=== PATIENT | female | born 1940 | race Caucasian/White ===

== ENCOUNTER 2016-12-12 06:44 | Day surgery (SDC) | payer OTHER ==
[2016-12-12] MEDS ORDERED: TRASTUZUMAB IVPB ONE (08:00)
[2016-12-12] MEDS ORDERED: SODIUM CHLORIDE IVPB ONE (08:00)
[2016-12-12 08:25] LABS: BASOPHIL 1.5 % (0-2.0); EOSINOPHIL 2.1 % (0-4.5); MCHC 33.6 g/dl (32.0-36.0); MEAN CELL VOLUME 89.2 fl (80-96); MEAN PLT VOLUME 9.8 fl (7.5-11.1); NEUTROPHILS 64.3 % (42.8-82.8); PLATELET COUNT 127 K/MM3 (134-434); RDW 14.1 % (11.6-15.6); WHITE BLOOD COUNT 10.9 K/mm3 (4.0-10.0)
[2016-12-12 13:17] VITALS: BMI 24.7
[2016-12-12 13:38] VITALS: BP 122/72; PULSE 72; TEMP 98
== END 2016-12-12 10:15 | disposition home or self-care (01) ==
LOC: JONCCHEMO 06:44 → J7W 09:02 → JONCCHEMO 10:15
PROVIDERS: ATTEND Internal Medicine Hematology & Oncology
PROC: 3E04305 Introduction of Other Antineoplastic into Central Vein, Percutaneous Approach (ICD-10-PCS; principal; 2016-12-12)
PROC: 3E0437Z Introduction of Electrolytic and Water Balance Substance into Central Vein, Percutaneous Approach (ICD-10-PCS; 2016-12-12)
DX: Z51.11 Encounter for antineoplastic chemotherapy (principal); C50.212 Malignant neoplasm of upper-inner quadrant of left female breast
CPT/HCPCS: 36415; 85025; 96413; J9355

== ENCOUNTER 2017-01-02 07:07 | Day surgery (SDC) | payer OTHER ==
[2017-01-02] MEDS ORDERED: SODIUM CHLORIDE IVPB ONE (08:00)
[2017-01-02] MEDS ORDERED: TRASTUZUMAB IVPB ONE (08:00)
[2017-01-02 08:26] LABS: BASOPHIL 1.2 % (0-2.0); EOSINOPHIL 2.6 % (0-4.5); MCH 30.1 pg (25.7-33.7); MCHC 33.1 g/dl (32.0-36.0); MEAN CELL VOLUME 90.8 fl (80-96); MEAN PLT VOLUME 9.9 fl (7.5-11.1); NEUTROPHILS 66.1 % (42.8-82.8); PLATELET COUNT 120 K/MM3 (134-434); RDW 14.4 % (11.6-15.6); WHITE BLOOD COUNT 8.6 K/mm3 (4.0-10.0)
[2017-01-02 09:29] VITALS: PULSE 66
[2017-01-02 10:37] VITALS: BP 130/74; TEMP 98.3
== END 2017-01-02 10:38 | disposition home or self-care (01) ==
LOC: JONCCHEMO 07:07 → J7W 09:08 → JONCCHEMO 10:38
PROVIDERS: ATTEND Internal Medicine Hematology & Oncology
DX: Z51.11 Encounter for antineoplastic chemotherapy (principal); C50.919 Malignant neoplasm of unspecified site of unspecified female breast
CPT/HCPCS: 36415; 85025; 96413; J9355

== ENCOUNTER 2020-10-29 10:16 | Emergency (ER) | payer OTHER ==
[2020-10-29 10:25] VITALS: BMI 25.0
[2020-10-29 15:22] VITALS: BP 122/76; PULSE 103; TEMP 97.9
== END 2020-10-29 17:48 | disposition home or self-care (01) ==
LOC: JER 10:16
DX: M51.24 Other intervertebral disc displacement, thoracic region (principal); M54.6 Pain in thoracic spine
CPT/HCPCS: 72128-TC; 99284-25

== ENCOUNTER 2020-11-10 04:10 | Inpatient (IN) | payer OTHER ==
[2020-11-09 10:40] VITALS: BMI 24.2
[2020-11-10] MEDS ORDERED: VANCOMYCIN 1,000 MG VIAL (RESTRICTED TO ID ONLY) ONE (07:15)
[2020-11-10] MEDS ORDERED: GENTAMICIN SO4 80 MG/2 ML VIAL ONE (07:15)
[2020-11-10] MEDS ORDERED: fentaNYL CITRATE 250 MCG/5 ML VIAL ONE (07:40)
[2020-11-10] MEDS ORDERED: PROPOFOL 20 ML ONE (07:41)
[2020-11-10] MEDS ORDERED: SUCCINYLCHOLINE CHLORIDE 200 MG/10 ML SYRINGE ONE (07:41)
[2020-11-10] MEDS ORDERED: MIDAZOLAM HCL 2 MG/2 ML SINGLE DOSE VIAL ONE (07:41)
[2020-11-10] MEDS ORDERED: ROCURONIUM BROMIDE 50 MG/5 ML SYRINGE ONE ×2 (07:41→08:46)
[2020-11-10] MEDS ORDERED: EPHEDRINE SULFATE/0.9% NACL/PF 50 MG/10 ML SYRINGE NR ONE (07:51)
[2020-11-10] MEDS ORDERED: LIDOCAINE 1%/EPI 1:100000 (50 ML MULTI DOSE VIAL) INF ONE (08:38)
[2020-11-10] MEDS ORDERED: ceFAZolin SODIUM 1 GM VIAL IVPB ONE (08:38)
[2020-11-10] MEDS ORDERED: VANCOMYCIN 1,000 MG VIAL (RESTRICTED TO ID ONLY) IVPB ONE (08:38)
[2020-11-10] MEDS ORDERED: KETAMINE HCL 200 MG/20 ML VIAL ONE (09:03)
[2020-11-10] MEDS ORDERED: BUPIVACAINE LIPOSOME/PF (EXPAREL) 266 MG/20 ML VIAL ONE (09:28)
[2020-11-10] MEDS ORDERED: HYDROmorphone HCl 2 MG/ML VIAL ONE ×2 (09:51→12:37)
[2020-11-10] MEDS ORDERED: DEXAMETHASONE SOD PHOSPHATE 4 MG/1 ML VIAL ONE ×2 (10:15→10:16)
[2020-11-10] MEDS ORDERED: ONDANSETRON 4 MG/2 ML VIAL ONE (10:16)
[2020-11-10] MEDS ORDERED: PHENYLEPHRINE HCL 10 MG/1 ML SINGLE DOSE VIAL ONE (10:16)
[2020-11-10] MEDS ORDERED: TRANEXAMIC ACID 1000 MG/10 ML VIAL ONE ×2 (10:16→11:29)
[2020-11-10] MEDS ORDERED: ceFAZolin SODIUM 1 GM VIAL ONE (10:16)
[2020-11-10] MEDS ORDERED: ACETAMINOPHEN INJECTION 100 ML IVPB ONE (10:32)
[2020-11-10] MEDS ORDERED: GLYCOPYRROLATE 0.2 MG/1 ML VIAL ONE (11:17)
[2020-11-10] MEDS ORDERED: NEOSTIGMINE METHYLSULFATE 0.5 MG/1 ML - 10 ML MDV ONE (11:17)
[2020-11-10] MEDS ORDERED: ACETAMINOPHEN 1000 MG/100 ML VIAL (NON FORMULARY) IVPB ONE (11:30)
[2020-11-10] MEDS ORDERED: BUPIVACAINE LIPOSOME/PF (EXPAREL) 266 MG/20 ML VIAL NR ONE (11:34)
[2020-11-10] MEDS ORDERED: BUPIVACAINE HCL/PF 0.5% (5MG/ML) 10 ML VIAL IJ ONE (11:34)
[2020-11-10] MEDS ORDERED: oxyCODONE HCL 5 MG TABLET PO PRN ×2 (11:36)
[2020-11-10] MEDS ORDERED: ONDANSETRON 4 MG/2 ML VIAL IVPUSH PRN ×3 (11:36→12:56)
[2020-11-10] MEDS ORDERED: diphenhydrAMINE HCL 25 MG CAPSULE (FP) PO PRN ×2 (11:36→12:56)
[2020-11-10] MEDS ORDERED: morphine SULFATE 4 MG/ML VIAL IVPUSH PRN (11:36)
[2020-11-10] MEDS ORDERED: LACTATED RINGERS SOLUTION 1,000 ML/1,000 ML INFUS.BAG IV SCH ×2 (11:45→12:56)
[2020-11-10] MEDS ORDERED: PROMETHAZINE HCL 25 MG/1 ML VIAL IVPB PRN (12:35)
[2020-11-10] MEDS ORDERED: HYDROmorphone HCL CARPU-JECT 2 MG/1 ML DISP.SYRIN IVPUSH ONE (12:35)
[2020-11-10] MEDS ORDERED: HYDROmorphone HCl 2 MG/ML VIAL IVPUSH PRN (12:36)
[2020-11-10] MEDS ORDERED: LACTATED RINGERS SOLUTION 1,000 ML IV SCH (12:45)
[2020-11-10] MEDS ORDERED: HYDROmorphone *PCA* 10MG/50ML DISP.SYRIN PCA ONE (12:50)
[2020-11-10] MEDS: HYDROmorphone *PCA* 10MG/50ML DISP.SYRIN PCA SCH (12:50)
[2020-11-10] MEDS ORDERED: HEPARIN NA (PORCINE) 5,000 UNITS/ML 1ML VIAL SQ SCH (14:00)
[2020-11-10] MEDS ORDERED: DOCUSATE SODIUM 100 MG CAPSULE (FP) PO SCH (14:00)
[2020-11-10] MEDS: CEFAZOLIN 1 GM/D5W 1 GM/50 ML BAG IVPB SCH (17:51)
[2020-11-10] MEDS: DOCUSATE SODIUM 100 MG CAPSULE (FP) PO SCH ×2 (17:52→21:17)
[2020-11-10] MEDS ORDERED: CEFAZOLIN 1 GM in DEXTROSE 5%-WATER - 1 GM/50 ML IVPB IVPB SCH (18:00)
[2020-11-10] MEDS: HEPARIN NA (PORCINE) 5,000 UNITS/ML 1ML VIAL SQ SCH (21:17)
[2020-11-11] MEDS: CEFAZOLIN 1 GM/D5W 1 GM/50 ML BAG IVPB SCH ×3 (01:08→18:02)
[2020-11-11] MEDS: DOCUSATE SODIUM 100 MG CAPSULE (FP) PO SCH ×3 (05:50→22:50)
[2020-11-11] MEDS: HEPARIN NA (PORCINE) 5,000 UNITS/ML 1ML VIAL SQ SCH ×3 (05:50→22:50)
[2020-11-11 09:28] LABS: HEMATOCRIT 24.7 % (32.4-45.2); MCH 29.4 pg (25.7-33.7); MCHC 32.4 g/dl (32.0-36.0); MEAN CELL VOLUME 90.7 fl (80-96); MEAN PLT VOLUME 10.2 fl (7.5-11.1); PLATELET COUNT 120 K/MM3 (134-434); RBC 2.73 M/mm3 (3.60-5.2); RDW 14.3 % (11.6-15.6)
[2020-11-11] MEDS: PANTOPRAZOLE 20 MG TABLET PO SCH (09:38)
[2020-11-11] MEDS: FOLIC ACID 1 MG TABLET (FP) PO SCH (09:39)
[2020-11-11] MEDS: ESCITALOPRAM OXALATE 10 MG TABLET PO SCH (09:39)
[2020-11-11] MEDS: FERROUS SO4 325 MG TABLET (FP) PO SCH (09:39)
[2020-11-11 09:47] LABS: BLOOD UREA NITROGEN 21.9 mg/dL (7-18)
[2020-11-11 09:51] LABS: CREATININE 0.3 mg/dL (0.55-1.3)
[2020-11-11] MEDS: RAMIPRIL 2.5 MG CAPSULE PO SCH (09:53)
[2020-11-11] MEDS: SOTALOL HCL 80 MG TABLET (FP) PO SCH (09:54)
[2020-11-11] MEDS ORDERED: FERROUS SO4 325 MG TABLET (FP) PO SCH (10:00)
[2020-11-11] MEDS ORDERED: RAMIPRIL 2.5 MG CAPSULE PO SCH (10:00)
[2020-11-11] MEDS ORDERED: SOTALOL HCL 80 MG TABLET (FP) PO SCH (10:00)
[2020-11-11] MEDS ORDERED: FOLIC ACID 1 MG TABLET (FP) PO SCH (10:00)
[2020-11-11] MEDS ORDERED: LACTATED RINGERS SOLUTION 1,000 ML/1,000 ML INFUS.BAG IV SCH (10:11)
[2020-11-11] MEDS: ACETAMINOPHEN 500 MG TABLET (FP) PO SCH ×3 (12:35→22:50)
[2020-11-11 15:32] LABS: EPI CELLS 13 /uL (0-25.1); HYALINE CASTS 3 /uL (0-3.1); PH,URINE 5.5 (5.0-8.0); URINE APPEARANCE CLOUDY; URINE BACTERIA 43 /uL (0-1359); URINE BILIRUBIN NEGATIVE (NEGATIVE); URINE COLOR YELLOW; URINE GLUCOSE (UA) NEGATIVE (NEGATIVE); URINE KETONE NEGATIVE (NEGATIVE); URINE LEUK ESTERASE NEGATIVE (NEGATIVE); URINE NITRITE NEGATIVE (NEGATIVE); URINE PROTEIN 1+ (NEGATIVE); URINE UROBILINOGEN 0.2 mg/dL (0.2-1.0); URINE WBC 36 /uL (0-25.8)
[2020-11-12] MEDS: CEFAZOLIN 1 GM/D5W 1 GM/50 ML BAG IVPB SCH ×3 (01:18→17:48)
[2020-11-12] MEDS: HYDROmorphone *PCA* 10MG/50ML DISP.SYRIN PCA SCH (03:31)
[2020-11-12] MEDS: ACETAMINOPHEN 500 MG TABLET (FP) PO SCH ×5 (06:58→22:31)
[2020-11-12] MEDS: DOCUSATE SODIUM 100 MG CAPSULE (FP) PO SCH ×3 (06:59→22:02)
[2020-11-12] MEDS: HEPARIN NA (PORCINE) 5,000 UNITS/ML 1ML VIAL SQ SCH ×3 (06:59→22:02)
[2020-11-12 09:00] LABS: BASO % 0.2 % (0-2.0); EOS % 0.5 % (0-4.5); HEMATOCRIT 25.7 % (32.4-45.2); HEMOGLOBIN 8.6 GM/dL (10.7-15.3); LYMPH % 9.5 % (8-40); MCH 30.3 pg (25.7-33.7); MCHC 33.6 g/dl (32.0-36.0); MEAN CELL VOLUME 89.9 fl (80-96); MEAN PLT VOLUME 10.7 fl (7.5-11.1); MONO % 5.2 % (3.8-10.2); NEUT % 84.6 % (42.8-82.8); PLATELET COUNT 119 K/MM3 (134-434); RBC 2.86 M/mm3 (3.60-5.2); RDW 14.2 % (11.6-15.6); WHITE BLOOD COUNT 9.4 K/mm3 (4.0-10.0)
[2020-11-12] MEDS: ESCITALOPRAM OXALATE 10 MG TABLET PO SCH (09:10)
[2020-11-12] MEDS: FERROUS SO4 325 MG TABLET (FP) PO SCH (09:10)
[2020-11-12] MEDS: PANTOPRAZOLE 20 MG TABLET PO SCH (09:10)
[2020-11-12] MEDS: FOLIC ACID 1 MG TABLET (FP) PO SCH (09:10)
[2020-11-12 09:11] LABS: POTASSIUM 3.4 mmol/L (3.5-5.1)
[2020-11-12] MEDS: SOTALOL HCL 80 MG TABLET (FP) PO SCH (09:11)
[2020-11-12] MEDS: RAMIPRIL 2.5 MG CAPSULE PO SCH (09:11)
[2020-11-12 09:14] LABS: CALCIUM 8.1 mg/dL (8.5-10.1)
[2020-11-12 09:15] LABS: BLOOD UREA NITROGEN 19.1 mg/dL (7-18)
[2020-11-12 09:17] LABS: CREATININE 0.5 mg/dL (0.55-1.3)
[2020-11-12] MEDS ORDERED: POTASSIUM CHLORIDE TABS 20 MEQ TABLET.ER (FP) PO ONE (09:42)
[2020-11-12] MEDS ORDERED: PCA PUMP NR ONE (11:09)
[2020-11-12] MEDS: oxyCODONE HCL 5 MG TABLET PO PRN ×3 (11:53→22:18)
[2020-11-12] MEDS ORDERED: MORPHINE SULFATE 2 MG/ML VIAL IVPUSH PRN (13:16)
[2020-11-12] MEDS: POLYETHYLENE GLYCOL 3350 119 GM BTL PO SCH (15:17)
[2020-11-12] MEDS ORDERED: PT OWN MED DRAWER 7, Y5N ONE (18:18)
[2020-11-13] MEDS: CEFAZOLIN 1 GM/D5W 1 GM/50 ML BAG IVPB SCH ×3 (02:40→18:03)
[2020-11-13] MEDS: ACETAMINOPHEN 500 MG TABLET (FP) PO SCH ×2 (05:13→22:53)
[2020-11-13] MEDS: HEPARIN NA (PORCINE) 5,000 UNITS/ML 1ML VIAL SQ SCH ×3 (05:14→22:53)
[2020-11-13] MEDS: DOCUSATE SODIUM 100 MG CAPSULE (FP) PO SCH ×3 (05:14→22:53)
[2020-11-13] MEDS: oxyCODONE HCL 5 MG TABLET PO PRN ×3 (05:38→15:34)
[2020-11-13] MEDS: RAMIPRIL 2.5 MG CAPSULE PO SCH (09:28)
[2020-11-13] MEDS: FOLIC ACID 1 MG TABLET (FP) PO SCH (09:29)
[2020-11-13] MEDS: POLYETHYLENE GLYCOL 3350 119 GM BTL PO SCH (09:29)
[2020-11-13] MEDS: ESCITALOPRAM OXALATE 10 MG TABLET PO SCH (09:29)
[2020-11-13] MEDS: SOTALOL HCL 80 MG TABLET (FP) PO SCH (09:29)
[2020-11-13] MEDS: PANTOPRAZOLE 20 MG TABLET PO SCH (09:29)
[2020-11-13 09:37] LABS: BASO % 0.7 % (0-2.0); EOS % 1.2 % (0-4.5); HEMATOCRIT 25.8 % (32.4-45.2); HEMOGLOBIN 8.6 GM/dL (10.7-15.3); LYMPH % 15.6 % (8-40); MCHC 33.4 g/dl (32.0-36.0); MEAN CELL VOLUME 89.9 fl (80-96); MEAN PLT VOLUME 10.7 fl (7.5-11.1); NEUT % 78.5 % (42.8-82.8); PLATELET COUNT 116 K/MM3 (134-434); RBC 2.87 M/mm3 (3.60-5.2); RDW 14.3 % (11.6-15.6); WHITE BLOOD COUNT 9.9 K/mm3 (4.0-10.0)
[2020-11-13 10:03] LABS: POTASSIUM 3.4 mmol/L (3.5-5.1)
[2020-11-13 10:04] LABS: CALCIUM 7.9 mg/dL (8.5-10.1)
[2020-11-13 10:05] LABS: BLOOD UREA NITROGEN 15.1 mg/dL (7-18)
[2020-11-13 10:08] LABS: CREATININE 0.5 mg/dL (0.55-1.3)
[2020-11-13] MEDS: GABAPENTIN 100 MG CAPSULE PO SCH ×2 (13:28→22:54)
[2020-11-13] MEDS: POTASSIUM CHLORIDE TABS 20 MEQ TABLET.ER (FP) PO SCH (13:28)
[2020-11-13] MEDS: TAMSULOSIN HCL 0.4 MG CAP PO SCH (13:28)
[2020-11-13] MEDS: CYANOCOBALAMIN (VITAMIN B-12) 1000 MCG/1 ML VIAL IM SCH (16:43)
[2020-11-13] MEDS ORDERED: FERRIC CARBOXYMALTOSE 750 MG in SODIUM CHLORIDE 250 ML IVPB ONE (17:00)
[2020-11-14] MEDS ORDERED: ceFAZolin SODIUM 1 GM VIAL ONE ×3 (02:11→17:12)
[2020-11-14] MEDS ORDERED: DEXTROSE 5%-WATER - 50 ML IVPB ONE ×3 (02:11→17:12)
[2020-11-14] MEDS: CEFAZOLIN 1 GM in DEXTROSE 5%-WATER - 1 GM/50 ML IVPB IVPB SCH ×3 (02:15→17:24)
[2020-11-14] MEDS: DOCUSATE SODIUM 100 MG CAPSULE (FP) PO SCH ×3 (06:25→21:27)
[2020-11-14] MEDS: GABAPENTIN 100 MG CAPSULE PO SCH ×3 (06:25→21:27)
[2020-11-14] MEDS: ACETAMINOPHEN 500 MG TABLET (FP) PO SCH ×3 (06:25→17:24)
[2020-11-14 08:31] LABS: BASO % 0.5 % (0-2.0); EOS % 2.6 % (0-4.5); HEMATOCRIT 25.7 % (32.4-45.2); HEMOGLOBIN 8.7 GM/dL (10.7-15.3); LYMPH % 15.7 % (8-40); MCH 30.3 pg (25.7-33.7); MEAN CELL VOLUME 89.2 fl (80-96); MEAN PLT VOLUME 10.2 fl (7.5-11.1); MONO % 5.4 % (3.8-10.2); NEUT % 75.8 % (42.8-82.8); PLATELET COUNT 143 K/MM3 (134-434); RBC 2.88 M/mm3 (3.60-5.2); RDW 14.3 % (11.6-15.6)
[2020-11-14 08:38] LABS: POTASSIUM 4.2 mmol/L (3.5-5.1)
[2020-11-14 08:41] LABS: BLOOD UREA NITROGEN 13.2 mg/dL (7-18); CALCIUM 8.2 mg/dL (8.5-10.1)
[2020-11-14 08:45] LABS: CREATININE 0.4 mg/dL (0.55-1.3)
[2020-11-14] MEDS: RAMIPRIL 2.5 MG CAPSULE PO SCH (09:51)
[2020-11-14] MEDS: ESCITALOPRAM OXALATE 10 MG TABLET PO SCH (09:51)
[2020-11-14] MEDS: PANTOPRAZOLE 20 MG TABLET PO SCH (09:51)
[2020-11-14] MEDS: FOLIC ACID 1 MG TABLET (FP) PO SCH (09:51)
[2020-11-14] MEDS: POTASSIUM CHLORIDE TABS 20 MEQ TABLET.ER (FP) PO SCH (09:51)
[2020-11-14] MEDS: HEPARIN NA (PORCINE) 5,000 UNITS/ML 1ML VIAL SQ SCH ×2 (09:51→21:26)
[2020-11-14] MEDS: SOTALOL HCL 80 MG TABLET (FP) PO SCH (09:51)
[2020-11-14] MEDS: TAMSULOSIN HCL 0.4 MG CAP PO SCH (09:52)
[2020-11-14] MEDS: oxyCODONE HCL 5 MG TABLET PO PRN ×2 (09:52→21:26)
[2020-11-14] MEDS: POLYETHYLENE GLYCOL 3350 119 GM BTL PO SCH (09:58)
[2020-11-14] MEDS: IRON POLYSACCHARIDES 150 MG CAPSULE PO SCH (09:58)
[2020-11-14] MEDS: CYANOCOBALAMIN (VITAMIN B-12) 1000 MCG/1 ML VIAL IM SCH (09:59)
[2020-11-14] MEDS ORDERED: PT OWN MED DRAWER 7, Y5N ONE (10:15)
[2020-11-15] MEDS ORDERED: DEXTROSE 5%-WATER - 50 ML IVPB ONE ×4 (01:50→16:06)
[2020-11-15] MEDS ORDERED: ceFAZolin SODIUM 1 GM VIAL ONE ×4 (01:50→16:06)
[2020-11-15] MEDS: CEFAZOLIN 1 GM in DEXTROSE 5%-WATER - 1 GM/50 ML IVPB IVPB SCH ×3 (01:54→18:12)
[2020-11-15] MEDS: oxyCODONE HCL 5 MG TABLET PO PRN ×4 (03:03→21:45)
[2020-11-15] MEDS: DOCUSATE SODIUM 100 MG CAPSULE (FP) PO SCH ×3 (06:09→21:46)
[2020-11-15] MEDS: ACETAMINOPHEN 500 MG TABLET (FP) PO SCH ×4 (06:09→16:09)
[2020-11-15] MEDS: GABAPENTIN 100 MG CAPSULE PO SCH ×3 (06:09→21:47)
[2020-11-15 08:33] LABS: EOS % 3.9 % (0-4.5); HEMATOCRIT 26.2 % (32.4-45.2); HEMOGLOBIN 8.8 GM/dL (10.7-15.3); LYMPH % 19.7 % (8-40); MCHC 33.5 g/dl (32.0-36.0); MEAN CELL VOLUME 89.5 fl (80-96); MEAN PLT VOLUME 10.1 fl (7.5-11.1); MONO % 7.2 % (3.8-10.2); NEUT % 68.2 % (42.8-82.8); PLATELET COUNT 170 K/MM3 (134-434); RBC 2.92 M/mm3 (3.60-5.2); RDW 14.5 % (11.6-15.6); WHITE BLOOD COUNT 9.4 K/mm3 (4.0-10.0)
[2020-11-15 09:03] LABS: POTASSIUM 4.6 mmol/L (3.5-5.1)
[2020-11-15 09:12] LABS: BLOOD UREA NITROGEN 16.6 mg/dL (7-18); CALCIUM 8.3 mg/dL (8.5-10.1)
[2020-11-15 09:15] LABS: CREATININE 0.4 mg/dL (0.55-1.3)
[2020-11-15] MEDS ORDERED: PT OWN MED DRAWER 7, Y5N ONE ×2 (09:43→16:07)
[2020-11-15] MEDS: TAMSULOSIN HCL 0.4 MG CAP PO SCH (09:47)
[2020-11-15] MEDS: IRON POLYSACCHARIDES 150 MG CAPSULE PO SCH (09:47)
[2020-11-15] MEDS: RAMIPRIL 2.5 MG CAPSULE PO SCH (09:47)
[2020-11-15] MEDS: ESCITALOPRAM OXALATE 10 MG TABLET PO SCH (09:47)
[2020-11-15] MEDS: POTASSIUM CHLORIDE TABS 20 MEQ TABLET.ER (FP) PO SCH (09:47)
[2020-11-15] MEDS: SOTALOL HCL 80 MG TABLET (FP) PO SCH (09:47)
[2020-11-15] MEDS: FOLIC ACID 1 MG TABLET (FP) PO SCH (09:48)
[2020-11-15] MEDS: CYANOCOBALAMIN (VITAMIN B-12) 1000 MCG/1 ML VIAL IM SCH (09:48)
[2020-11-15] MEDS: POLYETHYLENE GLYCOL 3350 119 GM BTL PO SCH (09:48)
[2020-11-15] MEDS: PANTOPRAZOLE 20 MG TABLET PO SCH (09:48)
[2020-11-15] MEDS: HEPARIN NA (PORCINE) 5,000 UNITS/ML 1ML VIAL SQ SCH ×2 (09:48→21:45)
[2020-11-16] MEDS ORDERED: ceFAZolin SODIUM 1 GM VIAL ONE ×3 (01:22→15:17)
[2020-11-16] MEDS ORDERED: DEXTROSE 5%-WATER - 50 ML IVPB ONE ×3 (01:22→15:17)
[2020-11-16] MEDS: CEFAZOLIN 1 GM in DEXTROSE 5%-WATER - 1 GM/50 ML IVPB IVPB SCH ×3 (01:24→17:10)
[2020-11-16] MEDS: ACETAMINOPHEN 500 MG TABLET (FP) PO SCH ×2 (05:59)
[2020-11-16] MEDS: DOCUSATE SODIUM 100 MG CAPSULE (FP) PO SCH ×3 (06:00→22:01)
[2020-11-16] MEDS: GABAPENTIN 100 MG CAPSULE PO SCH ×3 (06:58→22:00)
[2020-11-16 08:41] LABS: BASO % 0.6 % (0-2.0); EOS % 3.9 % (0-4.5); HEMATOCRIT 27.2 % (32.4-45.2); LYMPH % 17.4 % (8-40); MCH 29.9 pg (25.7-33.7); MEAN CELL VOLUME 90.7 fl (80-96); MEAN PLT VOLUME 9.6 fl (7.5-11.1); MONO % 8.3 % (3.8-10.2); NEUT % 69.8 % (42.8-82.8); PLATELET COUNT 203 K/MM3 (134-434); RDW 14.4 % (11.6-15.6); WHITE BLOOD COUNT 9.9 K/mm3 (4.0-10.0)
[2020-11-16 08:56] LABS: POTASSIUM 4.8 mmol/L (3.5-5.1)
[2020-11-16 08:59] LABS: BLOOD UREA NITROGEN 13.9 mg/dL (7-18); CALCIUM 8.6 mg/dL (8.5-10.1)
[2020-11-16 09:02] LABS: CREATININE 0.5 mg/dL (0.55-1.3)
[2020-11-16] MEDS: HEPARIN NA (PORCINE) 5,000 UNITS/ML 1ML VIAL SQ SCH ×2 (09:22→22:00)
[2020-11-16] MEDS: PANTOPRAZOLE 20 MG TABLET PO SCH (09:22)
[2020-11-16] MEDS: ESCITALOPRAM OXALATE 10 MG TABLET PO SCH (09:22)
[2020-11-16] MEDS: TAMSULOSIN HCL 0.4 MG CAP PO SCH (09:22)
[2020-11-16] MEDS: POLYETHYLENE GLYCOL 3350 119 GM BTL PO SCH (09:22)
[2020-11-16] MEDS: IRON POLYSACCHARIDES 150 MG CAPSULE PO SCH (09:22)
[2020-11-16] MEDS: RAMIPRIL 2.5 MG CAPSULE PO SCH (09:22)
[2020-11-16] MEDS: SOTALOL HCL 80 MG TABLET (FP) PO SCH (09:22)
[2020-11-16] MEDS: POTASSIUM CHLORIDE TABS 20 MEQ TABLET.ER (FP) PO SCH (09:22)
[2020-11-16] MEDS: FOLIC ACID 1 MG TABLET (FP) PO SCH (09:22)
[2020-11-16] MEDS: oxyCODONE HCL 5 MG TABLET PO PRN ×3 (09:23→20:32)
[2020-11-16] MEDS: CYANOCOBALAMIN (VITAMIN B-12) 1000 MCG/1 ML VIAL IM SCH (09:26)
[2020-11-16 10:36] LABS: ANISOCYTOSIS 0; MACROCYTOSIS 0; PLATELET ESTIMATE NORMAL
[2020-11-17] MEDS ORDERED: ceFAZolin SODIUM 1 GM VIAL ONE ×3 (02:08→17:25)
[2020-11-17] MEDS ORDERED: DEXTROSE 5%-WATER - 50 ML IVPB ONE ×3 (02:08→17:25)
[2020-11-17] MEDS: CEFAZOLIN 1 GM in DEXTROSE 5%-WATER - 1 GM/50 ML IVPB IVPB SCH ×3 (02:25→17:35)
[2020-11-17] MEDS: DOCUSATE SODIUM 100 MG CAPSULE (FP) PO SCH ×3 (06:09→22:44)
[2020-11-17] MEDS: GABAPENTIN 100 MG CAPSULE PO SCH ×2 (06:09→15:28)
[2020-11-17] MEDS: IRON POLYSACCHARIDES 150 MG CAPSULE PO SCH (10:53)
[2020-11-17] MEDS: POTASSIUM CHLORIDE TABS 20 MEQ TABLET.ER (FP) PO SCH (10:53)
[2020-11-17] MEDS: SOTALOL HCL 80 MG TABLET (FP) PO SCH (10:53)
[2020-11-17] MEDS: HEPARIN NA (PORCINE) 5,000 UNITS/ML 1ML VIAL SQ SCH ×2 (10:53→22:44)
[2020-11-17] MEDS: FOLIC ACID 1 MG TABLET (FP) PO SCH (10:53)
[2020-11-17] MEDS: PANTOPRAZOLE 20 MG TABLET PO SCH (10:53)
[2020-11-17] MEDS: TAMSULOSIN HCL 0.4 MG CAP PO SCH (10:53)
[2020-11-17] MEDS: CYANOCOBALAMIN (VITAMIN B-12) 1000 MCG/1 ML VIAL IM SCH (10:53)
[2020-11-17] MEDS: RAMIPRIL 2.5 MG CAPSULE PO SCH (10:53)
[2020-11-17] MEDS: ESCITALOPRAM OXALATE 10 MG TABLET PO SCH (10:54)
[2020-11-17] MEDS: POLYETHYLENE GLYCOL 3350 119 GM BTL PO SCH (11:00)
[2020-11-17] MEDS ORDERED: guaiFENesin 200 MG/10 ML 10 ML UNIT-DOSE CUPS PO PRN (20:29)
[2020-11-17] MEDS: GABAPENTIN 300 MG CAPSULE PO SCH (22:44)
[2020-11-17] MEDS: oxyCODONE HCL 5 MG TABLET PO PRN (22:51)
[2020-11-18] MEDS ORDERED: ceFAZolin SODIUM 1 GM VIAL ONE ×2 (02:05→09:27)
[2020-11-18] MEDS ORDERED: DEXTROSE 5%-WATER - 50 ML IVPB ONE ×2 (02:05→09:27)
[2020-11-18] MEDS: CEFAZOLIN 1 GM in DEXTROSE 5%-WATER - 1 GM/50 ML IVPB IVPB SCH ×2 (02:29→09:28)
[2020-11-18] MEDS: DOCUSATE SODIUM 100 MG CAPSULE (FP) PO SCH ×2 (06:19→13:09)
[2020-11-18] MEDS: GABAPENTIN 300 MG CAPSULE PO SCH ×2 (06:19→13:09)
[2020-11-18] MEDS: IRON POLYSACCHARIDES 150 MG CAPSULE PO SCH (09:28)
[2020-11-18] MEDS: FOLIC ACID 1 MG TABLET (FP) PO SCH (09:28)
[2020-11-18] MEDS: HEPARIN NA (PORCINE) 5,000 UNITS/ML 1ML VIAL SQ SCH (09:28)
[2020-11-18] MEDS: POTASSIUM CHLORIDE TABS 20 MEQ TABLET.ER (FP) PO SCH (09:28)
[2020-11-18] MEDS: ESCITALOPRAM OXALATE 10 MG TABLET PO SCH (09:28)
[2020-11-18] MEDS: TAMSULOSIN HCL 0.4 MG CAP PO SCH (09:28)
[2020-11-18] MEDS: PANTOPRAZOLE 20 MG TABLET PO SCH (09:28)
[2020-11-18] MEDS: oxyCODONE HCL 5 MG TABLET PO PRN (09:28)
[2020-11-18] MEDS ORDERED: PT OWN MED DRAWER 7, Y5N ONE (09:43)
[2020-11-18] MEDS: CYANOCOBALAMIN (VITAMIN B-12) 1000 MCG/1 ML VIAL IM SCH (09:43)
[2020-11-18] MEDS: SOTALOL HCL 80 MG TABLET (FP) PO SCH (09:43)
[2020-11-18] MEDS: RAMIPRIL 2.5 MG CAPSULE PO SCH (09:43)
[2020-11-18] MEDS: POLYETHYLENE GLYCOL 3350 119 GM BTL PO SCH (09:43)
[2020-11-18 14:37] VITALS: BP 123/67; PULSE 83; TEMP 98.9
== END 2020-11-18 15:00 | DRG 460 ==
LOC: J2C 04:10 → J6S 16:34
PROVIDERS: ADMIT Neurological Surgery; ATTEND Family Medicine
PROC: 00NX0ZZ Release Thoracic Spinal Cord, Open Approach (ICD-10-PCS; 2020-11-10)
PROC: 0RT90ZZ Resection of Thoracic Vertebral Disc, Open Approach (ICD-10-PCS; 2020-11-10)
PROC: 00QT0ZZ Repair Spinal Meninges, Open Approach (ICD-10-PCS; 2020-11-10)
PROC: 0PS404Z Reposition Thoracic Vertebra with Internal Fixation Device, Open Approach (ICD-10-PCS; 2020-11-10)
PROC: 0JX70ZC Transfer Back Subcutaneous Tissue and Fascia with Skin, Subcutaneous Tissue and Fascia, Open Approach (ICD-10-PCS; 2020-11-10)
PROC: 4A1104G Monitoring of Peripheral Nervous Electrical Activity, Intraoperative, Open Approach (ICD-10-PCS; 2020-11-10)
PROC: B01BZZZ Fluoroscopy of Spinal Cord (ICD-10-PCS; 2020-11-10)
PROC: 0RG7071 Fusion of 2 to 7 Thoracic Vertebral Joints with Autologous Tissue Substitute, Posterior Approach, Posterior Column, Open Approach (ICD-10-PCS; principal; 2020-11-10 08:00)
DX: M47.14 Other spondylosis with myelopathy, thoracic region (principal); G95.20 Unspecified cord compression; G96.11 Dural tear; M54.5 Low back pain; I10 Essential (primary) hypertension; M54.6 Pain in thoracic spine; M79.604 Pain in right leg; M79.605 Pain in left leg; I25.10 Atherosclerotic heart disease of native coronary artery without angina pectoris; F32.9 Major depressive disorder, single episode, unspecified; K21.9 Gastro-esophageal reflux disease without esophagitis; E78.5 Hyperlipidemia, unspecified; Z95.5 Presence of coronary angioplasty implant and graft
CPT/HCPCS: 36415; 72128-TC; 76000-TC-FY; 80048; 81003; 82607; 82728; 82962; 83540; 83550; 85025; 85027; 86922; 88304-TC; 88311-TC; 93970-TC; 94010; 94760; 97116-GP; 97161-GP; C9803; J0131; J1439; J1644; U0003

== ENCOUNTER 2021-03-08 15:23 | Inpatient (IN) | payer OTHER ==
[2021-03-08] MEDS ORDERED: ACETAMINOPHEN 1000 MG/100 ML VIAL (NON FORMULARY) IVPB ONE (16:28)
[2021-03-08] MEDS ORDERED: ACETAMINOPHEN INJECTION 100 ML IVPB ONE (17:05)
[2021-03-08 17:11] LABS: BASO % 0.4 % (0-2.0); EOS % 0.9 % (0-4.5); HEMATOCRIT 33.6 % (32.4-45.2); HEMOGLOBIN 10.8 GM/dL (10.7-15.3); LYMPH % 15.3 % (8-40); MCH 28.2 pg (25.7-33.7); MEAN CELL VOLUME 88.2 fl (80-96); MONO % 5.8 % (3.8-10.2); NEUT % 77.6 % (42.8-82.8); PLATELET COUNT 308 K/MM3 (134-434); RBC 3.81 M/mm3 (3.60-5.2); RDW 16.2 % (11.6-15.6); WHITE BLOOD COUNT 19.7 K/mm3 (4.0-10.0)
[2021-03-08] MEDS ORDERED: SODIUM CHLORIDE 0.9% 500 ML INFUS.BAG IV ONE (17:11)
[2021-03-08 17:19] LABS: INR 1.21 (0.83-1.09); PROTHROMBIN TIME (PATIENT) 14.8 SEC (9.7-13.0)
[2021-03-08 17:21] LABS: ACTIVATED PTT 28.6 SECONDS (25.2-36.5)
[2021-03-08] MEDS ORDERED: LACTATED RINGERS SOLUTION 1000 ML INFUS.BAG IV ONE ×2 (17:24→17:46)
[2021-03-08 17:26] LABS: EPI CELLS >36 /uL (0-25.1); HYALINE CASTS 24 /uL (0-3.1); URINE APPEARANCE TURBID; URINE BACTERIA 1188 /uL (0-1359); URINE BILIRUBIN NEGATIVE (NEGATIVE); URINE COLOR DK YELLOW; URINE GLUCOSE (UA) NEGATIVE (NEGATIVE); URINE KETONE NEGATIVE (NEGATIVE); URINE LEUK ESTERASE 3+ (NEGATIVE); URINE NITRITE NEGATIVE (NEGATIVE); URINE PROTEIN 1+ (NEGATIVE); URINE WBC 23961 /uL (0-25.8)
[2021-03-08] MEDS ORDERED: CEFTRIAXONE 1,000 MG in DEXTROSE 5%-WATER - 50 ML IVPB ONE (17:27)
[2021-03-08 17:34] LABS: CHLORIDE 108 mmol/L (98-107); SODIUM 144 mmol/L (136-145)
[2021-03-08 17:35] LABS: CALCIUM 9.3 mg/dL (8.5-10.1)
[2021-03-08 17:36] LABS: ALBUMIN 3.1 g/dl (3.4-5.0); ANION GAP 5 MMOL/L (8-16); BLOOD UREA NITROGEN 49.5 mg/dL (7-18); CO2 31 mmol/L (21-32); GLUCOSE,RANDOM 116 mg/dL (74-106)
[2021-03-08 17:39] LABS: CREATININE 0.9 mg/dL (0.55-1.3); SGOT/AST 18 U/L (15-37); SGPT/ALT 12 U/L (13-61)
[2021-03-08] MEDS ORDERED: CEFTRIAXONE 1 GM/50 ML BAG ONE (17:39)
[2021-03-08 17:41] LABS: BILIRUBIN,TOTAL 0.4 mg/dL (0.2-1); TOT PROT 7.6 g/dl (6.4-8.2)
[2021-03-08 17:42] LABS: ALK PHOS 100 U/L (45-117)
[2021-03-08] MEDS ORDERED: CEFTRIAXONE 1 GM in DEXTROSE 5%-WATER - 50 ML IVPB ONE (17:45)
[2021-03-08] MEDS ORDERED: MEROPENEM 1 GM in DEXTROSE 5%-WATER 100 ML IVPB ONE (18:37)
[2021-03-08] MEDS ORDERED: MEROPENEM 1 GM VIAL (RESTRICTED TO ID) IVPB ONE (18:52)
[2021-03-08] MEDS ORDERED: NOREPINEPHRINE NS PREMIX 8,000 MCG/500 ML BAG IVPB SCH (20:00)
[2021-03-08 21:16] LABS: URINE RBC 793.9 /uL (0-23.9); YEAST MODERATE (NEGATIVE)
[2021-03-08] MEDS ORDERED: VASOPRESSIN 40 UNITS in SODIUM CHLORIDE 98 ML IVPB SCH (21:45)
[2021-03-08] MEDS ORDERED: SODIUM CHLORIDE 500 ML IV STA (21:52)
[2021-03-08] MEDS ORDERED: VANCOMYCIN/WATER BAGS 1,250 MG/250 ML BAG IVPB SCH ×2 (22:15→22:30)
[2021-03-08] MEDS ORDERED: VASOPRESSIN 20 UNITS/ML VIAL IV ONE ×2 (22:28→22:29)
[2021-03-08] MEDS: VASOPRESSIN 40 UNITS in SODIUM CHLORIDE 98 ML IVPB SCH (22:51)
[2021-03-08] MEDS: VANCOMYCIN/WATER BAGS 1,250 MG/250 ML BAG IVPB SCH (23:22)
[2021-03-09] MEDS ORDERED: PIPERACILLIN/TAZOB 3.375 GM 3.375 GM in DEXTROSE 5%-WATER - 50 ML IVPB SCH (03:00)
[2021-03-09] MEDS ORDERED: DEXTROSE 5%-WATER - 50 ML IVPB ONE ×3 (03:42→17:51)
[2021-03-09] MEDS ORDERED: PIPERACILLIN/TAZOBACTAM 3.375 GM VIAL IVPB ONE ×3 (03:42→17:50)
[2021-03-09] MEDS: PIPERACILLIN/TAZOB 3.375 GM 3.375 GM in DEXTROSE 5%-WATER - 50 ML IVPB SCH ×3 (04:30→18:40)
[2021-03-09] MEDS: NOREPINEPHRINE NS PREMIX 8,000 MCG/500 ML BAG IVPB SCH (06:31)
[2021-03-09] MEDS: HEPARIN NA (PORCINE) 5,000 UNITS/ML 1ML VIAL SQ SCH ×3 (06:47→22:30)
[2021-03-09 07:24] LABS: INR 1.18 (0.83-1.09); PROTHROMBIN TIME (PATIENT) 14.4 SEC (9.7-13.0)
[2021-03-09 07:26] LABS: ACTIVATED PTT 27.4 SECONDS (25.2-36.5)
[2021-03-09 07:27] LABS: BASO % 0.4 % (0-2.0); EOS % 2.9 % (0-4.5); HEMATOCRIT 27.5 % (32.4-45.2); HEMOGLOBIN 8.8 GM/dL (10.7-15.3); LYMPH % 12.8 % (8-40); MCH 28.5 pg (25.7-33.7); MCHC 31.9 g/dl (32.0-36.0); MEAN CELL VOLUME 89.4 fl (80-96); MEAN PLT VOLUME 10.2 fl (7.5-11.1); MONO % 4.3 % (3.8-10.2); NEUT % 79.6 % (42.8-82.8); PLATELET COUNT 217 K/MM3 (134-434); RBC 3.08 M/mm3 (3.60-5.2); RDW 16.2 % (11.6-15.6); WHITE BLOOD COUNT 13.7 K/mm3 (4.0-10.0)
[2021-03-09 07:56] LABS: ALBUMIN 2.6 g/dl (3.4-5.0); BLOOD UREA NITROGEN 43.2 mg/dL (7-18); CALCIUM 8.4 mg/dL (8.5-10.1)
[2021-03-09 07:58] LABS: CREATININE 0.8 mg/dL (0.55-1.3); PHOSPHOROUS 3.9 mg/dL (2.5-4.9)
[2021-03-09 07:59] LABS: BILIRUBIN,TOTAL 0.4 mg/dL (0.2-1); TOT PROT 6.1 g/dl (6.4-8.2)
[2021-03-09] MEDS: LACTATED RINGERS SOLUTION 1,000 ML/1,000 ML INFUS.BAG IV SCH ×2 (08:35→22:32)
[2021-03-09] MEDS: VANCOMYCIN/WATER BAGS 1,250 MG/250 ML BAG IVPB SCH (10:22)
[2021-03-09] MEDS: MUPIROCIN 2% TOPICAL OINTMENT FOR DECOLONIZATION NS SCH ×2 (10:34→22:31)
[2021-03-09] MEDS: PANTOPRAZOLE SODIUM 40 MG VIAL IVPUSH SCH (10:34)
[2021-03-09] MEDS: VANCOMYCIN 1 GRAM (PRE-DOCKED) 1,000 MG/250 ML BAG IVPB SCH (22:31)
[2021-03-09] MEDS: CHLORHEXIDINE GLUCONATE 4% CLEANSER FOR DECOLONIZATION TP SCH (22:31)
[2021-03-09] MEDS: VASOPRESSIN 40 UNITS in SODIUM CHLORIDE 98 ML IVPB SCH (22:46)
[2021-03-10] MEDS ORDERED: DEXTROSE 5%-WATER - 50 ML IVPB ONE ×3 (02:06→14:48)
[2021-03-10] MEDS ORDERED: PIPERACILLIN/TAZOBACTAM 3.375 GM VIAL IVPB ONE ×3 (02:06→14:48)
[2021-03-10] MEDS: NOREPINEPHRINE NS PREMIX 8,000 MCG/500 ML BAG IVPB SCH (02:46)
[2021-03-10] MEDS: PIPERACILLIN/TAZOB 3.375 GM 3.375 GM in DEXTROSE 5%-WATER - 50 ML IVPB SCH ×3 (02:46→18:30)
[2021-03-10] MEDS: HEPARIN NA (PORCINE) 5,000 UNITS/ML 1ML VIAL SQ SCH ×3 (06:17→22:18)
[2021-03-10] MEDS: LACTATED RINGERS SOLUTION 1,000 ML/1,000 ML INFUS.BAG IV SCH (09:24)
[2021-03-10] MEDS: PANTOPRAZOLE SODIUM 40 MG VIAL IVPUSH SCH (09:24)
[2021-03-10] MEDS: MUPIROCIN 2% TOPICAL OINTMENT FOR DECOLONIZATION NS SCH ×2 (09:24→22:18)
[2021-03-10] MEDS: VANCOMYCIN 1 GRAM (PRE-DOCKED) 1,000 MG/250 ML BAG IVPB SCH ×2 (09:24→23:04)
[2021-03-10 12:53] LABS: HEMATOCRIT 26.1 % (32.4-45.2); HEMOGLOBIN 8.2 GM/dL (10.7-15.3); MCH 28.2 pg (25.7-33.7); MCHC 31.5 g/dl (32.0-36.0); MEAN CELL VOLUME 89.3 fl (80-96); MEAN PLT VOLUME 10.3 fl (7.5-11.1); PLATELET COUNT 197 K/MM3 (134-434); RBC 2.92 M/mm3 (3.60-5.2); RDW 16.1 % (11.6-15.6); WHITE BLOOD COUNT 11.1 K/mm3 (4.0-10.0)
[2021-03-10 13:11] LABS: CHLORIDE 108 mmol/L (98-107); SODIUM 146 mmol/L (136-145)
[2021-03-10 13:15] LABS: ALBUMIN 2.5 g/dl (3.4-5.0); BLOOD UREA NITROGEN 24.8 mg/dL (7-18); CALCIUM 8.6 mg/dL (8.5-10.1); CO2 30 mmol/L (21-32); GLUCOSE,RANDOM 85 mg/dL (74-106); MAGNESIUM 1.9 mg/dL (1.8-2.4)
[2021-03-10 13:18] LABS: SGOT/AST 7 U/L (15-37); SGPT/ALT 8 U/L (13-61)
[2021-03-10 13:19] LABS: CREATININE 0.5 mg/dL (0.55-1.3); PHOSPHOROUS 1.9 mg/dL (2.5-4.9)
[2021-03-10 13:20] LABS: BILIRUBIN,TOTAL 0.4 mg/dL (0.2-1)
[2021-03-10 13:21] LABS: ALK PHOS 82 U/L (45-117)
[2021-03-10 14:06] VITALS: BMI 26.4
[2021-03-10 14:36] LABS: ANION GAP 7 MMOL/L (8-16)
[2021-03-10] MEDS ORDERED: POTASSIUM CHLORIDE ORAL LIQUID 20 MEQ/15 ML PO ONE (15:00)
[2021-03-10] MEDS: KCL 10 MEQ IVPB 10 MEQ/100 ML INFUS.BAG IVPB SCH ×3 (15:20→17:12)
[2021-03-10] MEDS: AMINO ACIDS/PROTEIN HYDROLYS 30 ML LIQUID.PKT PO SCH (19:31)
[2021-03-10] MEDS: CHLORHEXIDINE GLUCONATE 4% CLEANSER FOR DECOLONIZATION TP SCH (22:18)
[2021-03-11] MEDS ORDERED: DEXTROSE 5%-WATER - 50 ML IVPB ONE ×3 (01:00→18:19)
[2021-03-11] MEDS ORDERED: PIPERACILLIN/TAZOBACTAM 3.375 GM VIAL IVPB ONE ×3 (01:00→18:19)
[2021-03-11] MEDS: PIPERACILLIN/TAZOB 3.375 GM 3.375 GM in DEXTROSE 5%-WATER - 50 ML IVPB SCH ×4 (01:06→18:58)
[2021-03-11] MEDS: HEPARIN NA (PORCINE) 5,000 UNITS/ML 1ML VIAL SQ SCH ×3 (05:27→21:44)
[2021-03-11] MEDS: AMINO ACIDS/PROTEIN HYDROLYS 30 ML LIQUID.PKT PO SCH ×2 (08:01→17:03)
[2021-03-11] MEDS: PANTOPRAZOLE SODIUM 40 MG VIAL IVPUSH SCH (09:01)
[2021-03-11] MEDS ORDERED: MULTIVITAMINS THER W-MINERALS COMBO TABLET (FP) PO SCH (10:00)
[2021-03-11] MEDS: VANCOMYCIN 1 GRAM (PRE-DOCKED) 1,000 MG/250 ML BAG IVPB SCH (10:02)
[2021-03-11 11:27] LABS: BASO % 0.7 % (0-2.0); EOS % 1.5 % (0-4.5); LYMPH % 14.4 % (8-40); MEAN CELL VOLUME 87.3 fl (80-96); MEAN PLT VOLUME 10.2 fl (7.5-11.1); MONO % 4.1 % (3.8-10.2); NEUT % 79.3 % (42.8-82.8); PLATELET COUNT 256 K/MM3 (134-434); WHITE BLOOD COUNT 14.1 K/mm3 (4.0-10.0)
[2021-03-11 11:45] LABS: CHLORIDE 108 mmol/L (98-107); SODIUM 143 mmol/L (136-145)
[2021-03-11 11:48] LABS: ALBUMIN 2.6 g/dl (3.4-5.0); CALCIUM 8.5 mg/dL (8.5-10.1); CO2 29 mmol/L (21-32); GLUCOSE,RANDOM 109 mg/dL (74-106)
[2021-03-11 11:51] LABS: CREATININE 0.4 mg/dL (0.55-1.3); SGOT/AST 10 U/L (15-37); SGPT/ALT 11 U/L (13-61)
[2021-03-11 11:52] LABS: BILIRUBIN,TOTAL 0.4 mg/dL (0.2-1)
[2021-03-11 11:54] LABS: ALK PHOS 97 U/L (45-117)
[2021-03-11 11:58] LABS: ANION GAP 7 MMOL/L (8-16)
[2021-03-11] MEDS: LACTATED RINGERS SOLUTION 1,000 ML/1,000 ML INFUS.BAG IV SCH (12:01)
[2021-03-11] MEDS: MUPIROCIN 2% TOPICAL OINTMENT FOR DECOLONIZATION NS SCH (12:01)
[2021-03-11] MEDS: KCL 10 MEQ IVPB 10 MEQ/100 ML INFUS.BAG IVPB SCH ×3 (12:15→14:46)
[2021-03-11] MEDS: POTASSIUM CHLORIDE TABS 20 MEQ TABLET.ER (FP) PO SCH ×2 (12:15→21:45)
[2021-03-11] MEDS ORDERED: LACTATED RINGERS SOLUTION 1,000 ML/1,000 ML INFUS.BAG IV SCH (18:45)
[2021-03-11 21:06] LABS: CALCIUM 8.5 mg/dL (8.5-10.1)
[2021-03-11 21:07] LABS: ALBUMIN 2.3 g/dl (3.4-5.0)
[2021-03-11 21:10] LABS: CREATININE 0.3 mg/dL (0.55-1.3)
[2021-03-11 21:11] LABS: BILIRUBIN,TOTAL 0.4 mg/dL (0.2-1)
[2021-03-11 21:12] LABS: TOT PROT 5.6 g/dl (6.4-8.2)
[2021-03-11] MEDS ORDERED: CHLORHEXIDINE GLUCONATE 4% CLEANSER FOR DECOLONIZATION TP SCH (22:00)
[2021-03-11] MEDS ORDERED: MUPIROCIN 2% TOPICAL OINTMENT FOR DECOLONIZATION NS SCH (22:00)
[2021-03-12] MEDS ORDERED: ACETAMINOPHEN 325 MG TABLET (FP) PO PRN (00:16)
[2021-03-12] MEDS: LACTATED RINGERS SOLUTION 1,000 ML/1,000 ML INFUS.BAG IV SCH ×2 (00:30→17:53)
[2021-03-12] MEDS ORDERED: PIPERACILLIN/TAZOBACTAM 3.375 GM VIAL IVPB ONE ×2 (01:45→11:23)
[2021-03-12] MEDS ORDERED: DEXTROSE 5%-WATER - 50 ML IVPB ONE ×2 (01:45→11:23)
[2021-03-12] MEDS: PIPERACILLIN/TAZOB 3.375 GM 3.375 GM in DEXTROSE 5%-WATER - 50 ML IVPB SCH ×2 (02:40→11:27)
[2021-03-12] MEDS: HEPARIN NA (PORCINE) 5,000 UNITS/ML 1ML VIAL SQ SCH ×3 (06:26→23:09)
[2021-03-12 08:46] LABS: BASO % 0.4 % (0-2.0); EOS % 1.4 % (0-4.5); HEMATOCRIT 26.9 % (32.4-45.2); HEMOGLOBIN 8.9 GM/dL (10.7-15.3); LYMPH % 20.9 % (8-40); MCH 28.6 pg (25.7-33.7); MCHC 32.9 g/dl (32.0-36.0); NEUT % 72.3 % (42.8-82.8); PLATELET COUNT 231 K/MM3 (134-434); RDW 16.2 % (11.6-15.6); WHITE BLOOD COUNT 10.2 K/mm3 (4.0-10.0)
[2021-03-12 09:06] LABS: ALBUMIN 2.2 g/dl (3.4-5.0); CALCIUM 8.3 mg/dL (8.5-10.1)
[2021-03-12 09:07] LABS: BLOOD UREA NITROGEN 8.3 mg/dL (7-18); MAGNESIUM 1.7 mg/dL (1.8-2.4)
[2021-03-12 09:09] LABS: CREATININE 0.3 mg/dL (0.55-1.3); PHOSPHOROUS 2.7 mg/dL (2.5-4.9)
[2021-03-12 09:10] LABS: BILIRUBIN,TOTAL 0.4 mg/dL (0.2-1); TOT PROT 5.3 g/dl (6.4-8.2)
[2021-03-12] MEDS ORDERED: PT OWN MED DRAWER 7, Y5N ONE (11:22)
[2021-03-12] MEDS: AMINO ACIDS/PROTEIN HYDROLYS 30 ML LIQUID.PKT PO SCH ×2 (11:25→17:19)
[2021-03-12] MEDS: RAMIPRIL 2.5 MG CAPSULE PO SCH (11:26)
[2021-03-12] MEDS: PANTOPRAZOLE SODIUM 40 MG VIAL IVPUSH SCH (11:26)
[2021-03-12] MEDS: MULTIVITAMINS THER W-MINERALS COMBO TABLET (FP) PO SCH (11:27)
[2021-03-12] MEDS: AMOX TR/POT CLAV 500MG/125MG TABLETS (FP) PO SCH (17:18)
[2021-03-13] MEDS: HEPARIN NA (PORCINE) 5,000 UNITS/ML 1ML VIAL SQ SCH ×3 (05:32→21:36)
[2021-03-13] MEDS: AMINO ACIDS/PROTEIN HYDROLYS 30 ML LIQUID.PKT PO SCH ×2 (09:07→16:47)
[2021-03-13] MEDS: AMOX TR/POT CLAV 500MG/125MG TABLETS (FP) PO SCH ×2 (09:08→16:47)
[2021-03-13] MEDS: LACTATED RINGERS SOLUTION 1,000 ML/1,000 ML INFUS.BAG IV SCH (09:18)
[2021-03-13 09:31] LABS: BASO % 0.8 % (0-2.0); HEMATOCRIT 30.6 % (32.4-45.2); LYMPH % 21.3 % (8-40); MCH 28.7 pg (25.7-33.7); MCHC 32.8 g/dl (32.0-36.0); MEAN CELL VOLUME 87.6 fl (80-96); MEAN PLT VOLUME 10.4 fl (7.5-11.1); MONO % 4.8 % (3.8-10.2); NEUT % 71.1 % (42.8-82.8); PLATELET COUNT 253 K/MM3 (134-434); RDW 15.8 % (11.6-15.6); WHITE BLOOD COUNT 10.8 K/mm3 (4.0-10.0)
[2021-03-13] MEDS ORDERED: PT OWN MED DRAWER 7, Y5N ONE ×3 (09:36→13:45)
[2021-03-13] MEDS: RAMIPRIL 2.5 MG CAPSULE PO SCH (09:43)
[2021-03-13] MEDS: PANTOPRAZOLE SODIUM 40 MG VIAL IVPUSH SCH (09:44)
[2021-03-13] MEDS: MULTIVITAMINS THER W-MINERALS COMBO TABLET (FP) PO SCH (09:47)
[2021-03-13 09:50] LABS: ALBUMIN 2.5 g/dl (3.4-5.0); CALCIUM 8.8 mg/dL (8.5-10.1)
[2021-03-13 09:51] LABS: BLOOD UREA NITROGEN 6.8 mg/dL (7-18)
[2021-03-13 09:53] LABS: CREATININE 0.3 mg/dL (0.55-1.3)
[2021-03-13 09:55] LABS: BILIRUBIN,TOTAL 0.3 mg/dL (0.2-1); TOT PROT 6.3 g/dl (6.4-8.2)
[2021-03-14] MEDS: LACTATED RINGERS SOLUTION 1,000 ML/1,000 ML INFUS.BAG IV SCH (01:02)
[2021-03-14] MEDS: HEPARIN NA (PORCINE) 5,000 UNITS/ML 1ML VIAL SQ SCH ×3 (05:45→21:55)
[2021-03-14 09:04] LABS: BASO % 0.3 % (0-2.0); EOS % 1.9 % (0-4.5); HEMOGLOBIN 9.4 GM/dL (10.7-15.3); LYMPH % 22.4 % (8-40); MCH 29.2 pg (25.7-33.7); MCHC 33.7 g/dl (32.0-36.0); MEAN CELL VOLUME 86.5 fl (80-96); MEAN PLT VOLUME 9.4 fl (7.5-11.1); MONO % 4.5 % (3.8-10.2); NEUT % 70.9 % (42.8-82.8); PLATELET COUNT 235 K/MM3 (134-434); RBC 3.23 M/mm3 (3.60-5.2); RDW 16.1 % (11.6-15.6); WHITE BLOOD COUNT 10.1 K/mm3 (4.0-10.0)
[2021-03-14 09:27] LABS: CALCIUM 7.8 mg/dL (8.5-10.1)
[2021-03-14 09:28] LABS: ALBUMIN 2.2 g/dl (3.4-5.0); BLOOD UREA NITROGEN 8.7 mg/dL (7-18); MAGNESIUM 1.6 mg/dL (1.8-2.4)
[2021-03-14 09:31] LABS: CREATININE 0.3 mg/dL (0.55-1.3)
[2021-03-14 09:33] LABS: BILIRUBIN,TOTAL 0.4 mg/dL (0.2-1); TOT PROT 5.4 g/dl (6.4-8.2)
[2021-03-14] MEDS ORDERED: PT OWN MED DRAWER 7, Y5N ONE (09:45)
[2021-03-14] MEDS: AMOX TR/POT CLAV 500MG/125MG TABLETS (FP) PO SCH ×2 (09:52→17:35)
[2021-03-14] MEDS: MULTIVITAMINS THER W-MINERALS COMBO TABLET (FP) PO SCH (09:53)
[2021-03-14] MEDS: AMINO ACIDS/PROTEIN HYDROLYS 30 ML LIQUID.PKT PO SCH ×2 (09:54→17:35)
[2021-03-14] MEDS: RAMIPRIL 2.5 MG CAPSULE PO SCH (09:54)
[2021-03-14] MEDS: PANTOPRAZOLE SODIUM 40 MG VIAL IVPUSH SCH (09:55)
[2021-03-14] MEDS ORDERED: POTASSIUM CHLORIDE TABS 20 MEQ TABLET.ER (FP) PO ONE (12:26)
[2021-03-14] MEDS ORDERED: POTASSIUM CHLORIDE ORAL LIQUID 20 MEQ/15 ML PO ONE (21:00)
[2021-03-15] MEDS: HEPARIN NA (PORCINE) 5,000 UNITS/ML 1ML VIAL SQ SCH ×3 (05:51→21:11)
[2021-03-15 08:54] LABS: BASO % 0.7 % (0-2.0); EOS % 1.8 % (0-4.5); HEMATOCRIT 27.1 % (32.4-45.2); HEMOGLOBIN 9.1 GM/dL (10.7-15.3); LYMPH % 15.8 % (8-40); MCH 29.1 pg (25.7-33.7); MCHC 33.6 g/dl (32.0-36.0); MEAN CELL VOLUME 86.7 fl (80-96); MEAN PLT VOLUME 9.1 fl (7.5-11.1); MONO % 3.9 % (3.8-10.2); NEUT % 77.8 % (42.8-82.8); PLATELET COUNT 256 K/MM3 (134-434); RBC 3.13 M/mm3 (3.60-5.2); RDW 15.9 % (11.6-15.6); WHITE BLOOD COUNT 10.6 K/mm3 (4.0-10.0)
[2021-03-15 09:23] LABS: BLOOD UREA NITROGEN 9.5 mg/dL (7-18); CALCIUM 8.6 mg/dL (8.5-10.1)
[2021-03-15 09:24] LABS: ALBUMIN 2.3 g/dl (3.4-5.0); MAGNESIUM 1.7 mg/dL (1.8-2.4)
[2021-03-15 09:27] LABS: CREATININE 0.3 mg/dL (0.55-1.3)
[2021-03-15 09:28] LABS: BILIRUBIN,TOTAL 0.3 mg/dL (0.2-1)
[2021-03-15 09:29] LABS: TOT PROT 5.6 g/dl (6.4-8.2)
[2021-03-15] MEDS ORDERED: PT OWN MED DRAWER 7, Y5N ONE (09:47)
[2021-03-15] MEDS: AMOX TR/POT CLAV 500MG/125MG TABLETS (FP) PO SCH (09:56)
[2021-03-15] MEDS: MULTIVITAMINS THER W-MINERALS COMBO TABLET (FP) PO SCH (09:56)
[2021-03-15] MEDS: PANTOPRAZOLE SODIUM 40 MG VIAL IVPUSH SCH (09:57)
[2021-03-15] MEDS: RAMIPRIL 2.5 MG CAPSULE PO SCH (09:57)
[2021-03-15] MEDS: AMINO ACIDS/PROTEIN HYDROLYS 30 ML LIQUID.PKT PO SCH ×2 (09:57→18:39)
[2021-03-15] MEDS ORDERED: AMOX TR/POT CLAV 500MG/125MG TABLETS (FP) PO ONE (16:46)
[2021-03-15] MEDS: LACTATED RINGERS SOLUTION 1,000 ML/1,000 ML INFUS.BAG IV SCH (16:50)
[2021-03-16] MEDS: LACTATED RINGERS SOLUTION 1,000 ML/1,000 ML INFUS.BAG IV SCH ×2 (05:29→17:49)
[2021-03-16] MEDS: HEPARIN NA (PORCINE) 5,000 UNITS/ML 1ML VIAL SQ SCH ×3 (05:33→21:01)
[2021-03-16 09:26] LABS: BASO % 1.4 % (0-2.0); EOS % 2.5 % (0-4.5); HEMATOCRIT 32.6 % (32.4-45.2); HEMOGLOBIN 10.7 GM/dL (10.7-15.3); LYMPH % 29.3 % (8-40); MCHC 32.6 g/dl (32.0-36.0); MEAN CELL VOLUME 88.8 fl (80-96); MEAN PLT VOLUME 9.4 fl (7.5-11.1); MONO % 6.1 % (3.8-10.2); NEUT % 60.7 % (42.8-82.8); PLATELET COUNT 243 K/MM3 (134-434); RBC 3.68 M/mm3 (3.60-5.2); RDW 16.6 % (11.6-15.6)
[2021-03-16] MEDS ORDERED: PT OWN MED DRAWER 7, Y5N ONE (09:38)
[2021-03-16] MEDS: RAMIPRIL 2.5 MG CAPSULE PO SCH (09:49)
[2021-03-16] MEDS: AMINO ACIDS/PROTEIN HYDROLYS 30 ML LIQUID.PKT PO SCH ×2 (09:49→19:09)
[2021-03-16] MEDS: MULTIVITAMINS THER W-MINERALS COMBO TABLET (FP) PO SCH (09:49)
[2021-03-16] MEDS: PANTOPRAZOLE SODIUM 40 MG VIAL IVPUSH SCH (09:50)
[2021-03-16 09:53] LABS: ALBUMIN 2.6 g/dl (3.4-5.0); CALCIUM 8.9 mg/dL (8.5-10.1)
[2021-03-16 09:54] LABS: BLOOD UREA NITROGEN 9.5 mg/dL (7-18); MAGNESIUM 1.8 mg/dL (1.8-2.4)
[2021-03-16 09:57] LABS: CREATININE 0.2 mg/dL (0.55-1.3)
[2021-03-16 09:58] LABS: BILIRUBIN,TOTAL 0.8 mg/dL (0.2-1); TOT PROT 6.3 g/dl (6.4-8.2)
[2021-03-17] MEDS: HEPARIN NA (PORCINE) 5,000 UNITS/ML 1ML VIAL SQ SCH ×3 (05:34→21:48)
[2021-03-17] MEDS: LACTATED RINGERS SOLUTION 1,000 ML/1,000 ML INFUS.BAG IV SCH ×2 (05:34→17:35)
[2021-03-17] MEDS ORDERED: PT OWN MED DRAWER 7, Y5N ONE (09:10)
[2021-03-17 09:27] LABS: BASO % 1.1 % (0-2.0); EOS % 2.4 % (0-4.5); HEMATOCRIT 30.9 % (32.4-45.2); LYMPH % 25.2 % (8-40); MCH 28.7 pg (25.7-33.7); MCHC 32.4 g/dl (32.0-36.0); MEAN CELL VOLUME 88.7 fl (80-96); MEAN PLT VOLUME 9.1 fl (7.5-11.1); MONO % 4.7 % (3.8-10.2); NEUT % 66.6 % (42.8-82.8); PLATELET COUNT 247 K/MM3 (134-434); RBC 3.49 M/mm3 (3.60-5.2); RDW 16.5 % (11.6-15.6); WHITE BLOOD COUNT 8.6 K/mm3 (4.0-10.0)
[2021-03-17] MEDS: MULTIVITAMINS THER W-MINERALS COMBO TABLET (FP) PO SCH (09:37)
[2021-03-17] MEDS: PANTOPRAZOLE 40 MG TABLET PO SCH (09:37)
[2021-03-17] MEDS: AMINO ACIDS/PROTEIN HYDROLYS 30 ML LIQUID.PKT PO SCH ×2 (09:37→17:35)
[2021-03-17 09:55] LABS: ALBUMIN 2.5 g/dl (3.4-5.0); CALCIUM 8.8 mg/dL (8.5-10.1)
[2021-03-17 09:56] LABS: BLOOD UREA NITROGEN 11.3 mg/dL (7-18); MAGNESIUM 1.8 mg/dL (1.8-2.4)
[2021-03-17 09:59] LABS: CREATININE 0.3 mg/dL (0.55-1.3)
[2021-03-17 10:00] LABS: BILIRUBIN,TOTAL 0.5 mg/dL (0.2-1); TOT PROT 5.9 g/dl (6.4-8.2)
[2021-03-17] MEDS: RAMIPRIL 2.5 MG CAPSULE PO SCH (11:16)
[2021-03-18] MEDS: LACTATED RINGERS SOLUTION 1,000 ML/1,000 ML INFUS.BAG IV SCH (05:08)
[2021-03-18] MEDS: HEPARIN NA (PORCINE) 5,000 UNITS/ML 1ML VIAL SQ SCH ×2 (05:33→14:00)
[2021-03-18 08:57] LABS: BASO % 0.5 % (0-2.0); EOS % 2.4 % (0-4.5); HEMATOCRIT 28.5 % (32.4-45.2); HEMOGLOBIN 9.3 GM/dL (10.7-15.3); MCH 28.6 pg (25.7-33.7); MCHC 32.5 g/dl (32.0-36.0); MEAN CELL VOLUME 88.2 fl (80-96); MEAN PLT VOLUME 8.7 fl (7.5-11.1); MONO % 6.2 % (3.8-10.2); NEUT % 62.9 % (42.8-82.8); PLATELET COUNT 243 K/MM3 (134-434); RBC 3.23 M/mm3 (3.60-5.2); WHITE BLOOD COUNT 8.1 K/mm3 (4.0-10.0)
[2021-03-18 09:18] LABS: ALBUMIN 2.3 g/dl (3.4-5.0); BLOOD UREA NITROGEN 11.6 mg/dL (7-18); CALCIUM 8.6 mg/dL (8.5-10.1); MAGNESIUM 1.9 mg/dL (1.8-2.4)
[2021-03-18 09:21] LABS: CREATININE 0.3 mg/dL (0.55-1.3)
[2021-03-18 09:22] LABS: BILIRUBIN,TOTAL 0.4 mg/dL (0.2-1); TOT PROT 5.7 g/dl (6.4-8.2)
[2021-03-18] MEDS ORDERED: PT OWN MED DRAWER 7, Y5N ONE (10:43)
[2021-03-18] MEDS: RAMIPRIL 2.5 MG CAPSULE PO SCH (10:58)
[2021-03-18] MEDS: MULTIVITAMINS THER W-MINERALS COMBO TABLET (FP) PO SCH (10:58)
[2021-03-18] MEDS: AMINO ACIDS/PROTEIN HYDROLYS 30 ML LIQUID.PKT PO SCH (10:58)
[2021-03-18] MEDS: PANTOPRAZOLE 40 MG TABLET PO SCH (10:58)
[2021-03-18 15:47] VITALS: BP 107/84; PULSE 101; TEMP 99
== END 2021-03-18 15:12 | disposition home health service (06) | DRG 871 ==
LOC: JER 15:23 → JERBED 19:52 → JICU 03-09 03:00 → J5S 03-11 17:38
PROVIDERS: ADMIT Internal Medicine Pulmonary Disease; ATTEND Nurse Practitioner Acute Care
PROC: 05HN33Z Insertion of Infusion Device into Left Internal Jugular Vein, Percutaneous Approach (ICD-10-PCS; 2021-03-09)
PROC: 2W15X6Z Compression of Back using Pressure Dressing (ICD-10-PCS; principal; 2021-03-11)
DX: A41.9 Sepsis, unspecified organism (principal); R65.21 Severe sepsis with septic shock; G93.41 Metabolic encephalopathy; N39.0 Urinary tract infection, site not specified; T81.31XA Disruption of external operation (surgical) wound, not elsewhere classified, initial encounter; Y83.9 Surgical procedure, unspecified as the cause of abnormal reaction of the patient, or of later complication, without mention of misadventure at the time of the procedure; I25.10 Atherosclerotic heart disease of native coronary artery without angina pectoris; I10 Essential (primary) hypertension; E78.5 Hyperlipidemia, unspecified; D64.9 Anemia, unspecified; D72.829 Elevated white blood cell count, unspecified; E87.6 Hypokalemia
CPT/HCPCS: 36415; 70450-TC; 71045-TC-FY; 80053; 81003; 82550; 82962; 83605; 83735; 84100; 84484; 85025; 85027; 85610; 85730; 87040; 87070; 87086; 87205; 87899; 93005; 93010; 97162-GP; 99285-25; C9803; J0131; J1644; U0003; U0005

== ENCOUNTER 2022-02-10 18:04 | Inpatient (IN) | payer OTHER ==
[2022-02-10] MEDS ORDERED: ALBUTEROL SO4 2.5/IPRATROPIUM 0.5 INH SOL 3 ML VIAL.NEB. NEB ONE ×2 (19:58→21:04)
[2022-02-10] MEDS ORDERED: SODIUM CHLORIDE 0.9% 1000 ML INFUS.BAG IV ONE (20:00)
[2022-02-10 20:47] LABS: BASO % 0.5 % (0-2.0); EOS % 0.1 % (0-4.5); HEMATOCRIT 38.1 % (32.4-45.2); HEMOGLOBIN 12.8 GM/dL (10.7-15.3); LYMPH % 10.3 % (8-40); MCH 29.5 pg (25.7-33.7); MCHC 33.4 g/dl (32.0-36.0); MEAN CELL VOLUME 88.2 fl (80-96); MEAN PLT VOLUME 9.5 fl (7.5-11.1); MONO % 3.5 % (3.8-10.2); NEUT % 85.6 % (42.8-82.8); PLATELET COUNT 142 10^3/uL (134-434); RBC 4.32 M/mm3 (3.60-5.2); RDW 14.4 % (11.6-15.6); WHITE BLOOD COUNT 10.1 K/mm3 (4.0-10.0)
[2022-02-10 21:05] LABS: CALCIUM 8.9 mg/dL (8.5-10.1)
[2022-02-10 21:06] LABS: ALBUMIN 3.2 g/dl (3.4-5.0); BLOOD UREA NITROGEN 24.1 mg/dL (7-18)
[2022-02-10 21:10] LABS: CREATININE 0.5 mg/dL (0.55-1.3)
[2022-02-10 21:11] LABS: BILIRUBIN,TOTAL 0.3 mg/dL (0.2-1); TOT PROT 6.8 g/dl (6.4-8.2)
[2022-02-10] MEDS ORDERED: AZITHROMYCIN IVPB 500 MG in DEXTROSE 5%-WATER - 250 ML IVPB ONE (21:51)
[2022-02-10] MEDS ORDERED: CEFTRIAXONE 1 GM in DEXTROSE 5%-WATER - 100 ML IVPB ONE (21:52)
[2022-02-10] MEDS ORDERED: CEFTRIAXONE 1 GM/50 ML BAG ONE (23:01)
[2022-02-10] MEDS ORDERED: AZITHROMYCIN IVPB 500 MG/250 ML BAG IVPB ONE (23:01)
[2022-02-11] MEDS ORDERED: ALBUTEROL SO4 2.5/IPRATROPIUM 0.5 INH SOL 3 ML VIAL.NEB. NEB PRN (00:13)
[2022-02-11] MEDS: guaiFENesin 600 MG TABLET.ER (FP) PO SCH ×3 (09:20→21:33)
[2022-02-11] MEDS ORDERED: ACETAMINOPHEN 325 MG TABLET (FP) PO PRN (10:08)
[2022-02-11] MEDS: ENOXAPARIN NA (PORCINE) 40 MG/0.4 ML DISP.SYRIN SQ SCH (11:05)
[2022-02-11 12:52] LABS: BASO % 0.5 % (0-2.0); EOS % 0.1 % (0-4.5); HEMATOCRIT 34.1 % (32.4-45.2); HEMOGLOBIN 11.6 GM/dL (10.7-15.3); LYMPH % 17.3 % (8-40); MCH 29.6 pg (25.7-33.7); MCHC 33.9 g/dl (32.0-36.0); MEAN CELL VOLUME 87.3 fl (80-96); MEAN PLT VOLUME 9.4 fl (7.5-11.1); MONO % 4.2 % (3.8-10.2); NEUT % 77.9 % (42.8-82.8); PLATELET COUNT 136 10^3/uL (134-434); RBC 3.91 M/mm3 (3.60-5.2); RDW 14.3 % (11.6-15.6); WHITE BLOOD COUNT 8.6 K/mm3 (4.0-10.0)
[2022-02-11] MEDS: ACETAMINOPHEN 325 MG TABLET (FP) PO PRN ×2 (13:03→20:02)
[2022-02-11 13:13] LABS: CALCIUM 8.4 mg/dL (8.5-10.1)
[2022-02-11 13:14] LABS: MAGNESIUM 1.8 mg/dL (1.8-2.4)
[2022-02-11 13:16] LABS: ALBUMIN 2.8 g/dl (3.4-5.0); BLOOD UREA NITROGEN 21.5 mg/dL (7-18)
[2022-02-11 13:20] LABS: CREATININE 0.4 mg/dL (0.55-1.3); TOT PROT 6.3 g/dl (6.4-8.2)
[2022-02-11 13:24] LABS: BILIRUBIN,TOTAL 0.4 mg/dL (0.2-1)
[2022-02-11 14:09] LABS: SARS-CoV-2 NAA Not Detected (Not Detected)
[2022-02-11 14:34] LABS: EPI CELLS 11 /uL (0-25.1); HYALINE CASTS 1 /uL (0-3.1); URINE APPEARANCE CLOUDY; URINE BACTERIA 21 /uL (0-1359); URINE BILIRUBIN NEGATIVE (NEGATIVE); URINE COLOR YELLOW; URINE GLUCOSE (UA) NEGATIVE (NEGATIVE); URINE KETONE TRACE (NEGATIVE); URINE LEUK ESTERASE NEGATIVE (NEGATIVE); URINE NITRITE NEGATIVE (NEGATIVE); URINE PROTEIN 1+ (NEGATIVE); URINE RBC 58 /uL (0-23.9); URINE UROBILINOGEN 0.2 mg/dL (0.2-1.0); URINE WBC 20 /uL (0-25.8)
[2022-02-11] MEDS ORDERED: DEXTROSE 5%-WATER - 50 ML IVPB ONE (21:29)
[2022-02-11] MEDS ORDERED: cefTRIAXone SODIUM 1 GM VIAL ONE (21:29)
[2022-02-11] MEDS: AZITHROMYCIN 250 MG TABLET PO SCH (21:33)
[2022-02-11] MEDS: traZODone HCL 50 MG TABLET (FP) PO SCH (21:33)
[2022-02-11] MEDS: GABAPENTIN 300 MG CAPSULE PO SCH (21:33)
[2022-02-11] MEDS: CEFTRIAXONE 1 GM in DEXTROSE 5%-WATER - 50 ML IVPB SCH (21:34)
[2022-02-12] MEDS: GABAPENTIN 300 MG CAPSULE PO SCH ×3 (05:51→21:56)
[2022-02-12 09:21] LABS: BASO % 0.4 % (0-2.0); EOS % 1.2 % (0-4.5); HEMATOCRIT 35.8 % (32.4-45.2); LYMPH % 20.8 % (8-40); MCH 29.5 pg (25.7-33.7); MCHC 33.5 g/dl (32.0-36.0); MEAN CELL VOLUME 88.1 fl (80-96); MEAN PLT VOLUME 9.6 fl (7.5-11.1); MONO % 3.3 % (3.8-10.2); NEUT % 74.3 % (42.8-82.8); PLATELET COUNT 146 10^3/uL (134-434); RBC 4.06 M/mm3 (3.60-5.2); RDW 14.2 % (11.6-15.6); WHITE BLOOD COUNT 6.1 K/mm3 (4.0-10.0)
[2022-02-12 09:28] LABS: CHLORIDE 103 mmol/L (98-107); SODIUM 142 mmol/L (136-145)
[2022-02-12 09:29] LABS: CALCIUM 8.7 mg/dL (8.5-10.1)
[2022-02-12 09:30] LABS: CO2 33 mmol/L (21-32); GLUCOSE,RANDOM 95 mg/dL (74-106)
[2022-02-12 09:33] LABS: CREATININE 0.4 mg/dL (0.55-1.3)
[2022-02-12 09:53] LABS: ANION GAP 6 MMOL/L (8-16)
[2022-02-12] MEDS: ESCITALOPRAM OXALATE 10 MG TABLET PO SCH (10:32)
[2022-02-12] MEDS: PANTOPRAZOLE 20 MG TABLET PO SCH (10:33)
[2022-02-12] MEDS: SOTALOL HCL 80 MG TABLET (FP) PO SCH (10:33)
[2022-02-12] MEDS: guaiFENesin 600 MG TABLET.ER (FP) PO SCH ×2 (10:33→21:56)
[2022-02-12] MEDS: ENOXAPARIN NA (PORCINE) 40 MG/0.4 ML DISP.SYRIN SQ SCH (10:39)
[2022-02-12] MEDS: POTASSIUM CHLORIDE TABS 20 MEQ TABLET.ER (FP) PO SCH ×2 (11:28→21:56)
[2022-02-12] MEDS: ACETAMINOPHEN 325 MG TABLET (FP) PO PRN (15:19)
[2022-02-12] MEDS ORDERED: DEXTROSE 5%-WATER - 50 ML IVPB ONE (21:22)
[2022-02-12] MEDS ORDERED: cefTRIAXone SODIUM 1 GM VIAL ONE (21:22)
[2022-02-12] MEDS: CEFTRIAXONE 1 GM in DEXTROSE 5%-WATER - 50 ML IVPB SCH (21:56)
[2022-02-12] MEDS: AZITHROMYCIN 250 MG TABLET PO SCH (21:56)
[2022-02-12] MEDS: traZODone HCL 50 MG TABLET (FP) PO SCH (21:56)
[2022-02-13] MEDS ORDERED: MAG HYDROX/AL HYDROX/SIMETH 30 ML UNIT-DOSE CUP PO ONE (05:43)
[2022-02-13] MEDS: GABAPENTIN 300 MG CAPSULE PO SCH ×3 (06:23→21:46)
[2022-02-13] MEDS: SOTALOL HCL 80 MG TABLET (FP) PO SCH (10:02)
[2022-02-13] MEDS: ENOXAPARIN NA (PORCINE) 40 MG/0.4 ML DISP.SYRIN SQ SCH (10:03)
[2022-02-13] MEDS: ESCITALOPRAM OXALATE 10 MG TABLET PO SCH (10:03)
[2022-02-13] MEDS: guaiFENesin 600 MG TABLET.ER (FP) PO SCH ×2 (10:04→21:46)
[2022-02-13] MEDS: PANTOPRAZOLE 20 MG TABLET PO SCH (10:05)
[2022-02-13 11:23] LABS: BASO % 0.2 % (0-2.0); EOS % 0.5 % (0-4.5); HEMATOCRIT 33.6 % (32.4-45.2); HEMOGLOBIN 11.3 GM/dL (10.7-15.3); LYMPH % 14.4 % (8-40); MCH 29.3 pg (25.7-33.7); MCHC 33.6 g/dl (32.0-36.0); MEAN CELL VOLUME 87.2 fl (80-96); MEAN PLT VOLUME 9.6 fl (7.5-11.1); MONO % 6.7 % (3.8-10.2); NEUT % 78.2 % (42.8-82.8); PLATELET COUNT 130 10^3/uL (134-434); RBC 3.86 M/mm3 (3.60-5.2); RDW 14.2 % (11.6-15.6); WHITE BLOOD COUNT 5.5 K/mm3 (4.0-10.0)
[2022-02-13 11:39] LABS: CALCIUM 8.3 mg/dL (8.5-10.1)
[2022-02-13 11:40] LABS: BLOOD UREA NITROGEN 15.1 mg/dL (7-18)
[2022-02-13 11:43] LABS: CREATININE 0.3 mg/dL (0.55-1.3)
[2022-02-13] MEDS ORDERED: predniSONE 20 MG TABLET (UD) PO ONE (12:05)
[2022-02-13] MEDS ORDERED: cefTRIAXone SODIUM 1 GM VIAL ONE (21:39)
[2022-02-13] MEDS ORDERED: DEXTROSE 5%-WATER - 50 ML IVPB ONE (21:39)
[2022-02-13] MEDS: AZITHROMYCIN 250 MG TABLET PO SCH (21:46)
[2022-02-13] MEDS: CEFTRIAXONE 1 GM in DEXTROSE 5%-WATER - 50 ML IVPB SCH (21:46)
[2022-02-13] MEDS: traZODone HCL 50 MG TABLET (FP) PO SCH (21:46)
[2022-02-14] MEDS: GABAPENTIN 300 MG CAPSULE PO SCH ×3 (06:31→22:33)
[2022-02-14] MEDS ORDERED: predniSONE 20 MG TABLET (UD) PO ONE ×2 (07:49→10:00)
[2022-02-14] MEDS: guaiFENesin 600 MG TABLET.ER (FP) PO SCH ×2 (09:27→22:33)
[2022-02-14] MEDS: ESCITALOPRAM OXALATE 10 MG TABLET PO SCH (09:27)
[2022-02-14] MEDS: ENOXAPARIN NA (PORCINE) 40 MG/0.4 ML DISP.SYRIN SQ SCH (09:27)
[2022-02-14] MEDS: PANTOPRAZOLE 20 MG TABLET PO SCH (09:28)
[2022-02-14] MEDS: SOTALOL HCL 80 MG TABLET (FP) PO SCH (09:28)
[2022-02-14 09:32] LABS: BASO % 0.5 % (0-2.0); EOS % 0.1 % (0-4.5); HEMATOCRIT 34.8 % (32.4-45.2); HEMOGLOBIN 11.6 GM/dL (10.7-15.3); LYMPH % 37.2 % (8-40); MCH 29.1 pg (25.7-33.7); MCHC 33.4 g/dl (32.0-36.0); MEAN CELL VOLUME 87.1 fl (80-96); MEAN PLT VOLUME 9.2 fl (7.5-11.1); MONO % 9.2 % (3.8-10.2); PLATELET COUNT 132 10^3/uL (134-434); WHITE BLOOD COUNT 3.6 K/mm3 (4.0-10.0)
[2022-02-14] MEDS ORDERED: POLYETHYLENE GLYCOL 3350 119 GM BTL PO SCH (10:00)
[2022-02-14] MEDS: POLYETHYLENE GLYCOL (HEALTHYLAX) 3350 17 GM PACKET PO SCH ×2 (10:17→22:33)
[2022-02-14] MEDS ORDERED: ALBUTEROL SO4 0.083% IH SOL 2.5 MG/3 ML VIAL.NEB. NEB PRN (11:08)
[2022-02-14] MEDS: methylPREDNISolone NA SUCC 40 MG/1 ML VIAL IVPUSH SCH ×2 (11:13→17:22)
[2022-02-14] MEDS: ALBUTEROL SO4 2.5/IPRATROPIUM 0.5 INH SOL 3 ML VIAL.NEB. NEB SCH ×3 (11:40→20:00)
[2022-02-14] MEDS: ACETAMINOPHEN 325 MG TABLET (FP) PO PRN (12:04)
[2022-02-14 12:30] LABS: CALCIUM 8.7 mg/dL (8.5-10.1)
[2022-02-14 12:31] LABS: BLOOD UREA NITROGEN 18.2 mg/dL (7-18); MAGNESIUM 2.2 mg/dL (1.8-2.4)
[2022-02-14 12:34] LABS: CREATININE 0.4 mg/dL (0.55-1.3); PHOSPHOROUS 3.3 mg/dL (2.5-4.9)
[2022-02-14] MEDS: PORTA CATH FLUSH 10 ML IVPUSH PRN (15:02)
[2022-02-14 22:22] VITALS: BMI 18.3
[2022-02-14] MEDS ORDERED: cefTRIAXone SODIUM 1 GM VIAL ONE (22:31)
[2022-02-14] MEDS ORDERED: DEXTROSE 5%-WATER - 50 ML IVPB ONE (22:31)
[2022-02-14] MEDS: CEFTRIAXONE 1 GM in DEXTROSE 5%-WATER - 50 ML IVPB SCH (22:33)
[2022-02-14] MEDS: AZITHROMYCIN 250 MG TABLET PO SCH (22:33)
[2022-02-14] MEDS: traZODone HCL 50 MG TABLET (FP) PO SCH (22:33)
[2022-02-15] MEDS: methylPREDNISolone NA SUCC 40 MG/1 ML VIAL IVPUSH SCH ×2 (03:09→09:34)
[2022-02-15] MEDS: GABAPENTIN 300 MG CAPSULE PO SCH ×3 (06:26→21:19)
[2022-02-15] MEDS: ACETAMINOPHEN 325 MG TABLET (FP) PO PRN (07:28)
[2022-02-15] MEDS: ALBUTEROL SO4 2.5/IPRATROPIUM 0.5 INH SOL 3 ML VIAL.NEB. NEB SCH ×4 (07:40→20:07)
[2022-02-15 09:13] LABS: BASO % 0.1 % (0-2.0); HEMATOCRIT 36.9 % (32.4-45.2); HEMOGLOBIN 12.1 GM/dL (10.7-15.3); LYMPH % 21.4 % (8-40); MCH 28.9 pg (25.7-33.7); MCHC 32.9 g/dl (32.0-36.0); MEAN CELL VOLUME 87.9 fl (80-96); MEAN PLT VOLUME 9.8 fl (7.5-11.1); MONO % 4.2 % (3.8-10.2); NEUT % 74.3 % (42.8-82.8); PLATELET COUNT 184 10^3/uL (134-434); RDW 13.9 % (11.6-15.6); WHITE BLOOD COUNT 4.5 K/mm3 (4.0-10.0)
[2022-02-15] MEDS: ESCITALOPRAM OXALATE 10 MG TABLET PO SCH (09:33)
[2022-02-15] MEDS: SOTALOL HCL 80 MG TABLET (FP) PO SCH (09:33)
[2022-02-15] MEDS: POLYETHYLENE GLYCOL (HEALTHYLAX) 3350 17 GM PACKET PO SCH ×3 (09:33→21:22)
[2022-02-15] MEDS: ENOXAPARIN NA (PORCINE) 40 MG/0.4 ML DISP.SYRIN SQ SCH (09:34)
[2022-02-15] MEDS: guaiFENesin 600 MG TABLET.ER (FP) PO SCH ×2 (09:34→21:19)
[2022-02-15] MEDS: PANTOPRAZOLE 20 MG TABLET PO SCH (09:34)
[2022-02-15 09:40] LABS: BLOOD UREA NITROGEN 17.5 mg/dL (7-18); CALCIUM 8.8 mg/dL (8.5-10.1); MAGNESIUM 2.2 mg/dL (1.8-2.4)
[2022-02-15 09:41] LABS: PHOSPHOROUS 3.3 mg/dL (2.5-4.9)
[2022-02-15 09:42] LABS: CREATININE 0.5 mg/dL (0.55-1.3)
[2022-02-15 09:43] LABS: BILIRUBIN,TOTAL 0.2 mg/dL (0.2-1); TOT PROT 6.9 g/dl (6.4-8.2)
[2022-02-15] MEDS: PORTA CATH FLUSH 10 ML IVPUSH PRN (18:36)
[2022-02-15] MEDS ORDERED: DEXTROSE 5%-WATER - 50 ML IVPB ONE (21:17)
[2022-02-15] MEDS ORDERED: cefTRIAXone SODIUM 1 GM VIAL ONE (21:17)
[2022-02-15] MEDS: AZITHROMYCIN 250 MG TABLET PO SCH (21:19)
[2022-02-15] MEDS: CEFTRIAXONE 1 GM in DEXTROSE 5%-WATER - 50 ML IVPB SCH (21:19)
[2022-02-15] MEDS: traZODone HCL 50 MG TABLET (FP) PO SCH (21:19)
[2022-02-16] MEDS: ACETAMINOPHEN 325 MG TABLET (FP) PO PRN (03:16)
[2022-02-16] MEDS: GABAPENTIN 300 MG CAPSULE PO SCH ×3 (06:27→22:46)
[2022-02-16] MEDS: ALBUTEROL SO4 2.5/IPRATROPIUM 0.5 INH SOL 3 ML VIAL.NEB. NEB SCH ×4 (08:35→19:26)
[2022-02-16] MEDS: guaiFENesin 600 MG TABLET.ER (FP) PO SCH ×2 (09:09→22:46)
[2022-02-16] MEDS: POLYETHYLENE GLYCOL (HEALTHYLAX) 3350 17 GM PACKET PO SCH ×2 (09:09→22:46)
[2022-02-16] MEDS: PANTOPRAZOLE 20 MG TABLET PO SCH (09:09)
[2022-02-16] MEDS: ENOXAPARIN NA (PORCINE) 40 MG/0.4 ML DISP.SYRIN SQ SCH (09:10)
[2022-02-16] MEDS: ESCITALOPRAM OXALATE 10 MG TABLET PO SCH (09:10)
[2022-02-16] MEDS: SOTALOL HCL 80 MG TABLET (FP) PO SCH (09:11)
[2022-02-16] MEDS: methylPREDNISolone NA SUCC 40 MG/1 ML VIAL IVPUSH SCH (09:11)
[2022-02-16 09:17] LABS: ALBUMIN 2.6 g/dl (3.4-5.0); BILIRUBIN,TOTAL 0.1 mg/dL (0.2-1); BLOOD UREA NITROGEN 18.7 mg/dL (7-18); CALCIUM 8.5 mg/dL (8.5-10.1); CREATININE 0.4 mg/dL (0.55-1.3); TOT PROT 5.8 g/dl (6.4-8.2)
[2022-02-16 11:57] LABS: HEMATOCRIT 34.9 % (32.4-45.2); HEMOGLOBIN 11.4 GM/dL (10.7-15.3); MCH 28.7 pg (25.7-33.7); MCHC 32.8 g/dl (32.0-36.0); MEAN CELL VOLUME 87.4 fl (80-96); MEAN PLT VOLUME 9.7 fl (7.5-11.1); PLATELET COUNT 177 10^3/uL (134-434); RBC 3.99 M/mm3 (3.60-5.2); RDW 14.3 % (11.6-15.6); WHITE BLOOD COUNT 7.4 K/mm3 (4.0-10.0)
[2022-02-16 13:46] LABS: ANISOCYTOSIS 0; MACROCYTOSIS 0; PLATELET ESTIMATE NORMAL
[2022-02-16] MEDS: PORTA CATH FLUSH 10 ML IVPUSH PRN (17:36)
[2022-02-16] MEDS ORDERED: DEXTROSE 5%-WATER - 50 ML IVPB ONE (21:45)
[2022-02-16] MEDS ORDERED: cefTRIAXone SODIUM 1 GM VIAL ONE (21:45)
[2022-02-16] MEDS: CEFTRIAXONE 1 GM in DEXTROSE 5%-WATER - 50 ML IVPB SCH (22:46)
[2022-02-16] MEDS: AZITHROMYCIN 250 MG TABLET PO SCH (22:46)
[2022-02-16] MEDS: traZODone HCL 50 MG TABLET (FP) PO SCH (22:46)
[2022-02-17] MEDS: GABAPENTIN 300 MG CAPSULE PO SCH ×3 (05:35→21:14)
[2022-02-17] MEDS: ALBUTEROL SO4 2.5/IPRATROPIUM 0.5 INH SOL 3 ML VIAL.NEB. NEB SCH ×4 (07:40→20:20)
[2022-02-17] MEDS: PANTOPRAZOLE 20 MG TABLET PO SCH (09:07)
[2022-02-17] MEDS: SOTALOL HCL 80 MG TABLET (FP) PO SCH (09:07)
[2022-02-17] MEDS: guaiFENesin 600 MG TABLET.ER (FP) PO SCH ×2 (09:07→21:14)
[2022-02-17] MEDS: ESCITALOPRAM OXALATE 10 MG TABLET PO SCH (09:08)
[2022-02-17] MEDS: POLYETHYLENE GLYCOL (HEALTHYLAX) 3350 17 GM PACKET PO SCH ×2 (09:08→21:15)
[2022-02-17] MEDS: ENOXAPARIN NA (PORCINE) 40 MG/0.4 ML DISP.SYRIN SQ SCH (09:08)
[2022-02-17] MEDS: methylPREDNISolone NA SUCC 40 MG/1 ML VIAL IVPUSH SCH (09:41)
[2022-02-17 10:43] LABS: BASO % 0.3 % (0-2.0); EOS % 0.1 % (0-4.5); HEMATOCRIT 34.7 % (32.4-45.2); HEMOGLOBIN 11.7 GM/dL (10.7-15.3); MCH 29.4 pg (25.7-33.7); MCHC 33.7 g/dl (32.0-36.0); MEAN CELL VOLUME 87.2 fl (80-96); MEAN PLT VOLUME 8.9 fl (7.5-11.1); MONO % 6.3 % (3.8-10.2); NEUT % 61.3 % (42.8-82.8); PLATELET COUNT 192 10^3/uL (134-434); RBC 3.97 M/mm3 (3.60-5.2); RDW 14.3 % (11.6-15.6); WHITE BLOOD COUNT 6.9 K/mm3 (4.0-10.0)
[2022-02-17 11:46] LABS: CALCIUM 8.8 mg/dL (8.5-10.1)
[2022-02-17 11:47] LABS: ALBUMIN 2.8 g/dl (3.4-5.0); BLOOD UREA NITROGEN 22.3 mg/dL (7-18)
[2022-02-17 11:49] LABS: CREATININE 0.4 mg/dL (0.55-1.3)
[2022-02-17 11:51] LABS: BILIRUBIN,TOTAL 0.3 mg/dL (0.2-1); TOT PROT 6.1 g/dl (6.4-8.2)
[2022-02-17] MEDS ORDERED: DEXTROSE 5%-WATER - 50 ML IVPB ONE (21:09)
[2022-02-17] MEDS ORDERED: cefTRIAXone SODIUM 1 GM VIAL ONE (21:09)
[2022-02-17] MEDS: CEFTRIAXONE 1 GM in DEXTROSE 5%-WATER - 50 ML IVPB SCH (21:14)
[2022-02-17] MEDS: traZODone HCL 50 MG TABLET (FP) PO SCH (21:14)
[2022-02-17] MEDS: AZITHROMYCIN 250 MG TABLET PO SCH (21:14)
[2022-02-18] MEDS: GABAPENTIN 300 MG CAPSULE PO SCH ×4 (06:24→22:14)
[2022-02-18] MEDS: ALBUTEROL SO4 2.5/IPRATROPIUM 0.5 INH SOL 3 ML VIAL.NEB. NEB SCH ×4 (07:43→20:45)
[2022-02-18] MEDS: guaiFENesin 600 MG TABLET.ER (FP) PO SCH ×2 (10:29→22:14)
[2022-02-18] MEDS: POLYETHYLENE GLYCOL (HEALTHYLAX) 3350 17 GM PACKET PO SCH ×2 (10:29→22:14)
[2022-02-18] MEDS: PANTOPRAZOLE 20 MG TABLET PO SCH (10:29)
[2022-02-18] MEDS: ESCITALOPRAM OXALATE 10 MG TABLET PO SCH (10:29)
[2022-02-18] MEDS: predniSONE 20 MG TABLET (UD) PO SCH (10:29)
[2022-02-18] MEDS: ENOXAPARIN NA (PORCINE) 40 MG/0.4 ML DISP.SYRIN SQ SCH (10:30)
[2022-02-18] MEDS: SOTALOL HCL 80 MG TABLET (FP) PO SCH (10:30)
[2022-02-18 11:36] LABS: HEMATOCRIT 33.2 % (32.4-45.2); HEMOGLOBIN 11.2 GM/dL (10.7-15.3); MCH 29.2 pg (25.7-33.7); MCHC 33.7 g/dl (32.0-36.0); MEAN CELL VOLUME 86.7 fl (80-96); MEAN PLT VOLUME 8.8 fl (7.5-11.1); PLATELET COUNT 213 10^3/uL (134-434); RBC 3.83 M/mm3 (3.60-5.2); RDW 14.1 % (11.6-15.6); WHITE BLOOD COUNT 11.9 K/mm3 (4.0-10.0)
[2022-02-18 11:50] LABS: ALBUMIN 2.7 g/dl (3.4-5.0)
[2022-02-18 11:51] LABS: BLOOD UREA NITROGEN 21.3 mg/dL (7-18); CALCIUM 8.6 mg/dL (8.5-10.1)
[2022-02-18 11:53] LABS: CREATININE 0.4 mg/dL (0.55-1.3)
[2022-02-18 11:55] LABS: BILIRUBIN,TOTAL 0.2 mg/dL (0.2-1); TOT PROT 5.9 g/dl (6.4-8.2)
[2022-02-18 12:20] LABS: ANISOCYTOSIS 0; HELMET CELLS 0; HOWELL-JOLLY BODIES 0; MACROCYTOSIS 0; OVALOCYTE 0; ROULEAU 0; SICKELED CELLS 0; TARGET CELLS 0; TEAR DROP CELLS 0; TOXIC GRANULATION 0
[2022-02-18] MEDS: ACETAMINOPHEN 325 MG TABLET (FP) PO PRN (12:46)
[2022-02-18] MEDS: traZODone HCL 50 MG TABLET (FP) PO SCH (22:14)
[2022-02-19] MEDS: GABAPENTIN 300 MG CAPSULE PO SCH ×3 (06:06→21:40)
[2022-02-19] MEDS: ALBUTEROL SO4 2.5/IPRATROPIUM 0.5 INH SOL 3 ML VIAL.NEB. NEB SCH ×4 (08:08→20:15)
[2022-02-19 08:44] LABS: HEMATOCRIT 33.6 % (32.4-45.2); HEMOGLOBIN 11.3 GM/dL (10.7-15.3); MCH 29.1 pg (25.7-33.7); MCHC 33.5 g/dl (32.0-36.0); MEAN CELL VOLUME 86.8 fl (80-96); MEAN PLT VOLUME 8.5 fl (7.5-11.1); PLATELET COUNT 235 10^3/uL (134-434); RBC 3.88 M/mm3 (3.60-5.2); WHITE BLOOD COUNT 11.9 K/mm3 (4.0-10.0)
[2022-02-19] MEDS: ESCITALOPRAM OXALATE 10 MG TABLET PO SCH (09:01)
[2022-02-19] MEDS: ENOXAPARIN NA (PORCINE) 40 MG/0.4 ML DISP.SYRIN SQ SCH (09:01)
[2022-02-19] MEDS: POLYETHYLENE GLYCOL (HEALTHYLAX) 3350 17 GM PACKET PO SCH ×2 (09:02→21:40)
[2022-02-19] MEDS: ACETAMINOPHEN 325 MG TABLET (FP) PO PRN ×2 (09:02→17:10)
[2022-02-19] MEDS: guaiFENesin 600 MG TABLET.ER (FP) PO SCH ×2 (09:02→21:40)
[2022-02-19] MEDS: SOTALOL HCL 80 MG TABLET (FP) PO SCH (09:02)
[2022-02-19] MEDS: predniSONE 20 MG TABLET (UD) PO SCH (09:02)
[2022-02-19] MEDS: PANTOPRAZOLE 20 MG TABLET PO SCH (09:02)
[2022-02-19 09:21] LABS: CALCIUM 8.8 mg/dL (8.5-10.1)
[2022-02-19 09:22] LABS: ALBUMIN 2.7 g/dl (3.4-5.0); ANISOCYTOSIS 1+; BLOOD UREA NITROGEN 17.9 mg/dL (7-18)
[2022-02-19 09:26] LABS: BILIRUBIN,TOTAL 0.3 mg/dL (0.2-1)
[2022-02-19 09:28] LABS: CREATININE 0.4 mg/dL (0.55-1.3)
[2022-02-19] MEDS: traZODone HCL 50 MG TABLET (FP) PO SCH (21:40)
[2022-02-20] MEDS: GABAPENTIN 300 MG CAPSULE PO SCH ×3 (06:06→21:55)
[2022-02-20] MEDS: ALBUTEROL SO4 2.5/IPRATROPIUM 0.5 INH SOL 3 ML VIAL.NEB. NEB SCH ×3 (09:00→20:00)
[2022-02-20 09:24] LABS: BASO % 0.3 % (0-2.0); EOS % 0.8 % (0-4.5); HEMATOCRIT 33.7 % (32.4-45.2); LYMPH % 21.3 % (8-40); MCH 28.8 pg (25.7-33.7); MCHC 32.8 g/dl (32.0-36.0); MEAN CELL VOLUME 87.8 fl (80-96); MEAN PLT VOLUME 8.7 fl (7.5-11.1); MONO % 4.6 % (3.8-10.2); PLATELET COUNT 249 10^3/uL (134-434); RBC 3.84 M/mm3 (3.60-5.2); WHITE BLOOD COUNT 11.7 K/mm3 (4.0-10.0)
[2022-02-20 09:33] LABS: CALCIUM 8.4 mg/dL (8.5-10.1)
[2022-02-20 09:34] LABS: ALBUMIN 2.6 g/dl (3.4-5.0); MAGNESIUM 2.2 mg/dL (1.8-2.4)
[2022-02-20 09:37] LABS: CREATININE 0.4 mg/dL (0.55-1.3); PHOSPHOROUS 3.1 mg/dL (2.5-4.9)
[2022-02-20 09:38] LABS: BILIRUBIN,TOTAL 0.2 mg/dL (0.2-1); TOT PROT 5.6 g/dl (6.4-8.2)
[2022-02-20] MEDS: PORTA CATH FLUSH 10 ML IVPUSH PRN (10:00)
[2022-02-20] MEDS: PANTOPRAZOLE 20 MG TABLET PO SCH (10:49)
[2022-02-20] MEDS: ENOXAPARIN NA (PORCINE) 40 MG/0.4 ML DISP.SYRIN SQ SCH (10:50)
[2022-02-20] MEDS: guaiFENesin 600 MG TABLET.ER (FP) PO SCH ×2 (10:50→21:55)
[2022-02-20] MEDS: ESCITALOPRAM OXALATE 10 MG TABLET PO SCH (10:50)
[2022-02-20] MEDS: POLYETHYLENE GLYCOL (HEALTHYLAX) 3350 17 GM PACKET PO SCH ×2 (10:50→21:55)
[2022-02-20] MEDS: SOTALOL HCL 80 MG TABLET (FP) PO SCH (10:50)
[2022-02-20] MEDS: predniSONE 20 MG TABLET (UD) PO SCH (10:50)
[2022-02-20] MEDS: ACETAMINOPHEN 325 MG TABLET (FP) PO PRN (17:05)
[2022-02-20] MEDS: traZODone HCL 50 MG TABLET (FP) PO SCH (21:55)
[2022-02-21] MEDS: GABAPENTIN 300 MG CAPSULE PO SCH ×3 (06:19→21:14)
[2022-02-21] MEDS: ALBUTEROL SO4 2.5/IPRATROPIUM 0.5 INH SOL 3 ML VIAL.NEB. NEB SCH ×4 (07:51→19:19)
[2022-02-21 09:07] LABS: HEMATOCRIT 34.6 % (32.4-45.2); HEMOGLOBIN 11.5 GM/dL (10.7-15.3); MCH 29.4 pg (25.7-33.7); MCHC 33.3 g/dl (32.0-36.0); MEAN CELL VOLUME 88.3 fl (80-96); MEAN PLT VOLUME 8.7 fl (7.5-11.1); PLATELET COUNT 267 10^3/uL (134-434); RBC 3.92 M/mm3 (3.60-5.2); RDW 14.4 % (11.6-15.6)
[2022-02-21] MEDS ORDERED: BISACODYL 10 MG SUPP.RECT PR ONE (09:25)
[2022-02-21 09:48] LABS: BLOOD UREA NITROGEN 19.4 mg/dL (7-18); CALCIUM 8.6 mg/dL (8.5-10.1)
[2022-02-21 09:51] LABS: CREATININE 0.3 mg/dL (0.55-1.3)
[2022-02-21] MEDS: ACETAMINOPHEN 325 MG TABLET (FP) PO PRN (10:35)
[2022-02-21] MEDS: predniSONE 20 MG TABLET (UD) PO SCH (10:35)
[2022-02-21] MEDS: SOTALOL HCL 80 MG TABLET (FP) PO SCH (10:35)
[2022-02-21] MEDS: POLYETHYLENE GLYCOL (HEALTHYLAX) 3350 17 GM PACKET PO SCH ×2 (10:35→21:14)
[2022-02-21] MEDS: PANTOPRAZOLE 20 MG TABLET PO SCH (10:35)
[2022-02-21] MEDS: guaiFENesin 600 MG TABLET.ER (FP) PO SCH ×2 (10:35→21:14)
[2022-02-21] MEDS: ESCITALOPRAM OXALATE 10 MG TABLET PO SCH (10:35)
[2022-02-21] MEDS: ENOXAPARIN NA (PORCINE) 40 MG/0.4 ML DISP.SYRIN SQ SCH (10:37)
[2022-02-21 10:40] LABS: ANISOCYTOSIS 0; HELMET CELLS 0; HOWELL-JOLLY BODIES 0; MACROCYTOSIS 0; OVALOCYTE 0; ROULEAU 0; SICKELED CELLS 0; TARGET CELLS 0; TEAR DROP CELLS 0; TOXIC GRANULATION 0
[2022-02-21] MEDS: PORTA CATH FLUSH 10 ML IVPUSH PRN (10:43)
[2022-02-21 13:08] LABS: HEMATOCRIT 34.9 % (32.4-45.2); HEMOGLOBIN 11.5 GM/dL (10.7-15.3); MCH 28.9 pg (25.7-33.7); MCHC 32.9 g/dl (32.0-36.0); MEAN CELL VOLUME 87.8 fl (80-96); MEAN PLT VOLUME 8.9 fl (7.5-11.1); PLATELET COUNT 260 10^3/uL (134-434); RBC 3.97 M/mm3 (3.60-5.2); RDW 14.8 % (11.6-15.6); WHITE BLOOD COUNT 20.5 K/mm3 (4.0-10.0)
[2022-02-21] MEDS ORDERED: PIPERACILLIN/TAZOBACTAM 4.5 GM VIAL IVPB ONE ×2 (15:36→21:11)
[2022-02-21] MEDS ORDERED: VANCOMYCIN 1 GM/200 ML PREMIX BAG IVPB SCH (16:00)
[2022-02-21] MEDS: PIPERACILLIN/TAZOB 4.5 GM 4.5 GM in DEXTROSE 5%-WATER 100 ML IVPB SCH ×2 (16:05→21:13)
[2022-02-21] MEDS: VANCOMYCIN 1,000 MG in DEXTROSE 5%-WATER - 250 ML IVPB SCH (17:05)
[2022-02-21 17:52] LABS: EPI CELLS 25 /uL (0-25.1); HYALINE CASTS 0 /uL (0-3.1); PH,URINE 5.5 (5.0-8.0); URINE APPEARANCE TURBID; URINE BACTERIA 1588 /uL (0-1359); URINE BILIRUBIN NEGATIVE (NEGATIVE); URINE COLOR YELLOW; URINE GLUCOSE (UA) TRACE (NEGATIVE); URINE KETONE TRACE (NEGATIVE); URINE LEUK ESTERASE 3+ (NEGATIVE); URINE NITRITE NEGATIVE (NEGATIVE); URINE PROTEIN TRACE (NEGATIVE); URINE UROBILINOGEN 0.2 mg/dL (0.2-1.0); URINE WBC 899 /uL (0-25.8)
[2022-02-21] MEDS ORDERED: DEXTROSE 5%-WATER 100 ML IVPB ONE (21:11)
[2022-02-21] MEDS: traZODone HCL 50 MG TABLET (FP) PO SCH (21:14)
[2022-02-21] MEDS ORDERED: VANCOMYCIN 1 GM in D5W (PRE-DOCKED) 1,000 MG/250 ML IVPB SCH (22:00)
[2022-02-22] MEDS ORDERED: DEXTROSE 5%-WATER 100 ML IVPB ONE ×2 (02:38→08:12)
[2022-02-22] MEDS ORDERED: PIPERACILLIN/TAZOBACTAM 4.5 GM VIAL IVPB ONE ×2 (02:38→08:12)
[2022-02-22] MEDS: PIPERACILLIN/TAZOB 4.5 GM 4.5 GM in DEXTROSE 5%-WATER 100 ML IVPB SCH ×2 (02:40→08:26)
[2022-02-22] MEDS: GABAPENTIN 300 MG CAPSULE PO SCH ×3 (05:52→22:13)
[2022-02-22] MEDS: VANCOMYCIN 1,000 MG in DEXTROSE 5%-WATER - 250 ML IVPB SCH (05:53)
[2022-02-22] MEDS: ALBUTEROL SO4 2.5/IPRATROPIUM 0.5 INH SOL 3 ML VIAL.NEB. NEB SCH ×2 (08:12→12:29)
[2022-02-22 08:54] LABS: BASO % 0.5 % (0-2.0); EOS % 0.4 % (0-4.5); HEMATOCRIT 30.7 % (32.4-45.2); HEMOGLOBIN 10.1 GM/dL (10.7-15.3); LYMPH % 10.6 % (8-40); MCHC 33.1 g/dl (32.0-36.0); MEAN CELL VOLUME 87.6 fl (80-96); MEAN PLT VOLUME 8.9 fl (7.5-11.1); MONO % 4.1 % (3.8-10.2); NEUT % 84.4 % (42.8-82.8); PLATELET COUNT 256 10^3/uL (134-434); RDW 14.3 % (11.6-15.6)
[2022-02-22 09:04] LABS: CALCIUM 8.5 mg/dL (8.5-10.1)
[2022-02-22 09:05] LABS: ALBUMIN 2.5 g/dl (3.4-5.0); BLOOD UREA NITROGEN 21.4 mg/dL (7-18); MAGNESIUM 2.3 mg/dL (1.8-2.4)
[2022-02-22 09:08] LABS: CREATININE 0.5 mg/dL (0.55-1.3); PHOSPHOROUS 3.4 mg/dL (2.5-4.9)
[2022-02-22 09:09] LABS: BILIRUBIN,TOTAL 0.6 mg/dL (0.2-1)
[2022-02-22] MEDS: guaiFENesin 600 MG TABLET.ER (FP) PO SCH ×2 (10:47→22:13)
[2022-02-22] MEDS: predniSONE 20 MG TABLET (UD) PO SCH (10:47)
[2022-02-22] MEDS: ESCITALOPRAM OXALATE 10 MG TABLET PO SCH (10:47)
[2022-02-22] MEDS: PANTOPRAZOLE 20 MG TABLET PO SCH (10:48)
[2022-02-22] MEDS: LACTOBACILLUS ACIDOPHILUS 1 TABLET PO SCH (10:48)
[2022-02-22] MEDS: POLYETHYLENE GLYCOL (HEALTHYLAX) 3350 17 GM PACKET PO SCH ×2 (10:48→22:13)
[2022-02-22] MEDS: SOTALOL HCL 80 MG TABLET (FP) PO SCH (10:49)
[2022-02-22 10:50] LABS: ANISOCYTOSIS 0; MACROCYTOSIS 0
[2022-02-22] MEDS: ENOXAPARIN NA (PORCINE) 40 MG/0.4 ML DISP.SYRIN SQ SCH (10:50)
[2022-02-22] MEDS: PORTA CATH FLUSH 10 ML IVPUSH PRN (11:20)
[2022-02-22] MEDS: ACETAMINOPHEN 325 MG TABLET (FP) PO PRN (14:24)
[2022-02-22] MEDS ORDERED: PIPERACILLIN/TAZOBACTAM 3.375 GM VIAL IVPB ONE ×2 (17:36)
[2022-02-22] MEDS ORDERED: DEXTROSE 5%-WATER - 50 ML IVPB ONE ×2 (17:36→17:37)
[2022-02-22] MEDS: PIPERACILLIN/TAZOB 3.375 GM 3.375 GM in DEXTROSE 5%-WATER - 50 ML IVPB SCH (17:41)
[2022-02-22] MEDS: traZODone HCL 50 MG TABLET (FP) PO SCH (22:13)
[2022-02-23] MEDS ORDERED: PIPERACILLIN/TAZOBACTAM 3.375 GM VIAL IVPB ONE ×3 (01:46→16:57)
[2022-02-23] MEDS ORDERED: DEXTROSE 5%-WATER - 50 ML IVPB ONE ×3 (01:47→16:57)
[2022-02-23] MEDS: PIPERACILLIN/TAZOB 3.375 GM 3.375 GM in DEXTROSE 5%-WATER - 50 ML IVPB SCH ×3 (01:47→17:08)
[2022-02-23] MEDS: GABAPENTIN 300 MG CAPSULE PO SCH ×3 (06:07→21:20)
[2022-02-23] MEDS: ALBUTEROL SO4 2.5/IPRATROPIUM 0.5 INH SOL 3 ML VIAL.NEB. NEB SCH ×4 (07:30→20:39)
[2022-02-23] MEDS: LACTOBACILLUS ACIDOPHILUS 1 TABLET PO SCH (09:19)
[2022-02-23] MEDS: ENOXAPARIN NA (PORCINE) 40 MG/0.4 ML DISP.SYRIN SQ SCH (09:19)
[2022-02-23] MEDS: POLYETHYLENE GLYCOL (HEALTHYLAX) 3350 17 GM PACKET PO SCH ×2 (09:19→21:20)
[2022-02-23] MEDS: SOTALOL HCL 80 MG TABLET (FP) PO SCH (09:20)
[2022-02-23] MEDS: guaiFENesin 600 MG TABLET.ER (FP) PO SCH ×2 (09:20→21:20)
[2022-02-23] MEDS: ACETAMINOPHEN 325 MG TABLET (FP) PO PRN ×2 (09:20→21:20)
[2022-02-23] MEDS: predniSONE 20 MG TABLET (UD) PO SCH (09:20)
[2022-02-23] MEDS: PANTOPRAZOLE 20 MG TABLET PO SCH (09:20)
[2022-02-23] MEDS: ESCITALOPRAM OXALATE 10 MG TABLET PO SCH (09:22)
[2022-02-23 10:21] LABS: HEMATOCRIT 34.6 % (32.4-45.2); HEMOGLOBIN 11.2 GM/dL (10.7-15.3); MCH 28.7 pg (25.7-33.7); MCHC 32.4 g/dl (32.0-36.0); MEAN CELL VOLUME 88.5 fl (80-96); MEAN PLT VOLUME 8.9 fl (7.5-11.1); PLATELET COUNT 238 10^3/uL (134-434); RBC 3.91 M/mm3 (3.60-5.2); RDW 15.3 % (11.6-15.6); WHITE BLOOD COUNT 23.8 K/mm3 (4.0-10.0)
[2022-02-23 10:37] LABS: CALCIUM 8.9 mg/dL (8.5-10.1)
[2022-02-23 10:38] LABS: BLOOD UREA NITROGEN 20.9 mg/dL (7-18)
[2022-02-23 10:41] LABS: CREATININE 0.4 mg/dL (0.55-1.3)
[2022-02-23 11:16] LABS: ANISOCYTOSIS 0; HELMET CELLS 0; HOWELL-JOLLY BODIES 0; MACROCYTOSIS 0; OVALOCYTE 0; ROULEAU 0; SICKELED CELLS 0; TARGET CELLS 0; TEAR DROP CELLS 0; TOXIC GRANULATION 0
[2022-02-23] MEDS: PORTA CATH FLUSH 10 ML IVPUSH PRN (17:08)
[2022-02-23] MEDS: traZODone HCL 50 MG TABLET (FP) PO SCH (21:20)
[2022-02-24] MEDS ORDERED: DEXTROSE 5%-WATER - 50 ML IVPB ONE ×2 (00:33→09:23)
[2022-02-24] MEDS ORDERED: PIPERACILLIN/TAZOBACTAM 3.375 GM VIAL IVPB ONE ×3 (00:33→16:52)
[2022-02-24] MEDS: PIPERACILLIN/TAZOB 3.375 GM 3.375 GM in DEXTROSE 5%-WATER - 50 ML IVPB SCH ×3 (01:26→17:08)
[2022-02-24] MEDS: GABAPENTIN 300 MG CAPSULE PO SCH ×3 (05:21→21:03)
[2022-02-24] MEDS: PIPERACILLIN/TAZOB 4.5 GM 4.5 GM in DEXTROSE 5%-WATER 100 ML IVPB SCH (07:08)
[2022-02-24 07:52] LABS: BASO % 0.4 % (0-2.0); EOS % 0.4 % (0-4.5); HEMATOCRIT 25.3 % (32.4-45.2); HEMOGLOBIN 8.2 GM/dL (10.7-15.3); LYMPH % 10.6 % (8-40); MCH 28.8 pg (25.7-33.7); MCHC 32.5 g/dl (32.0-36.0); MEAN CELL VOLUME 88.5 fl (80-96); MEAN PLT VOLUME 8.9 fl (7.5-11.1); MONO % 3.5 % (3.8-10.2); NEUT % 85.1 % (42.8-82.8); PLATELET COUNT 202 10^3/uL (134-434); RBC 2.86 M/mm3 (3.60-5.2); RDW 14.7 % (11.6-15.6)
[2022-02-24] MEDS: ALBUTEROL SO4 2.5/IPRATROPIUM 0.5 INH SOL 3 ML VIAL.NEB. NEB SCH ×4 (08:16→20:21)
[2022-02-24 08:37] LABS: CALCIUM 8.4 mg/dL (8.5-10.1)
[2022-02-24 08:38] LABS: BLOOD UREA NITROGEN 30.7 mg/dL (7-18)
[2022-02-24 08:41] LABS: CREATININE 0.3 mg/dL (0.55-1.3)
[2022-02-24] MEDS: ESCITALOPRAM OXALATE 10 MG TABLET PO SCH (09:28)
[2022-02-24] MEDS: LACTOBACILLUS ACIDOPHILUS 1 TABLET PO SCH (09:28)
[2022-02-24] MEDS: guaiFENesin 600 MG TABLET.ER (FP) PO SCH ×2 (09:28→21:03)
[2022-02-24] MEDS: predniSONE 20 MG TABLET (UD) PO SCH (09:28)
[2022-02-24] MEDS: POLYETHYLENE GLYCOL (HEALTHYLAX) 3350 17 GM PACKET PO SCH ×2 (09:29→21:04)
[2022-02-24] MEDS: PANTOPRAZOLE 20 MG TABLET PO SCH (09:29)
[2022-02-24] MEDS: SOTALOL HCL 80 MG TABLET (FP) PO SCH (10:22)
[2022-02-24] MEDS: ENOXAPARIN NA (PORCINE) 40 MG/0.4 ML DISP.SYRIN SQ SCH (10:22)
[2022-02-24] MEDS: PORTA CATH FLUSH 10 ML IVPUSH PRN (12:05)
[2022-02-24 15:45] LABS: HEMATOCRIT 27.6 % (32.4-45.2); HEMOGLOBIN 8.8 GM/dL (10.7-15.3); MCH 28.3 pg (25.7-33.7); MEAN CELL VOLUME 88.7 fl (80-96); MEAN PLT VOLUME 8.8 fl (7.5-11.1); PLATELET COUNT 220 10^3/uL (134-434); RBC 3.12 M/mm3 (3.60-5.2); WHITE BLOOD COUNT 17.1 K/mm3 (4.0-10.0)
[2022-02-24 17:57] LABS: ANISOCYTOSIS 1+; MACROCYTOSIS 1+; OVALOCYTE 1+; PLATELET ESTIMATE NORMAL
[2022-02-24] MEDS: ACETAMINOPHEN 325 MG TABLET (FP) PO PRN (21:03)
[2022-02-24] MEDS: traZODone HCL 50 MG TABLET (FP) PO SCH (21:03)
[2022-02-25] MEDS ORDERED: PIPERACILLIN/TAZOBACTAM 3.375 GM VIAL IVPB ONE ×3 (00:35→17:09)
[2022-02-25] MEDS ORDERED: DEXTROSE 5%-WATER - 50 ML IVPB ONE ×3 (00:35→17:09)
[2022-02-25] MEDS: PIPERACILLIN/TAZOB 3.375 GM 3.375 GM in DEXTROSE 5%-WATER - 50 ML IVPB SCH ×3 (01:05→18:32)
[2022-02-25] MEDS: PORTA CATH FLUSH 10 ML IVPUSH PRN (05:59)
[2022-02-25] MEDS: GABAPENTIN 300 MG CAPSULE PO SCH ×3 (06:00→22:14)
[2022-02-25 07:40] LABS: HEMATOCRIT 26.1 % (32.4-45.2); HEMOGLOBIN 8.5 GM/dL (10.7-15.3); MCH 28.5 pg (25.7-33.7); MCHC 32.5 g/dl (32.0-36.0); MEAN CELL VOLUME 87.6 fl (80-96); MEAN PLT VOLUME 8.5 fl (7.5-11.1); PLATELET COUNT 204 10^3/uL (134-434); RBC 2.98 M/mm3 (3.60-5.2); RDW 14.5 % (11.6-15.6); WHITE BLOOD COUNT 12.1 K/mm3 (4.0-10.0)
[2022-02-25 07:55] LABS: CALCIUM 8.5 mg/dL (8.5-10.1)
[2022-02-25 07:56] LABS: BLOOD UREA NITROGEN 29.4 mg/dL (7-18)
[2022-02-25 07:59] LABS: CREATININE 0.3 mg/dL (0.55-1.3)
[2022-02-25] MEDS: ALBUTEROL SO4 2.5/IPRATROPIUM 0.5 INH SOL 3 ML VIAL.NEB. NEB SCH ×4 (08:06→20:02)
[2022-02-25] MEDS: ENOXAPARIN NA (PORCINE) 40 MG/0.4 ML DISP.SYRIN SQ SCH (10:07)
[2022-02-25] MEDS: SOTALOL HCL 80 MG TABLET (FP) PO SCH (10:07)
[2022-02-25] MEDS: LACTOBACILLUS ACIDOPHILUS 1 TABLET PO SCH (10:07)
[2022-02-25] MEDS: guaiFENesin 600 MG TABLET.ER (FP) PO SCH ×2 (10:07→22:14)
[2022-02-25] MEDS: ESCITALOPRAM OXALATE 10 MG TABLET PO SCH (10:07)
[2022-02-25] MEDS: PANTOPRAZOLE 20 MG TABLET PO SCH (10:07)
[2022-02-25] MEDS: POLYETHYLENE GLYCOL (HEALTHYLAX) 3350 17 GM PACKET PO SCH ×2 (10:07→22:14)
[2022-02-25] MEDS: ACETAMINOPHEN 325 MG TABLET (FP) PO PRN ×2 (10:08→23:55)
[2022-02-25] MEDS: traZODone HCL 50 MG TABLET (FP) PO SCH (22:13)
[2022-02-26] MEDS ORDERED: PIPERACILLIN/TAZOBACTAM 3.375 GM VIAL IVPB ONE ×3 (02:21→17:09)
[2022-02-26] MEDS ORDERED: DEXTROSE 5%-WATER - 50 ML IVPB ONE ×3 (02:21→17:09)
[2022-02-26] MEDS: PORTA CATH FLUSH 10 ML IVPUSH PRN (02:33)
[2022-02-26] MEDS: PIPERACILLIN/TAZOB 3.375 GM 3.375 GM in DEXTROSE 5%-WATER - 50 ML IVPB SCH ×3 (02:33→17:36)
[2022-02-26] MEDS: GABAPENTIN 300 MG CAPSULE PO SCH ×3 (06:47→21:00)
[2022-02-26] MEDS: ALBUTEROL SO4 2.5/IPRATROPIUM 0.5 INH SOL 3 ML VIAL.NEB. NEB SCH ×4 (07:35→20:23)
[2022-02-26] MEDS: ENOXAPARIN NA (PORCINE) 40 MG/0.4 ML DISP.SYRIN SQ SCH (10:10)
[2022-02-26] MEDS: ESCITALOPRAM OXALATE 10 MG TABLET PO SCH (10:10)
[2022-02-26] MEDS: LACTOBACILLUS ACIDOPHILUS 1 TABLET PO SCH (10:10)
[2022-02-26] MEDS: SOTALOL HCL 80 MG TABLET (FP) PO SCH (10:11)
[2022-02-26] MEDS: guaiFENesin 600 MG TABLET.ER (FP) PO SCH ×2 (10:11→21:01)
[2022-02-26] MEDS: PANTOPRAZOLE 20 MG TABLET PO SCH (10:11)
[2022-02-26] MEDS: POLYETHYLENE GLYCOL (HEALTHYLAX) 3350 17 GM PACKET PO SCH ×2 (10:12→21:01)
[2022-02-26] MEDS: ACETAMINOPHEN 325 MG TABLET (FP) PO PRN (16:27)
[2022-02-26] MEDS: traZODone HCL 50 MG TABLET (FP) PO SCH (21:01)
[2022-02-27] MEDS ORDERED: PIPERACILLIN/TAZOBACTAM 3.375 GM VIAL IVPB ONE ×3 (00:23→16:48)
[2022-02-27] MEDS ORDERED: DEXTROSE 5%-WATER - 50 ML IVPB ONE ×3 (00:23→16:49)
[2022-02-27] MEDS: PIPERACILLIN/TAZOB 3.375 GM 3.375 GM in DEXTROSE 5%-WATER - 50 ML IVPB SCH ×3 (02:56→17:11)
[2022-02-27] MEDS: GABAPENTIN 300 MG CAPSULE PO SCH ×3 (06:01→21:05)
[2022-02-27] MEDS: ALBUTEROL SO4 2.5/IPRATROPIUM 0.5 INH SOL 3 ML VIAL.NEB. NEB SCH ×4 (08:43→20:10)
[2022-02-27 09:11] LABS: BASO % 0.7 % (0-2.0); EOS % 1.5 % (0-4.5); HEMATOCRIT 30.2 % (32.4-45.2); HEMOGLOBIN 9.6 GM/dL (10.7-15.3); LYMPH % 15.9 % (8-40); MCH 28.5 pg (25.7-33.7); MCHC 31.8 g/dl (32.0-36.0); MEAN CELL VOLUME 89.6 fl (80-96); MEAN PLT VOLUME 8.6 fl (7.5-11.1); MONO % 2.3 % (3.8-10.2); NEUT % 79.6 % (42.8-82.8); PLATELET COUNT 227 10^3/uL (134-434); RBC 3.37 M/mm3 (3.60-5.2); RDW 15.3 % (11.6-15.6); WHITE BLOOD COUNT 13.9 K/mm3 (4.0-10.0)
[2022-02-27 09:19] LABS: BLOOD UREA NITROGEN 21.2 mg/dL (7-18); MAGNESIUM 2.2 mg/dL (1.8-2.4)
[2022-02-27 09:22] LABS: PHOSPHOROUS 3.7 mg/dL (2.5-4.9)
[2022-02-27 09:23] LABS: CREATININE 0.4 mg/dL (0.55-1.3)
[2022-02-27] MEDS: ESCITALOPRAM OXALATE 10 MG TABLET PO SCH (09:32)
[2022-02-27] MEDS: ENOXAPARIN NA (PORCINE) 40 MG/0.4 ML DISP.SYRIN SQ SCH (09:32)
[2022-02-27] MEDS: guaiFENesin 600 MG TABLET.ER (FP) PO SCH ×2 (09:33→21:05)
[2022-02-27] MEDS: POLYETHYLENE GLYCOL (HEALTHYLAX) 3350 17 GM PACKET PO SCH ×2 (09:33→21:06)
[2022-02-27] MEDS: LACTOBACILLUS ACIDOPHILUS 1 TABLET PO SCH (09:33)
[2022-02-27] MEDS: PANTOPRAZOLE 20 MG TABLET PO SCH (09:33)
[2022-02-27] MEDS: SOTALOL HCL 80 MG TABLET (FP) PO SCH (09:34)
[2022-02-27] MEDS: traZODone HCL 50 MG TABLET (FP) PO SCH (21:05)
[2022-02-27] MEDS: ACETAMINOPHEN 325 MG TABLET (FP) PO PRN (21:05)
[2022-02-28] MEDS ORDERED: DEXTROSE 5%-WATER - 50 ML IVPB ONE ×2 (00:37→09:20)
[2022-02-28] MEDS ORDERED: PIPERACILLIN/TAZOBACTAM 3.375 GM VIAL IVPB ONE ×2 (00:37→09:20)
[2022-02-28] MEDS: PIPERACILLIN/TAZOB 3.375 GM 3.375 GM in DEXTROSE 5%-WATER - 50 ML IVPB SCH ×2 (01:07→09:28)
[2022-02-28] MEDS: ACETAMINOPHEN 325 MG TABLET (FP) PO PRN ×2 (01:30→16:31)
[2022-02-28] MEDS: GABAPENTIN 300 MG CAPSULE PO SCH ×3 (06:00→21:31)
[2022-02-28] MEDS: ALBUTEROL SO4 2.5/IPRATROPIUM 0.5 INH SOL 3 ML VIAL.NEB. NEB SCH ×4 (08:10→19:10)
[2022-02-28] MEDS: ENOXAPARIN NA (PORCINE) 40 MG/0.4 ML DISP.SYRIN SQ SCH (09:29)
[2022-02-28] MEDS: LACTOBACILLUS ACIDOPHILUS 1 TABLET PO SCH (09:29)
[2022-02-28] MEDS: PANTOPRAZOLE 20 MG TABLET PO SCH (09:30)
[2022-02-28] MEDS: guaiFENesin 600 MG TABLET.ER (FP) PO SCH ×2 (09:30→21:31)
[2022-02-28] MEDS: ESCITALOPRAM OXALATE 10 MG TABLET PO SCH (09:30)
[2022-02-28] MEDS: POLYETHYLENE GLYCOL (HEALTHYLAX) 3350 17 GM PACKET PO SCH ×2 (09:30→21:31)
[2022-02-28] MEDS: SOTALOL HCL 80 MG TABLET (FP) PO SCH (09:30)
[2022-02-28 10:57] LABS: CALCIUM 8.1 mg/dL (8.5-10.1)
[2022-02-28 11:01] LABS: CREATININE 0.4 mg/dL (0.55-1.3)
[2022-02-28 11:34] LABS: BASO % 0.3 % (0-2.0); EOS % 1.5 % (0-4.5); HEMATOCRIT 24.1 % (32.4-45.2); LYMPH % 20.2 % (8-40); MCH 29.4 pg (25.7-33.7); MCHC 33.2 g/dl (32.0-36.0); MEAN CELL VOLUME 88.4 fl (80-96); MEAN PLT VOLUME 8.5 fl (7.5-11.1); MONO % 4.1 % (3.8-10.2); NEUT % 73.9 % (42.8-82.8); PLATELET COUNT 192 10^3/uL (134-434); RBC 2.73 M/mm3 (3.60-5.2); RDW 15.3 % (11.6-15.6); WHITE BLOOD COUNT 8.7 K/mm3 (4.0-10.0)
[2022-02-28] MEDS ORDERED: LACTATED RINGERS SOLUTION 1,000 ML/1,000 ML INFUS.BAG IV SCH (11:45)
[2022-02-28] MEDS: traZODone HCL 50 MG TABLET (FP) PO SCH (21:31)
[2022-03-01] MEDS: ACETAMINOPHEN 325 MG TABLET (FP) PO PRN
[2022-03-01] MEDS: GABAPENTIN 300 MG CAPSULE PO SCH ×2 (06:18→13:25)
[2022-03-01] MEDS: ALBUTEROL SO4 2.5/IPRATROPIUM 0.5 INH SOL 3 ML VIAL.NEB. NEB SCH ×2 (08:30→12:28)
[2022-03-01 09:11] LABS: BASO % 0.7 % (0-2.0); EOS % 2.2 % (0-4.5); HEMATOCRIT 28.6 % (32.4-45.2); HEMOGLOBIN 9.5 GM/dL (10.7-15.3); LYMPH % 22.4 % (8-40); MCHC 33.4 g/dl (32.0-36.0); MEAN CELL VOLUME 89.8 fl (80-96); MEAN PLT VOLUME 7.9 fl (7.5-11.1); MONO % 4.8 % (3.8-10.2); NEUT % 69.9 % (42.8-82.8); PLATELET COUNT 187 10^3/uL (134-434); RBC 3.19 M/mm3 (3.60-5.2); RDW 15.7 % (11.6-15.6); WHITE BLOOD COUNT 9.6 K/mm3 (4.0-10.0)
[2022-03-01] MEDS: ESCITALOPRAM OXALATE 10 MG TABLET PO SCH (10:07)
[2022-03-01] MEDS: POLYETHYLENE GLYCOL (HEALTHYLAX) 3350 17 GM PACKET PO SCH (10:07)
[2022-03-01] MEDS: LACTOBACILLUS ACIDOPHILUS 1 TABLET PO SCH (10:07)
[2022-03-01] MEDS: PANTOPRAZOLE 20 MG TABLET PO SCH (10:07)
[2022-03-01] MEDS: ENOXAPARIN NA (PORCINE) 40 MG/0.4 ML DISP.SYRIN SQ SCH (10:07)
[2022-03-01] MEDS: guaiFENesin 600 MG TABLET.ER (FP) PO SCH (10:07)
[2022-03-01] MEDS: SOTALOL HCL 80 MG TABLET (FP) PO SCH (10:07)
[2022-03-01 10:19] LABS: CALCIUM 8.4 mg/dL (8.5-10.1)
[2022-03-01 10:20] LABS: BLOOD UREA NITROGEN 21.7 mg/dL (7-18)
[2022-03-01 10:22] VITALS: TEMP 98
[2022-03-01 10:23] LABS: CREATININE 0.3 mg/dL (0.55-1.3)
[2022-03-01 14:09] VITALS: BP 91/58; PULSE 74
== END 2022-03-01 15:48 | disposition home or self-care (01) | DRG 193 ==
LOC: JER 18:04 → JERBED 22:45 → J6S 02-11 05:32
PROVIDERS: ADMIT Hospitalist; ATTEND Internal Medicine
DX: J18.9 Pneumonia, unspecified organism (principal); J96.01 Acute respiratory failure with hypoxia; G93.41 Metabolic encephalopathy; N39.0 Urinary tract infection, site not specified; J44.1 Chronic obstructive pulmonary disease with (acute) exacerbation; J98.11 Atelectasis; R00.0 Tachycardia, unspecified; I10 Essential (primary) hypertension; E78.5 Hyperlipidemia, unspecified; Z85.3 Personal history of malignant neoplasm of breast; G20 Parkinson's disease; M17.0 Bilateral primary osteoarthritis of knee; I25.10 Atherosclerotic heart disease of native coronary artery without angina pectoris; J20.9 Acute bronchitis, unspecified; D72.829 Elevated white blood cell count, unspecified; D64.9 Anemia, unspecified
CPT/HCPCS: 36415; 70450-TC; 71045-TC-FY; 71046-TC-FY; 71250-TC; 73502-TC-LT-FY; 73560-TC-LT-FY; 73560-TC-RT-FY; 80048; 80053; 81003; 82272; 82728; 83036; 83540; 83550; 83735; 84100; 84443; 84484; 85025; 85027; 87040; 87086; 87804; 87807; 93005; 93010; 94010; 94640; 94761; 99285-25; C9803-CS; U0003; U0005

== ENCOUNTER 2022-08-23 11:34 | Emergency (ER) | payer OTHER ==
[2022-08-23 12:36] VITALS: BP 119/77; PULSE 79; RESP 18; TEMP 98.8; BMI 21.7
[2022-08-23 12:37] LABS: BASO % 0.8 % (0-2.0); HEMOGLOBIN 12.5 GM/dL (10.7-15.3); LYMPH % 26.3 % (8-40); MCH 28.8 pg (25.7-33.7); MCHC 32.8 g/dl (32.0-36.0); MEAN CELL VOLUME 87.8 fl (80-96); MEAN PLT VOLUME 9.8 fl (7.5-11.1); MONO % 3.3 % (3.8-10.2); NEUT % 63.6 % (42.8-82.8); PLATELET COUNT 186 10^3/uL (134-434); RBC 4.33 M/mm3 (3.60-5.2); RDW 14.5 % (11.6-15.6); WHITE BLOOD COUNT 7.2 K/mm3 (4.0-10.0)
[2022-08-23 14:47] LABS: ACTIVATED PTT 26.2 SECONDS (25.2-36.5); INR 1.12 (0.83-1.09); PROTHROMBIN TIME (PATIENT) 12.9 SEC (9.7-13.0)
[2022-08-23 14:52] LABS: CALCIUM 8.4 mg/dL (8.5-10.1)
[2022-08-23 14:53] LABS: ALBUMIN 2.5 g/dl (3.4-5.0); BLOOD UREA NITROGEN 12.6 mg/dL (7-18); MAGNESIUM 1.9 mg/dL (1.8-2.4)
[2022-08-23 14:56] LABS: CREATININE 0.5 mg/dL (0.55-1.3)
[2022-08-23 14:58] LABS: BILIRUBIN,TOTAL 0.3 mg/dL (0.2-1)
[2022-08-23] MEDS ORDERED: POTASSIUM CHLORIDE TABS 20 MEQ TABLET.ER (FP) PO ONE (15:00)
[2022-08-23] MEDS ORDERED: SODIUM CHLORIDE 0.9% 500 ML INFUS.BAG IV ONE (15:10)
[2022-08-23] MEDS ORDERED: KCL 10 MEQ IVPB 10 MEQ/100 ML INFUS.BAG IVPB ONE (15:21)
[2022-08-23] MEDS: KCL 10 MEQ IVPB 10 MEQ/100 ML INFUS.BAG IVPB SCH ×3 (15:25→17:14)
== END 2022-08-23 20:01 | disposition home or self-care (01) ==
LOC: JER 11:34
PROC: 3E0337Z Introduction of Electrolytic and Water Balance Substance into Peripheral Vein, Percutaneous Approach (ICD-10-PCS; principal; 2022-08-23)
DX: R10.32 Left lower quadrant pain (principal); R19.7 Diarrhea, unspecified
CPT/HCPCS: 0241U-QW; 36415; 74176-TC; 80053; 82272; 83735; 84100; 85025; 85610; 85730; 86850; 86900; 86901; 93005; 93010; 99285-25

== ENCOUNTER 2022-11-29 10:26 | Inpatient (IN) | payer OTHER ==
[2022-11-29] MEDS ORDERED: PIPERACILLIN/TAZOB 3.375 GM 3.375 GM in DEXTROSE 5%-WATER - 50 ML IVPB ONE (11:46)
[2022-11-29] MEDS ORDERED: VANCOMYCIN 1 GM in D5W (PRE-DOCKED) 1,000 MG/250 ML IVPB ONE (11:46)
[2022-11-29] MEDS ORDERED: ACETAMINOPHEN 1000 MG/100 ML BAG IVPB ONE (12:19)
[2022-11-29 12:37] VITALS: BMI 22.4
[2022-11-29] MEDS ORDERED: VANCOMYCIN/WATER FOR INJ (PEG) 1,000 MG/200 ML BAG IVPB ONE (12:43)
[2022-11-29] MEDS ORDERED: PIPERACILLIN/TAZOB 3.375 GM 3.375 GM/50 ML BAG IVPB ONE (12:44)
[2022-11-29 14:14] LABS: BASO % 0.5 % (0-2.0); EOS % 1.9 % (0-4.5); HEMATOCRIT 36.7 % (32.4-45.2); HEMOGLOBIN 11.9 GM/dL (10.7-15.3); LYMPH % 22.3 % (8-40); MCH 29.3 pg (25.7-33.7); MCHC 32.5 g/dl (32.0-36.0); MEAN CELL VOLUME 90.2 fl (80-96); MEAN PLT VOLUME 9.7 fl (7.5-11.1); MONO % 3.1 % (3.8-10.2); NEUT % 72.2 % (42.8-82.8); PLATELET COUNT 174 10^3/uL (134-434); RBC 4.07 M/mm3 (3.60-5.2); WHITE BLOOD COUNT 11.1 K/mm3 (4.0-10.0)
[2022-11-29 14:20] LABS: INR 0.98 (0.83-1.09); PROTHROMBIN TIME (PATIENT) 11.4 SEC (9.7-13.0)
[2022-11-29 14:23] LABS: ACTIVATED PTT 27.3 SECONDS (25.2-36.5)
[2022-11-29 14:37] LABS: ALBUMIN 2.9 g/dl (3.4-5.0); CALCIUM 8.6 mg/dL (8.5-10.1)
[2022-11-29 14:41] LABS: CREATININE 0.5 mg/dL (0.55-1.3)
[2022-11-29 14:43] LABS: BILIRUBIN,TOTAL 0.2 mg/dL (0.2-1); TOT PROT 6.3 g/dl (6.4-8.2)
[2022-11-29 14:53] LABS: ERYTHROCYTE SEDIMENTATION RATE 29 mm/hr (0-30)
[2022-11-29 14:55] LABS: BLOOD UREA NITROGEN 13.4 mg/dL (7-18)
[2022-11-29] MEDS ORDERED: PIPERACILLIN/TAZOB 3.375 GM 3.375 GM in DEXTROSE 5%-WATER - 50 ML IVPB SCH (18:00)
[2022-11-29] MEDS: GABAPENTIN 300 MG CAPSULE PO SCH (22:17)
[2022-11-29] MEDS: ATORVASTATIN CA 20 MG TABLET (FP) PO SCH (22:17)
[2022-11-29] MEDS: traZODone HCL 50 MG TABLET (FP) PO SCH (22:17)
[2022-11-29] MEDS: PIPERACILLIN/TAZOB 3.375 GM 3.375 GM in DEXTROSE 5%-WATER - 50 ML IVPB SCH (22:18)
[2022-11-29] MEDS: SOTALOL HCL 80 MG TABLET (FP) PO SCH (22:24)
[2022-11-30] MEDS: PIPERACILLIN/TAZOB 3.375 GM 3.375 GM in DEXTROSE 5%-WATER - 50 ML IVPB SCH ×3 (04:29→18:20)
[2022-11-30] MEDS: GABAPENTIN 300 MG CAPSULE PO SCH ×3 (06:39→23:02)
[2022-11-30 09:14] LABS: HEMATOCRIT 30.8 % (32.4-45.2); HEMOGLOBIN 10.5 GM/dL (10.7-15.3); MCH 30.5 pg (25.7-33.7); MEAN CELL VOLUME 89.8 fl (80-96); MEAN PLT VOLUME 8.9 fl (7.5-11.1); PLATELET COUNT 142 10^3/uL (134-434); RBC 3.43 M/mm3 (3.60-5.2); RDW 14.9 % (11.6-15.6); WHITE BLOOD COUNT 10.8 K/mm3 (4.0-10.0)
[2022-11-30] MEDS: ENOXAPARIN NA (PORCINE) 40 MG/0.4 ML DISP.SYRIN SQ SCH (09:28)
[2022-11-30] MEDS: ASPIRIN COATED 81 MG TABLET.EC PO SCH (09:29)
[2022-11-30] MEDS: SOTALOL HCL 80 MG TABLET (FP) PO SCH (09:29)
[2022-11-30] MEDS: ESCITALOPRAM OXALATE 10 MG TABLET PO SCH (09:30)
[2022-11-30] MEDS: PANTOPRAZOLE 20 MG TABLET PO SCH (09:30)
[2022-11-30] MEDS ORDERED: [UNRECOGNIZED DRUG - MIXTURE] PO SCH (10:00)
[2022-11-30] MEDS ORDERED: ENOXAPARIN NA (PORCINE) 40 MG/0.4 ML DISP.SYRIN SQ SCH (10:00)
[2022-11-30 10:37] LABS: CREATININE 0.5 mg/dL (0.55-1.3)
[2022-11-30 11:01] LABS: CALCIUM 8.5 mg/dL (8.5-10.1)
[2022-11-30 11:03] LABS: BLOOD UREA NITROGEN 13.8 mg/dL (7-18)
[2022-11-30] MEDS: SODIUM HYPOCHLORITE 0.25%- 473 ML BULK BOTTLE TP SCH (13:00)
[2022-11-30] MEDS: COLLAGENASE CLOSTRIDIUM HIST. 30 GRAMS TUBE TP SCH (13:00)
[2022-11-30] MEDS: ATORVASTATIN CA 20 MG TABLET (FP) PO SCH (23:02)
[2022-11-30] MEDS: traZODone HCL 50 MG TABLET (FP) PO SCH (23:02)
[2022-12-01] MEDS: PIPERACILLIN/TAZOB 3.375 GM 3.375 GM in DEXTROSE 5%-WATER - 50 ML IVPB SCH ×3 (02:35→18:42)
[2022-12-01] MEDS: GABAPENTIN 300 MG CAPSULE PO SCH ×3 (06:18→22:13)
[2022-12-01] MEDS: SOTALOL HCL 80 MG TABLET (FP) PO SCH ×3 (09:39→22:13)
[2022-12-01] MEDS: PANTOPRAZOLE 20 MG TABLET PO SCH (09:39)
[2022-12-01] MEDS: ESCITALOPRAM OXALATE 10 MG TABLET PO SCH (09:39)
[2022-12-01] MEDS: ASPIRIN COATED 81 MG TABLET.EC PO SCH (09:39)
[2022-12-01] MEDS: ENOXAPARIN NA (PORCINE) 40 MG/0.4 ML DISP.SYRIN SQ SCH (09:40)
[2022-12-01] MEDS: COLLAGENASE CLOSTRIDIUM HIST. 30 GRAMS TUBE TP SCH (09:40)
[2022-12-01] MEDS: SODIUM HYPOCHLORITE 0.25%- 473 ML BULK BOTTLE TP SCH (09:41)
[2022-12-01 09:58] LABS: BASO % 0.8 % (0-2.0); EOS % 3.4 % (0-4.5); HEMATOCRIT 30.5 % (32.4-45.2); HEMOGLOBIN 10.4 GM/dL (10.7-15.3); LYMPH % 27.3 % (8-40); MCH 30.8 pg (25.7-33.7); MCHC 34.2 g/dl (32.0-36.0); MEAN CELL VOLUME 90.2 fl (80-96); MEAN PLT VOLUME 8.7 fl (7.5-11.1); MONO % 4.9 % (3.8-10.2); NEUT % 63.6 % (42.8-82.8); PLATELET COUNT 142 10^3/uL (134-434); RBC 3.38 M/mm3 (3.60-5.2); RDW 14.5 % (11.6-15.6); WHITE BLOOD COUNT 10.1 K/mm3 (4.0-10.0)
[2022-12-01 10:29] LABS: CALCIUM 8.4 mg/dL (8.5-10.1)
[2022-12-01 10:30] LABS: ALBUMIN 2.6 g/dl (3.4-5.0); BLOOD UREA NITROGEN 18.3 mg/dL (7-18); MAGNESIUM 2.1 mg/dL (1.8-2.4)
[2022-12-01 10:33] LABS: CREATININE 0.4 mg/dL (0.55-1.3); PHOSPHOROUS 4.2 mg/dL (2.5-4.9)
[2022-12-01 10:34] LABS: TOT PROT 5.6 g/dl (6.4-8.2)
[2022-12-01 10:35] LABS: BILIRUBIN,TOTAL 0.3 mg/dL (0.2-1)
[2022-12-01] MEDS: ATORVASTATIN CA 20 MG TABLET (FP) PO SCH (22:13)
[2022-12-01] MEDS: traZODone HCL 50 MG TABLET (FP) PO SCH (22:13)
[2022-12-02] MEDS: PIPERACILLIN/TAZOB 3.375 GM 3.375 GM in DEXTROSE 5%-WATER - 50 ML IVPB SCH ×3 (01:44→17:19)
[2022-12-02] MEDS: GABAPENTIN 300 MG CAPSULE PO SCH ×3 (06:28→21:32)
[2022-12-02 09:15] LABS: HEMATOCRIT 30.1 % (32.4-45.2); HEMOGLOBIN 10.2 GM/dL (10.7-15.3); MCH 30.6 pg (25.7-33.7); MCHC 33.9 g/dl (32.0-36.0); MEAN CELL VOLUME 90.2 fl (80-96); MEAN PLT VOLUME 8.7 fl (7.5-11.1); PLATELET COUNT 132 10^3/uL (134-434); RBC 3.33 M/mm3 (3.60-5.2); RDW 14.5 % (11.6-15.6); WHITE BLOOD COUNT 7.8 K/mm3 (4.0-10.0)
[2022-12-02 09:47] LABS: CALCIUM 8.1 mg/dL (8.5-10.1)
[2022-12-02 09:49] LABS: CREATININE 0.4 mg/dL (0.55-1.3); PHOSPHOROUS 3.8 mg/dL (2.5-4.9)
[2022-12-02] MEDS: ENOXAPARIN NA (PORCINE) 40 MG/0.4 ML DISP.SYRIN SQ SCH (09:56)
[2022-12-02] MEDS: MULTIVITAMINS (DAILY MVI) TABLET (FP) PO SCH (09:57)
[2022-12-02] MEDS: ASCORBIC ACID 250 MG TABLET (FP) PO SCH (09:57)
[2022-12-02] MEDS: PANTOPRAZOLE 20 MG TABLET PO SCH (09:57)
[2022-12-02] MEDS: ESCITALOPRAM OXALATE 10 MG TABLET PO SCH (09:57)
[2022-12-02] MEDS: ASPIRIN COATED 81 MG TABLET.EC PO SCH (09:57)
[2022-12-02] MEDS: COLLAGENASE CLOSTRIDIUM HIST. 30 GRAMS TUBE TP SCH (09:58)
[2022-12-02] MEDS: SODIUM HYPOCHLORITE 0.25%- 473 ML BULK BOTTLE TP SCH (09:58)
[2022-12-02] MEDS: AMINO ACIDS/PROTEIN HYDROLYS 30 ML LIQUID.PKT PO SCH (10:01)
[2022-12-02] MEDS: SOTALOL HCL 80 MG TABLET (FP) PO SCH ×2 (10:20→21:32)
[2022-12-02 16:46] VITALS: RESP 18
[2022-12-02] MEDS: traZODone HCL 50 MG TABLET (FP) PO SCH (21:32)
[2022-12-02] MEDS: ATORVASTATIN CA 20 MG TABLET (FP) PO SCH (21:32)
[2022-12-03] MEDS: PIPERACILLIN/TAZOB 3.375 GM 3.375 GM in DEXTROSE 5%-WATER - 50 ML IVPB SCH ×3 (02:42→17:02)
[2022-12-03] MEDS: GABAPENTIN 300 MG CAPSULE PO SCH ×2 (05:33→13:09)
[2022-12-03 08:40] LABS: HEMATOCRIT 31.4 % (32.4-45.2); HEMOGLOBIN 10.5 GM/dL (10.7-15.3); MCH 30.2 pg (25.7-33.7); MCHC 33.6 g/dl (32.0-36.0); MEAN CELL VOLUME 89.9 fl (80-96); MEAN PLT VOLUME 9.5 fl (7.5-11.1); PLATELET COUNT 155 10^3/uL (134-434); RDW 14.4 % (11.6-15.6); WHITE BLOOD COUNT 8.3 K/mm3 (4.0-10.0)
[2022-12-03 08:52] LABS: CALCIUM 8.2 mg/dL (8.5-10.1)
[2022-12-03 08:53] LABS: BLOOD UREA NITROGEN 27.8 mg/dL (7-18)
[2022-12-03 08:56] LABS: CREATININE 0.4 mg/dL (0.55-1.3)
[2022-12-03] MEDS: AMINO ACIDS/PROTEIN HYDROLYS 30 ML LIQUID.PKT PO SCH (09:00)
[2022-12-03] MEDS: ENOXAPARIN NA (PORCINE) 40 MG/0.4 ML DISP.SYRIN SQ SCH (10:14)
[2022-12-03] MEDS: ESCITALOPRAM OXALATE 10 MG TABLET PO SCH (10:16)
[2022-12-03] MEDS: ASPIRIN COATED 81 MG TABLET.EC PO SCH (10:16)
[2022-12-03] MEDS: MULTIVITAMINS (DAILY MVI) TABLET (FP) PO SCH (10:17)
[2022-12-03] MEDS: ASCORBIC ACID 250 MG TABLET (FP) PO SCH (10:17)
[2022-12-03] MEDS: PANTOPRAZOLE 20 MG TABLET PO SCH (10:17)
[2022-12-03] MEDS: SOTALOL HCL 80 MG TABLET (FP) PO SCH (10:29)
[2022-12-03] MEDS: COLLAGENASE CLOSTRIDIUM HIST. 30 GRAMS TUBE TP SCH (11:30)
[2022-12-03] MEDS: SODIUM HYPOCHLORITE 0.25%- 473 ML BULK BOTTLE TP SCH (11:30)
[2022-12-03 14:37] VITALS: BP 118/60; PULSE 59; TEMP 98.3
== END 2022-12-03 18:47 | disposition home health service (06) | DRG 593 ==
LOC: JER 10:26 → INTOOBSV 15:21 → JERBED 15:21 → UNDOADMOB 15:21 → J5S 15:35 → JERBED 19:02 → J5S 19:02 → OBSVTOIN 11-30 15:12
PROVIDERS: ADMIT Internal Medicine; ATTEND Internal Medicine
DX: L89.110 Pressure ulcer of right upper back, unstageable (principal); G82.20 Paraplegia, unspecified; I10 Essential (primary) hypertension; E78.5 Hyperlipidemia, unspecified; I25.2 Old myocardial infarction; I25.10 Atherosclerotic heart disease of native coronary artery without angina pectoris
CPT/HCPCS: 36415; 71045-TC-FY; 80048; 80053; 83735; 84100; 85025; 85027; 85610; 85651; 85730; 86140; 86850; 86900; 86901; 87070; 87077; 87186; 87205; 93005; 93010; 99285-25; C9803-CS; G0378; U0003; U0005

== ENCOUNTER 2024-02-07 17:58 | Inpatient (IN) | payer OTHER ==
[2024-02-07 18:34] VITALS: BMI 23.3
[2024-02-07] MEDS: LACTATED RINGERS SOLUTION 1000 ML INFUS.BAG IV ONE ×2 (18:35→19:32)
[2024-02-07 18:56] LABS: BASO % 0.7 % (0-2.0); EOS % 1.9 % (0-4.5); HEMATOCRIT 29.9 % (32.4-45.2); HEMOGLOBIN 9.5 GM/dL (10.7-15.3); LYMPH % 29.7 % (8-40); MCH 28.8 pg (25.7-33.7); MCHC 31.8 g/dl (32.0-36.0); MEAN CELL VOLUME 90.6 fl (80-96); MEAN PLT VOLUME 9.3 fl (7.5-11.1); MONO % 4.5 % (3.8-10.2); NEUT % 63.2 % (42.8-82.8); PLATELET COUNT 111 10^3/uL (134-434); RBC 3.31 M/mm3 (3.60-5.2); RDW 16.1 % (11.6-15.6); WHITE BLOOD COUNT 8.5 K/mm3 (4.0-10.0)
[2024-02-07 19:05] LABS: INR 1.03 (0.83-1.09)
[2024-02-07 19:07] LABS: ACTIVATED PTT 30.8 SECONDS (25.2-36.5)
[2024-02-07 19:13] LABS: POTASSIUM 4.4 mmol/L (3.5-5.1)
[2024-02-07 19:18] LABS: ALBUMIN 3.1 g/dl (3.4-5.0); BLOOD UREA NITROGEN 15.5 mg/dL (7-18); CALCIUM 8.4 mg/dL (8.5-10.1)
[2024-02-07 19:21] LABS: CREATININE 0.4 mg/dL (0.55-1.3)
[2024-02-07 19:22] LABS: BILIRUBIN,TOTAL 0.3 mg/dL (0.2-1)
[2024-02-07 19:23] LABS: TOT PROT 6.1 g/dl (6.4-8.2)
[2024-02-07 19:30] LABS: VENOUS BASE EXCESS 2.1 mmol/L (-2-2); VENOUS O2 SATURATION 29.7 % (70-80); VENOUS PH 7.216 (7.310-7.410)
[2024-02-07 19:31] LABS: VENOUS PCO2 79.5 mmHg (38-52)
[2024-02-07] MEDS: SODIUM CHLORIDE 1,000 ML IV STA (21:06)
[2024-02-07 21:28] LABS: VENOUS BASE EXCESS 7.2 mmol/L (-2-2); VENOUS O2 SATURATION 24.1 % (70-80); VENOUS PH 7.266 (7.310-7.410)
[2024-02-07 21:37] LABS: VENOUS PCO2 80.7 mmHg (38-52)
[2024-02-08 00:39] LABS: EPI CELLS 3 /uL (0-25.1); HYALINE CASTS 0 /uL (0-3.1); URINE APPEARANCE CLOUDY; URINE BILIRUBIN NEGATIVE (NEGATIVE); URINE COLOR YELLOW; URINE GLUCOSE (UA) NEGATIVE (NEGATIVE); URINE KETONE NEGATIVE (NEGATIVE); URINE LEUK ESTERASE 3+ (NEGATIVE); URINE NITRITE POSITIVE (NEGATIVE); URINE PROTEIN NEGATIVE (NEGATIVE); URINE RBC 28 /uL (0-23.9); URINE UROBILINOGEN 0.2 mg/dL (0.2-1.0); URINE WBC 242 /uL (0-25.8)
[2024-02-08] MEDS ORDERED: CEFTRIAXONE 1 GM/50 ML BAG ONE ×2 (01:22→13:13)
[2024-02-08] MEDS: CEFTRIAXONE 1 GM in DEXTROSE 5%-WATER - 100 ML IVPB ONE (01:25)
[2024-02-08 04:17] LABS: ARTERIAL BLD GAS O2 SATURATION 98.4 % (95-98); ARTERIAL BLOOD GAS BASE EXCESS 3.4 mmol/L (-2-2); ARTERIAL BLOOD GAS PO2 135.2 mmHg (80-100); ARTERIAL BLOOD GAS pH 7.317 (7.350-7.450)
[2024-02-08 04:19] LABS: ALLENS TEST POSITIVE
[2024-02-08 04:20] LABS: VENT RATE 20
[2024-02-08] MEDS: SODIUM CHLORIDE 1,000 ML IV SCH ×2 (04:21→16:34)
[2024-02-08 06:40] LABS: BASO % 0.6 % (0-2.0); EOS % 1.8 % (0-4.5); HEMATOCRIT 29.7 % (32.4-45.2); HEMOGLOBIN 9.4 GM/dL (10.7-15.3); LYMPH % 27.6 % (8-40); MCH 28.9 pg (25.7-33.7); MCHC 31.8 g/dl (32.0-36.0); MEAN CELL VOLUME 90.9 fl (80-96); MEAN PLT VOLUME 9.7 fl (7.5-11.1); MONO % 4.3 % (3.8-10.2); NEUT % 65.7 % (42.8-82.8); PLATELET COUNT 112 10^3/uL (134-434); RBC 3.26 M/mm3 (3.60-5.2); RDW 15.9 % (11.6-15.6); WHITE BLOOD COUNT 8.8 K/mm3 (4.0-10.0)
[2024-02-08 06:56] LABS: POTASSIUM 4.1 mmol/L (3.5-5.1)
[2024-02-08 06:58] LABS: CALCIUM 8.6 mg/dL (8.5-10.1)
[2024-02-08 06:59] LABS: ALBUMIN 3.1 g/dl (3.4-5.0); BLOOD UREA NITROGEN 12.1 mg/dL (7-18); MAGNESIUM 1.7 mg/dL (1.8-2.4)
[2024-02-08 07:02] LABS: CREATININE 0.3 mg/dL (0.55-1.3); PHOSPHOROUS 3.6 mg/dL (2.5-4.9)
[2024-02-08 07:03] LABS: BILIRUBIN,TOTAL 0.4 mg/dL (0.2-1)
[2024-02-08] MEDS ORDERED: methylPREDNISolone NA SUCC 40 MG/1 ML VIAL ONE (13:14)
[2024-02-08] MEDS: methylPREDNISolone NA SUCC 40 MG/1 ML VIAL IVPUSH SCH (13:24)
[2024-02-08] MEDS: CEFTRIAXONE 1 GM in DEXTROSE 5%-WATER - 50 ML IVPB SCH (13:24)
[2024-02-08] MEDS: ALBUTEROL SO4 2.5/IPRATROPIUM 0.5 INH SOL 3 ML VIAL.NEB. NEB SCH ×2 (14:05→20:13)
[2024-02-08] MEDS ORDERED: ALBUTEROL SO4 2.5/IPRATROPIUM 0.5 INH SOL 3 ML VIAL.NEB. NEB ONE (14:05)
[2024-02-08] MEDS: MAGNESIUM OXIDE 400 MG TABLET (FP) PO ONE (16:34)
[2024-02-08] MEDS: ATORVASTATIN CA 80 MG TABLET (FP) PO SCH (21:41)
[2024-02-08] MEDS: traZODone HCL 50 MG TABLET (FP) PO SCH (21:41)
[2024-02-08] MEDS: SOTALOL HCL 80 MG TABLET (FP) PO SCH (21:41)
[2024-02-08] MEDS ORDERED: SOTALOL HCL 80 MG TABLET (FP) PO SCH (22:00)
[2024-02-08] MEDS ORDERED: ATORVASTATIN CA 80 MG TABLET (FP) PO SCH (22:00)
[2024-02-08] MEDS ORDERED: traZODone HCL 50 MG TABLET (FP) PO SCH (22:00)
[2024-02-09 07:36] LABS: HEMATOCRIT 25.3 % (32.4-45.2); HEMOGLOBIN 8.1 GM/dL (10.7-15.3); MCH 28.9 pg (25.7-33.7); MCHC 32.1 g/dl (32.0-36.0); MEAN CELL VOLUME 89.8 fl (80-96); MEAN PLT VOLUME 9.6 fl (7.5-11.1); PLATELET COUNT 91 10^3/uL (134-434); RBC 2.81 M/mm3 (3.60-5.2); RDW 16.2 % (11.6-15.6)
[2024-02-09 07:44] LABS: POTASSIUM 3.9 mmol/L (3.5-5.1)
[2024-02-09 07:47] LABS: ALBUMIN 2.6 g/dl (3.4-5.0); BLOOD UREA NITROGEN 15.8 mg/dL (7-18); CALCIUM 8.4 mg/dL (8.5-10.1); MAGNESIUM 1.7 mg/dL (1.8-2.4)
[2024-02-09 07:50] LABS: CREATININE 0.4 mg/dL (0.55-1.3)
[2024-02-09 07:52] LABS: BILIRUBIN,TOTAL 0.5 mg/dL (0.2-1); TOT PROT 5.1 g/dl (6.4-8.2)
[2024-02-09] MEDS: ESCITALOPRAM OXALATE 20 MG TABLET PO SCH (09:26)
[2024-02-09] MEDS: ENOXAPARIN NA (PORCINE) 40 MG/0.4 ML DISP.SYRIN SQ SCH (09:27)
[2024-02-09] MEDS: ASPIRIN COATED 81 MG TABLET.EC PO SCH (09:27)
[2024-02-09] MEDS: PANTOPRAZOLE 20 MG TABLET PO SCH (09:27)
[2024-02-09] MEDS: CEFTRIAXONE 1 GM in DEXTROSE 5%-WATER - 50 ML IVPB SCH (09:28)
[2024-02-09] MEDS: methylPREDNISolone NA SUCC 40 MG/1 ML VIAL IVPUSH SCH (09:28)
[2024-02-09] MEDS ORDERED: ESCITALOPRAM OXALATE 10 MG TABLET PO SCH (10:00)
[2024-02-09] MEDS ORDERED: PANTOPRAZOLE 20 MG TABLET PO SCH (10:00)
[2024-02-09] MEDS ORDERED: ASPIRIN COATED 81 MG TABLET.EC PO SCH (10:00)
[2024-02-09] MEDS ORDERED: ENOXAPARIN NA (PORCINE) 40 MG/0.4 ML DISP.SYRIN SQ SCH (10:00)
[2024-02-10 06:41] LABS: BASO % 0.5 % (0-2.0); HEMATOCRIT 26.8 % (32.4-45.2); HEMOGLOBIN 8.7 GM/dL (10.7-15.3); LYMPH % 27.3 % (8-40); MCH 28.8 pg (25.7-33.7); MCHC 32.4 g/dl (32.0-36.0); MEAN PLT VOLUME 9.5 fl (7.5-11.1); MONO % 5.6 % (3.8-10.2); NEUT % 66.6 % (42.8-82.8); PLATELET COUNT 96 10^3/uL (134-434); RBC 3.01 M/mm3 (3.60-5.2); RDW 16.5 % (11.6-15.6); WHITE BLOOD COUNT 9.2 K/mm3 (4.0-10.0)
[2024-02-10 07:20] LABS: CALCIUM 8.3 mg/dL (8.5-10.1); POTASSIUM 3.7 mmol/L (3.5-5.1)
[2024-02-10 07:21] LABS: BLOOD UREA NITROGEN 18.3 mg/dL (7-18)
[2024-02-10 07:24] LABS: CREATININE 0.4 mg/dL (0.55-1.3)
[2024-02-10 14:08] LABS: ARTERIAL BLD GAS O2 SATURATION 97.3 % (95-98); ARTERIAL BLOOD GAS BASE EXCESS 4.7 mmol/L (-2-2); ARTERIAL BLOOD GAS PO2 90.7 mmHg (80-100); ARTERIAL BLOOD GAS pH 7.459 (7.350-7.450)
[2024-02-10 14:09] LABS: ALLENS TEST POSITIVE
[2024-02-11 06:04] LABS: HEMATOCRIT 26.7 % (32.4-45.2); HEMOGLOBIN 8.5 GM/dL (10.7-15.3); MCH 28.4 pg (25.7-33.7); MEAN PLT VOLUME 9.6 fl (7.5-11.1); PLATELET COUNT 103 10^3/uL (134-434); RDW 15.9 % (11.6-15.6); WHITE BLOOD COUNT 10.3 K/mm3 (4.0-10.0)
[2024-02-11 06:20] LABS: POTASSIUM 3.8 mmol/L (3.5-5.1)
[2024-02-11 06:21] LABS: CALCIUM 8.4 mg/dL (8.5-10.1)
[2024-02-11 06:22] LABS: BLOOD UREA NITROGEN 18.7 mg/dL (7-18)
[2024-02-11 06:25] LABS: CREATININE 0.4 mg/dL (0.55-1.3)
[2024-02-11 10:12] VITALS: BP 128/62; PULSE 75; RESP 16; TEMP 97.9
== END 2024-02-11 13:57 | disposition home or self-care (01) | DRG 189 ==
LOC: JER 17:58 → JERBED 02-08 00:38 → J4S 02-08 15:12
PROVIDERS: ADMIT Internal Medicine; ATTEND Internal Medicine
DX: J96.22 Acute and chronic respiratory failure with hypercapnia (principal); G93.41 Metabolic encephalopathy; R53.2 Functional quadriplegia; J44.1 Chronic obstructive pulmonary disease with (acute) exacerbation; N39.0 Urinary tract infection, site not specified; E87.20 Acidosis, unspecified; I10 Essential (primary) hypertension; E78.5 Hyperlipidemia, unspecified; I25.10 Atherosclerotic heart disease of native coronary artery without angina pectoris; E86.0 Dehydration; M40.209 Unspecified kyphosis, site unspecified
CPT/HCPCS: 0241U-QW; 36415; 36600; 70450-TC; 71045-TC-FY; 80048; 80053; 80307; 81003; 82803; 83605; 83735; 84100; 84484; 85025; 85027; 85610; 85730; 86850; 86900; 86901; 87040; 87086; 87186; 93005; 93010; 94640; 94660; 94761; 97116-GP; 97161-GP; 99285-25

== ENCOUNTER 2024-02-19 21:42 | Inpatient (IN) | payer OTHER ==
[2024-02-19 23:01] LABS: BASO % 0.1 % (0-2.0); EOS % 0.2 % (0-4.5); HEMATOCRIT 28.9 % (32.4-45.2); HEMOGLOBIN 9.3 GM/dL (10.7-15.3); LYMPH % 5.2 % (8-40); MCH 29.1 pg (25.7-33.7); MCHC 32.1 g/dl (32.0-36.0); MEAN CELL VOLUME 90.7 fl (80-96); MEAN PLT VOLUME 9.3 fl (7.5-11.1); MONO % 3.6 % (3.8-10.2); NEUT % 90.9 % (42.8-82.8); PLATELET COUNT 128 10^3/uL (134-434); RBC 3.19 M/mm3 (3.60-5.2); RDW 16.2 % (11.6-15.6); WHITE BLOOD COUNT 10.8 K/mm3 (4.0-10.0)
[2024-02-19 23:07] LABS: INR 1.15 (0.83-1.09); PROTHROMBIN TIME (PATIENT) 12.9 SEC (9.7-13.0)
[2024-02-19] MEDS ORDERED: PIPERACILLIN/TAZOB 4.5 GM 4.5 GM/100 ML BAG IVPB ONE (23:08)
[2024-02-19 23:10] LABS: ACTIVATED PTT 30.2 SECONDS (25.2-36.5); POTASSIUM 3.9 mmol/L (3.5-5.1)
[2024-02-19 23:13] LABS: ALBUMIN 2.6 g/dl (3.4-5.0); BLOOD UREA NITROGEN 20.5 mg/dL (7-18); CALCIUM 8.2 mg/dL (8.5-10.1); MAGNESIUM 1.8 mg/dL (1.8-2.4)
[2024-02-19] MEDS: PIPERACILLIN/TAZOB 4.5 GM 4.5 GM in DEXTROSE 5%-WATER 100 ML IVPB ONE (23:13)
[2024-02-19 23:16] LABS: CREATININE 0.6 mg/dL (0.55-1.3)
[2024-02-19 23:18] LABS: BILIRUBIN,TOTAL 0.5 mg/dL (0.2-1); TOT PROT 5.4 g/dl (6.4-8.2)
[2024-02-19 23:21] LABS: N-TERMINAL BNP 1906.5 pg/ml (5-450)
[2024-02-19] MEDS ORDERED: VANCOMYCIN 1 GRAM (PRE-DOCKED) 1,000 MG/250 ML BAG IVPB ONE (23:25)
[2024-02-19] MEDS: VANCOMYCIN 1,000 MG in DEXTROSE 5%-WATER - 250 ML IVPB ONE (23:37)
[2024-02-20 03:59] LABS: VENOUS BASE EXCESS 6.5 mmol/L (-2-2); VENOUS O2 SATURATION 98.4 % (70-80); VENOUS PCO2 66.7 mmHg (38-52); VENOUS PH 7.324 (7.310-7.410)
[2024-02-20 05:18] VITALS: BMI 24.4
[2024-02-20 07:07] LABS: HEMATOCRIT 28.9 % (32.4-45.2); HEMOGLOBIN 9.2 GM/dL (10.7-15.3); MCH 29.1 pg (25.7-33.7); MCHC 31.7 g/dl (32.0-36.0); PLATELET COUNT 113 10^3/uL (134-434); RBC 3.14 M/mm3 (3.60-5.2); RDW 16.3 % (11.6-15.6); WHITE BLOOD COUNT 9.7 K/mm3 (4.0-10.0)
[2024-02-20 07:22] LABS: POTASSIUM 3.5 mmol/L (3.5-5.1)
[2024-02-20 07:24] LABS: CALCIUM 8.2 mg/dL (8.5-10.1)
[2024-02-20 07:25] LABS: ALBUMIN 2.6 g/dl (3.4-5.0); BLOOD UREA NITROGEN 18.4 mg/dL (7-18)
[2024-02-20 07:28] LABS: CREATININE 0.5 mg/dL (0.55-1.3)
[2024-02-20 07:29] LABS: BILIRUBIN,TOTAL 0.6 mg/dL (0.2-1); TOT PROT 5.1 g/dl (6.4-8.2)
[2024-02-20] MEDS: PIPERACILLIN/TAZOB 3.375 GM 3.375 GM in DEXTROSE 5%-WATER - 50 ML IVPB SCH (10:27)
[2024-02-20] MEDS ORDERED: ESCITALOPRAM OXALATE 10 MG TABLET ONE (11:49)
[2024-02-20] MEDS: PANTOPRAZOLE 20 MG TABLET PO SCH (11:57)
[2024-02-20] MEDS: ASPIRIN COATED 81 MG TABLET.EC PO SCH (11:57)
[2024-02-20] MEDS: ENOXAPARIN NA (PORCINE) 40 MG/0.4 ML DISP.SYRIN SQ SCH (11:58)
[2024-02-20] MEDS: ESCITALOPRAM OXALATE 20 MG TABLET PO SCH (11:59)
[2024-02-20] MEDS: ACETAMINOPHEN 325 MG TABLET (FP) PO ONE (21:18)
[2024-02-20] MEDS: ATORVASTATIN CA 20 MG TABLET (FP) PO SCH (21:18)
[2024-02-20] MEDS ORDERED: VANCOMYCIN/WATER FOR INJ (PEG) 1,000 MG/200 ML BAG IVPB SCH (23:00)
[2024-02-21 05:27] VITALS: RESP 18
[2024-02-21 08:44] LABS: HEMATOCRIT 24.4 % (32.4-45.2); HEMOGLOBIN 8.1 GM/dL (10.7-15.3); MCH 29.8 pg (25.7-33.7); MCHC 33.4 g/dl (32.0-36.0); MEAN CELL VOLUME 89.2 fl (80-96); MEAN PLT VOLUME 9.5 fl (7.5-11.1); PLATELET COUNT 96 10^3/uL (134-434); RBC 2.73 M/mm3 (3.60-5.2); RDW 16.5 % (11.6-15.6); WHITE BLOOD COUNT 6.1 K/mm3 (4.0-10.0)
[2024-02-21 08:57] LABS: CHLORIDE 102 mmol/L (98-107); SODIUM 139 mmol/L (136-145)
[2024-02-21 09:14] LABS: ALBUMIN 2.4 g/dl (3.4-5.0); GLUCOSE,RANDOM 84 mg/dL (74-106); SGPT/ALT 15 U/L (13-61)
[2024-02-21 09:15] LABS: BLOOD UREA NITROGEN 14.6 mg/dL (7-18); CO2 37 mmol/L (21-32); CREATININE 0.4 mg/dL (0.55-1.3); TOT PROT 4.8 g/dl (6.4-8.2)
[2024-02-21 09:16] LABS: BILIRUBIN,TOTAL 0.4 mg/dL (0.2-1); CALCIUM 8.2 mg/dL (8.5-10.1)
[2024-02-21 09:17] LABS: ALK PHOS 80 U/L (45-117); SGOT/AST 12 U/L (15-37)
[2024-02-21 09:26] LABS: ANION GAP 0 mmol/L (4-13); POTASSIUM 2.8 mmol/L (3.5-5.1)
[2024-02-21] MEDS ORDERED: PIPERACILLIN/TAZOB 3.375 GM 3.375 GM in DEXTROSE 5%-WATER - 50 ML IVPB SCH (10:00)
[2024-02-21] MEDS ORDERED: ESCITALOPRAM OXALATE 10 MG TABLET ONE ×2 (11:11→11:41)
[2024-02-21 11:24] LABS: MAGNESIUM 1.8 mg/dL (1.8-2.4)
[2024-02-21] MEDS: POTASSIUM CHLORIDE TABS 20 MEQ TABLET.ER (FP) PO ONE (11:45)
[2024-02-21] MEDS: POTASSIUM CHLORIDE TABS 20 MEQ TABLET.ER (FP) PO SCH (11:47)
[2024-02-21] MEDS: ESCITALOPRAM OXALATE 10 MG TABLET PO SCH (11:48)
[2024-02-21] MEDS ORDERED: VANCOMYCIN/WATER FOR INJ (PEG) 1,000 MG/200 ML BAG IVPB SCH (23:00)
[2024-02-22 09:41] VITALS: BP 130/69; PULSE 92; TEMP 99.5
== END 2024-02-22 11:54 | disposition home or self-care (01) | DRG 190 ==
LOC: JER 21:42 → JERBED 02-20 01:20 → J6S 02-20 04:23
PROVIDERS: ADMIT Internal Medicine; ATTEND Internal Medicine
DX: J44.1 Chronic obstructive pulmonary disease with (acute) exacerbation (principal); G93.41 Metabolic encephalopathy; J96.22 Acute and chronic respiratory failure with hypercapnia; R53.2 Functional quadriplegia; J98.11 Atelectasis; E87.29 Other acidosis; M51.24 Other intervertebral disc displacement, thoracic region; I25.2 Old myocardial infarction; E78.00 Pure hypercholesterolemia, unspecified; I25.10 Atherosclerotic heart disease of native coronary artery without angina pectoris; E78.5 Hyperlipidemia, unspecified; R41.82 Altered mental status, unspecified; D69.6 Thrombocytopenia, unspecified; F32.A Depression, unspecified; K21.9 Gastro-esophageal reflux disease without esophagitis; Z85.3 Personal history of malignant neoplasm of breast; Z95.5 Presence of coronary angioplasty implant and graft
CPT/HCPCS: 0241U-QW; 36415; 71045-TC-FY; 80053; 82803; 83605; 83690; 83735; 83880; 84100; 84484; 85025; 85027; 85610; 85730; 87040; 93005; 93010; 94660; 99285-25

== ENCOUNTER 2024-10-09 11:08 | Inpatient (IN) | payer OTHER ==
[2024-10-09] MEDS ORDERED: MAGNESIUM SULFATE IN WATER 2 GM/50 ML IVPB IVPB ONE (11:18)
[2024-10-09] MEDS ORDERED: ASPIRIN 300 MG SUPP.RECT RC ONE (11:19)
[2024-10-09] MEDS: MAGNESIUM SULF 50% (8.12 MEQ/2 ML-1 GM VIAL) IVPB ONE (11:19)
[2024-10-09] MEDS ORDERED: ALBUTEROL SO4 0.083% IH SOL 2.5 MG/3 ML VIAL.NEB. NEB ONE (11:33)
[2024-10-09] MEDS ORDERED: ROCURONIUM BROMIDE 50 MG/5 ML VIAL ONE (11:36)
[2024-10-09] MEDS ORDERED: KETAMINE HCL 200 MG/20 ML VIAL ONE (11:37)
[2024-10-09 11:40] LABS: HEMATOCRIT 39.7 % (32.4-45.2); HEMOGLOBIN 12.5 GM/dL (10.7-15.3); MCH 29.9 pg (25.7-33.7); MCHC 31.5 g/dl (32.0-36.0); MEAN CELL VOLUME 94.8 fl (80-96); MEAN PLT VOLUME 9.4 fl (7.5-11.1); PLATELET COUNT 169 10^3/uL (134-434); RBC 4.19 M/mm3 (3.60-5.2); RDW 14.8 % (11.6-15.6); WHITE BLOOD COUNT 19.9 K/mm3 (4.0-10.0)
[2024-10-09 11:51] LABS: INR 1.03 (0.83-1.09); PROTHROMBIN TIME (PATIENT) 11.6 SEC (9.7-13.0)
[2024-10-09 11:53] LABS: VENOUS BASE EXCESS -5.5 mmol/L (-2-2); VENOUS O2 SATURATION 54.3 % (70-80)
[2024-10-09 11:54] LABS: ACTIVATED PTT 38.8 SECONDS (25.2-36.5)
[2024-10-09] MEDS ORDERED: MIDAZOLAM IN 0.9 % SOD.CHLORID 1 MG/1 ML PLAST..BAG ONE (11:54)
[2024-10-09 12:01] LABS: VENOUS PCO2 131.7 mmHg (38-52); VENOUS PH 6.973 (7.310-7.410)
[2024-10-09] MEDS: ASPIRIN 300 MG SUPP.RECT RC ONE (12:05)
[2024-10-09] MEDS: MIDAZOLAM IN 0.9 % SOD.CHLORID 100 MG/100 ML PLAST..BAG IVPB SCH (12:06)
[2024-10-09 12:07] LABS: CHLORIDE 102 mmol/L (98-107); POTASSIUM 4.6 mmol/L (3.5-5.1); SODIUM 139 mmol/L (136-145)
[2024-10-09 12:08] LABS: LACTIC ACID 4.4 mmol/L (0.4-2.0)
[2024-10-09 12:09] LABS: CALCIUM 8.9 mg/dL (8.5-10.1); GLUCOSE,RANDOM 211 mg/dL (74-106)
[2024-10-09 12:10] LABS: ALBUMIN 3.4 g/dl (3.4-5.0); ANION GAP 8 mmol/L (4-13); CO2 29 mmol/L (21-32)
[2024-10-09 12:12] LABS: CREATININE 0.8 mg/dL (0.55-1.3)
[2024-10-09] MEDS ORDERED: NOREPINEPHRINE 0.9 % NACL 8 MG/250 ML BAG IVPB ONE (12:12)
[2024-10-09 12:13] LABS: SGOT/AST 46 U/L (15-37); SGPT/ALT 29 U/L (13-61)
[2024-10-09 12:14] LABS: BILIRUBIN,TOTAL 0.6 mg/dL (0.2-1); TOT PROT 6.9 g/dl (6.4-8.2)
[2024-10-09 12:15] LABS: ALK PHOS 145 U/L (45-117)
[2024-10-09 12:17] LABS: N-TERMINAL BNP 3138.3 pg/ml (5-450)
[2024-10-09] MEDS ORDERED: NOREPINEPHRINE BITARTRATE 4 MG/4 ML ML IV ONE (12:18)
[2024-10-09] MEDS: LACTATED RINGERS SOLUTION 1000 ML INFUS.BAG IV ONE (12:19)
[2024-10-09] MEDS: KETAMINE HCL 200 MG/20 ML VIAL IVPUSH ONE (12:19)
[2024-10-09] MEDS: ROCURONIUM BROMIDE 50 MG/5 ML VIAL IV ONE (12:19)
[2024-10-09 12:20] LABS: ANISOCYTOSIS 0; HELMET CELLS 0; HOWELL-JOLLY BODIES 0; MACROCYTOSIS 0; OVALOCYTE 0; ROULEAU 0; SICKELED CELLS 0; TARGET CELLS 0; TEAR DROP CELLS 0; TOXIC GRANULATION 0
[2024-10-09] MEDS: PIPERACILLIN/TAZOB 4.5 GM 4.5 GM in DEXTROSE 5%-WATER 100 ML IVPB ONE (12:30)
[2024-10-09] MEDS ORDERED: PIPERACILLIN/TAZOB 4.5 GM 4.5 GM/100 ML BAG IVPB ONE ×2 (12:34→12:42)
[2024-10-09] MEDS: NOREPINEPHRINE BITARTRATE 4,000 MCG in DEXTROSE 5%-WATER - 496 ML IV SCH (12:38)
[2024-10-09 13:13] LABS: ARTERIAL BLD GAS O2 SATURATION 99.7 % (95-98); ARTERIAL BLOOD GAS BASE EXCESS -4.7 mmol/L (-2-2); ARTERIAL BLOOD GAS PO2 351.2 mmHg (80-100); ARTERIAL BLOOD GAS pH 7.229 (7.350-7.450)
[2024-10-09 14:01] LABS: EPI CELLS 15 /uL (0-25.1); HYALINE CASTS 1 /uL (0-3.1); URINE APPEARANCE CLEAR; URINE BACTERIA 7975 /uL (0-1359); URINE BILIRUBIN NEGATIVE (NEGATIVE); URINE COLOR YELLOW; URINE GLUCOSE (UA) NEGATIVE (NEGATIVE); URINE KETONE NEGATIVE (NEGATIVE); URINE LEUK ESTERASE 1+ (NEGATIVE); URINE NITRITE POSITIVE (NEGATIVE); URINE PROTEIN 1+ (NEGATIVE); URINE RBC 13 /uL (0-23.9); URINE UROBILINOGEN 0.2 mg/dL (0.2-1.0); URINE WBC 31 /uL (0-25.8)
[2024-10-09] MEDS: FENTANYL NS IVPB 500 MCG/100 ML BAG IVPB SCH (14:39)
[2024-10-09 14:47] LABS: LACTIC ACID 2.4 mmol/L (0.4-2.0)
[2024-10-09] MEDS: NOREPINEPHRINE BITARTRATE/D5W 8 MG/250 ML BAG IVPB SCH (15:00)
[2024-10-09] MEDS: ALBUTEROL SO4 2.5/IPRATROPIUM 0.5 INH SOL 3 ML VIAL.NEB. NEB SCH (15:05)
[2024-10-09 15:32] LABS: ARTERIAL BLD GAS O2 SATURATION 99.8 % (95-98); ARTERIAL BLOOD GAS BASE EXCESS 0.5 mmol/L (-2-2); ARTERIAL BLOOD GAS PO2 430.3 mmHg (80-100); ARTERIAL BLOOD GAS pH 7.359 (7.350-7.450)
[2024-10-09 15:36] LABS: ALLENS TEST POSITIVE; VENT MODE A/C; VENT RATE 18
[2024-10-09] MEDS: VANCOMYCIN/WATER FOR INJ (PEG) 1,000 MG/200 ML BAG IVPB ONE (15:36)
[2024-10-09] MEDS: ENOXAPARIN NA (PORCINE) 40 MG/0.4 ML DISP.SYRIN SQ SCH (15:37)
[2024-10-09] MEDS: VANCOMYCIN 1,000 MG in DEXTROSE 5%-WATER - 250 ML IVPB ONE (15:37)
[2024-10-09] MEDS: methylPREDNISolone NA SUCC 40 MG/1 ML VIAL IVPUSH SCH (15:37)
[2024-10-09] MEDS: AZITHROMYCIN IVPB 500 MG/250 ML BAG IVPB ONE (17:13)
[2024-10-09] MEDS: DEXMEDETOMIDINE PREMIX 400 MCG/100 ML BAG IVPB SCH (19:30)
[2024-10-09] MEDS: CHLORHEXIDINE GLUCONATE 4% CLEANSER FOR DECOLONIZATION TP SCH (21:18)
[2024-10-09] MEDS: ATORVASTATIN CA 80 MG TABLET (FP) NGT SCH (21:18)
[2024-10-09] MEDS: MUPIROCIN 2% TOPICAL OINTMENT FOR DECOLONIZATION NS SCH (21:18)
[2024-10-09] MEDS: ENOXAPARIN NA (PORCINE) 80 MG/0.8 ML DISP.SYRIN SQ SCH (21:18)
[2024-10-09] MEDS: GABAPENTIN 300 MG CAPSULE NGT SCH (21:18)
[2024-10-10] MEDS: PIPERACILLIN/TAZOB 3.375 GM 50 ML IVPB SCH (02:04)
[2024-10-10] MEDS: AZITHROMYCIN IVPB 500 MG in DEXTROSE 5%-WATER - 250 ML IVPB ONE (07:47)
[2024-10-10 08:10] LABS: INR 1.13 (0.83-1.09)
[2024-10-10 08:12] LABS: ACTIVATED PTT 41.5 SECONDS (25.2-36.5)
[2024-10-10 08:14] LABS: BASO % 0.1 % (0-2.0); HEMATOCRIT 32.4 % (32.4-45.2); HEMOGLOBIN 10.6 GM/dL (10.7-15.3); LYMPH % 10.1 % (8-40); MCH 29.9 pg (25.7-33.7); MCHC 32.7 g/dl (32.0-36.0); MEAN CELL VOLUME 91.3 fl (80-96); MEAN PLT VOLUME 9.9 fl (7.5-11.1); MONO % 1.4 % (3.8-10.2); NEUT % 88.4 % (42.8-82.8); PLATELET COUNT 122 10^3/uL (134-434); RBC 3.55 M/mm3 (3.60-5.2); RDW 14.5 % (11.6-15.6)
[2024-10-10 08:22] LABS: POTASSIUM 4.1 mmol/L (3.5-5.1)
[2024-10-10 08:26] LABS: ALBUMIN 2.9 g/dl (3.4-5.0); CALCIUM 8.4 mg/dL (8.5-10.1)
[2024-10-10 08:27] LABS: BLOOD UREA NITROGEN 26.4 mg/dL (7-18); MAGNESIUM 1.8 mg/dL (1.8-2.4)
[2024-10-10 08:30] LABS: CREATININE 0.6 mg/dL (0.55-1.3)
[2024-10-10 08:31] LABS: BILIRUBIN,TOTAL 0.7 mg/dL (0.2-1); TOT PROT 5.5 g/dl (6.4-8.2)
[2024-10-10] MEDS: ASPIRIN 81 MG CHEWABLE TABLETS NGT SCH (09:20)
[2024-10-10] MEDS: PANTOPRAZOLE SODIUM 40 MG VIAL IVPUSH SCH (09:20)
[2024-10-10] MEDS ORDERED: ENOXAPARIN NA (PORCINE) 80 MG/0.8 ML DISP.SYRIN SQ SCH (10:00)
[2024-10-10 11:38] LABS: ARTERIAL BLD GAS O2 SATURATION 97.5 % (95-98); ARTERIAL BLOOD GAS BASE EXCESS 2.8 mmol/L (-2-2); ARTERIAL BLOOD GAS PO2 94.6 mmHg (80-100); ARTERIAL BLOOD GAS pH 7.449 (7.350-7.450)
[2024-10-10 11:40] LABS: ALLENS TEST POSITIVE
[2024-10-10 11:41] LABS: VENT MODE PSV +10
[2024-10-10] MEDS: ESCITALOPRAM OXALATE 10 MG TABLET PO SCH (11:48)
[2024-10-10] MEDS: PIPERACILLIN/TAZOB 4.5 GM 4.5 GM/100 ML BAG IVPB SCH (17:15)
[2024-10-11 07:31] LABS: HEMATOCRIT 30.5 % (32.4-45.2); HEMOGLOBIN 9.9 GM/dL (10.7-15.3); MCH 29.5 pg (25.7-33.7); MCHC 32.4 g/dl (32.0-36.0); MEAN CELL VOLUME 91.2 fl (80-96); MEAN PLT VOLUME 9.9 fl (7.5-11.1); PLATELET COUNT 108 10^3/uL (134-434); RBC 3.34 M/mm3 (3.60-5.2); RDW 14.4 % (11.6-15.6)
[2024-10-11 08:01] LABS: ALBUMIN 2.8 g/dl (3.4-5.0); CALCIUM 8.3 mg/dL (8.5-10.1)
[2024-10-11 08:02] LABS: BLOOD UREA NITROGEN 34.6 mg/dL (7-18)
[2024-10-11 08:05] LABS: CREATININE 0.6 mg/dL (0.55-1.3); PHOSPHOROUS 3.6 mg/dL (2.5-4.9)
[2024-10-11 08:06] LABS: BILIRUBIN,TOTAL 0.7 mg/dL (0.2-1); TOT PROT 5.6 g/dl (6.4-8.2)
[2024-10-11 09:10] LABS: ANISOCYTOSIS 0; MACROCYTOSIS 0
[2024-10-11] MEDS: SODIUM CHLORIDE 1,000 ML IV SCH (15:17)
[2024-10-11] MEDS: ACETAMINOPHEN 1000 MG/100 ML BAG IVPB ONE (20:35)
[2024-10-12 06:59] LABS: HEMATOCRIT 27.8 % (32.4-45.2); HEMOGLOBIN 8.9 GM/dL (10.7-15.3); MCH 29.4 pg (25.7-33.7); MCHC 32.1 g/dl (32.0-36.0); MEAN CELL VOLUME 91.8 fl (80-96); MEAN PLT VOLUME 9.9 fl (7.5-11.1); PLATELET COUNT 114 10^3/uL (134-434); RBC 3.02 M/mm3 (3.60-5.2); RDW 14.8 % (11.6-15.6); WHITE BLOOD COUNT 13.5 K/mm3 (4.0-10.0)
[2024-10-12 07:16] LABS: CHLORIDE 108 mmol/L (98-107); SODIUM 143 mmol/L (136-145)
[2024-10-12 07:23] LABS: ALBUMIN 2.8 g/dl (3.4-5.0); BLOOD UREA NITROGEN 31.8 mg/dL (7-18); CALCIUM 7.6 mg/dL (8.5-10.1); CO2 31 mmol/L (21-32); GLUCOSE,RANDOM 115 mg/dL (74-106)
[2024-10-12 07:26] LABS: ANION GAP 4 mmol/L (4-13); CREATININE 0.5 mg/dL (0.55-1.3); PHOSPHOROUS 3.1 mg/dL (2.5-4.9); POTASSIUM 2.8 mmol/L (3.5-5.1); SGOT/AST 59 U/L (15-37); SGPT/ALT 50 U/L (13-61)
[2024-10-12 07:27] LABS: BILIRUBIN,TOTAL 0.8 mg/dL (0.2-1)
[2024-10-12 07:28] LABS: ALK PHOS 67 U/L (45-117); TOT PROT 5.1 g/dl (6.4-8.2)
[2024-10-12 09:08] LABS: ANISOCYTOSIS 0; MACROCYTOSIS 0
[2024-10-12 10:32] LABS: CHLORIDE 108 mmol/L (98-107); SODIUM 144 mmol/L (136-145)
[2024-10-12 10:33] LABS: BLOOD UREA NITROGEN 30.7 mg/dL (7-18); CALCIUM 7.9 mg/dL (8.5-10.1); CO2 29 mmol/L (21-32); GLUCOSE,RANDOM 114 mg/dL (74-106)
[2024-10-12 10:37] LABS: CREATININE 0.6 mg/dL (0.55-1.3)
[2024-10-12 10:38] LABS: ANION GAP 6 mmol/L (4-13); POTASSIUM 2.6 mmol/L (3.5-5.1)
[2024-10-12] MEDS ORDERED: KCL 10 MEQ IVPB 10 MEQ/100 ML INFUS.BAG IVPB SCH (11:00)
[2024-10-12] MEDS: KCL 20 MEQ PREMIX BAG 20 MEQ/100 ML INFUS.BAG IVPB SCH (11:25)
[2024-10-12] MEDS: MELATONIN 5 MG TABLETS PO ONE (22:42)
[2024-10-13 07:44] LABS: HEMATOCRIT 25.8 % (32.4-45.2); HEMOGLOBIN 8.6 GM/dL (10.7-15.3); MCH 30.2 pg (25.7-33.7); MCHC 33.2 g/dl (32.0-36.0); MEAN PLT VOLUME 9.8 fl (7.5-11.1); PLATELET COUNT 99 10^3/uL (134-434); POTASSIUM 3.2 mmol/L (3.5-5.1); RBC 2.84 M/mm3 (3.60-5.2); RDW 14.6 % (11.6-15.6); WHITE BLOOD COUNT 8.8 K/mm3 (4.0-10.0)
[2024-10-13 07:54] LABS: ALBUMIN 2.7 g/dl (3.4-5.0)
[2024-10-13 07:55] LABS: BLOOD UREA NITROGEN 32.3 mg/dL (7-18); CALCIUM 7.6 mg/dL (8.5-10.1)
[2024-10-13 07:58] LABS: CREATININE 0.5 mg/dL (0.55-1.3); PHOSPHOROUS 3.3 mg/dL (2.5-4.9)
[2024-10-13 08:00] LABS: BILIRUBIN,TOTAL 0.5 mg/dL (0.2-1); TOT PROT 4.9 g/dl (6.4-8.2)
[2024-10-13] MEDS: POTASSIUM CHLORIDE ORAL LIQUID 20 MEQ/15 ML PO ONE ×2 (08:25→21:10)
[2024-10-13] MEDS: KCL 10 MEQ IVPB 10 MEQ/100 ML INFUS.BAG IVPB SCH (08:25)
[2024-10-13] MEDS: CEFTRIAXONE 1 G/50 ML PREMIX 50 ML IVPB SCH (09:10)
[2024-10-13] MEDS: LACTOBACILLUS ACIDOPHILUS 1 TABLET PO SCH (10:39)
[2024-10-13] MEDS: ZINC OXIDE/PETROLATUM,WHITE 1 APPLIC OINT...G. TP SCH (11:47)
[2024-10-13] MEDS: MELATONIN 5 MG TABLETS PO ONE (21:10)
[2024-10-14 07:02] LABS: HEMATOCRIT 26.1 % (32.4-45.2); HEMOGLOBIN 8.5 GM/dL (10.7-15.3); MCHC 32.3 g/dl (32.0-36.0); MEAN CELL VOLUME 92.9 fl (80-96); MEAN PLT VOLUME 10.1 fl (7.5-11.1); PLATELET COUNT 101 10^3/uL (134-434); RBC 2.81 M/mm3 (3.60-5.2); RDW 14.7 % (11.6-15.6); WHITE BLOOD COUNT 7.9 K/mm3 (4.0-10.0)
[2024-10-14 07:21] LABS: POTASSIUM 4.2 mmol/L (3.5-5.1)
[2024-10-14 07:24] LABS: ALBUMIN 2.9 g/dl (3.4-5.0); BLOOD UREA NITROGEN 32.2 mg/dL (7-18); MAGNESIUM 1.9 mg/dL (1.8-2.4)
[2024-10-14 07:27] LABS: CREATININE 0.5 mg/dL (0.55-1.3); PHOSPHOROUS 2.5 mg/dL (2.5-4.9)
[2024-10-14 07:29] LABS: BILIRUBIN,TOTAL 0.5 mg/dL (0.2-1); TOT PROT 5.2 g/dl (6.4-8.2)
[2024-10-14 09:01] LABS: ANISOCYTOSIS 0; MACROCYTOSIS 0
[2024-10-14] MEDS: ALBUTEROL SO4 2.5/IPRATROPIUM 0.5 INH SOL 3 ML VIAL.NEB. NEB PRN (11:30)
[2024-10-14 12:04] VITALS: BMI 27.2
[2024-10-14] MEDS ORDERED: ACETAMINOPHEN 325 MG TABLET (FP) PO PRN (16:15)
[2024-10-14] MEDS: methylPREDNISolone NA SUCC 40 MG/1 ML VIAL IVPUSH SCH (16:55)
[2024-10-14] MEDS: AMINO ACIDS/PROTEIN HYDROLYS 30 ML LIQUID.PKT PO SCH (16:55)
[2024-10-14] MEDS ORDERED: methylPREDNISolone NA SUCC 40 MG/1 ML VIAL IVPUSH SCH (18:00)
[2024-10-14 18:21] LABS: EPI CELLS 19 /uL (0-25.1); HYALINE CASTS 0 /uL (0-3.1); PH,URINE 5.5 (5.0-8.0); URINE APPEARANCE CLOUDY; URINE BACTERIA 28 /uL (0-1359); URINE BILIRUBIN NEGATIVE (NEGATIVE); URINE COLOR YELLOW; URINE GLUCOSE (UA) NEGATIVE (NEGATIVE); URINE KETONE NEGATIVE (NEGATIVE); URINE LEUK ESTERASE NEGATIVE (NEGATIVE); URINE NITRITE NEGATIVE (NEGATIVE); URINE PROTEIN 2+ (NEGATIVE); URINE RBC 6 /uL (0-23.9); URINE UROBILINOGEN 0.2 mg/dL (0.2-1.0); URINE WBC 38 /uL (0-25.8)
[2024-10-14 19:04] LABS: URINE CRYSTALS NONE SEEN /hpf
[2024-10-15 07:30] LABS: BASO % 0.2 % (0-2.0); HEMOGLOBIN 8.8 GM/dL (10.7-15.3); LYMPH % 8.4 % (8-40); MCH 30.7 pg (25.7-33.7); MCHC 33.7 g/dl (32.0-36.0); MEAN CELL VOLUME 91.1 fl (80-96); MEAN PLT VOLUME 9.3 fl (7.5-11.1); MONO % 7.6 % (3.8-10.2); NEUT % 83.8 % (42.8-82.8); PLATELET COUNT 100 10^3/uL (134-434); RBC 2.86 M/mm3 (3.60-5.2); RDW 14.5 % (11.6-15.6); WHITE BLOOD COUNT 8.9 K/mm3 (4.0-10.0)
[2024-10-15 07:54] LABS: POTASSIUM 3.5 mmol/L (3.5-5.1)
[2024-10-15 08:01] LABS: CALCIUM 7.8 mg/dL (8.5-10.1); MAGNESIUM 1.8 mg/dL (1.8-2.4)
[2024-10-15 08:02] LABS: ALBUMIN 2.9 g/dl (3.4-5.0); CREATININE 0.6 mg/dL (0.55-1.3)
[2024-10-15 08:03] LABS: BLOOD UREA NITROGEN 35.9 mg/dL (7-18)
[2024-10-15 08:05] LABS: PHOSPHOROUS 2.5 mg/dL (2.5-4.9)
[2024-10-15 08:06] LABS: BILIRUBIN,TOTAL 0.4 mg/dL (0.2-1); TOT PROT 5.3 g/dl (6.4-8.2)
[2024-10-15] MEDS: ENOXAPARIN NA (PORCINE) 40 MG/0.4 ML DISP.SYRIN SQ SCH (09:39)
[2024-10-15] MEDS: MULTIVITAMINS (DAILY MVI) TABLET (FP) PO SCH (09:40)
[2024-10-15] MEDS: SOTALOL HCL 80 MG TABLET (FP) PO SCH (09:41)
[2024-10-15] MEDS ORDERED: GABAPENTIN 300 MG CAPSULE NGT SCH (22:00)
[2024-10-15] MEDS ORDERED: ATORVASTATIN CA 80 MG TABLET (FP) NGT SCH (22:00)
[2024-10-15] MEDS: ATORVASTATIN CA 80 MG TABLET (FP) PO SCH (23:00)
[2024-10-15] MEDS: GABAPENTIN 300 MG CAPSULE PO SCH (23:35)
[2024-10-16 07:51] LABS: POTASSIUM 3.3 mmol/L (3.5-5.1)
[2024-10-16 08:05] LABS: ALBUMIN 2.8 g/dl (3.4-5.0); BLOOD UREA NITROGEN 33.8 mg/dL (7-18)
[2024-10-16 08:08] LABS: CREATININE 0.4 mg/dL (0.55-1.3)
[2024-10-16 08:09] LABS: TOT PROT 5.1 g/dl (6.4-8.2)
[2024-10-16 08:11] LABS: HEMATOCRIT 28.2 % (32.4-45.2); HEMOGLOBIN 9.3 GM/dL (10.7-15.3); MCH 30.1 pg (25.7-33.7); MCHC 33.1 g/dl (32.0-36.0); MEAN PLT VOLUME 9.6 fl (7.5-11.1); PLATELET COUNT 119 10^3/uL (134-434); WHITE BLOOD COUNT 9.3 K/mm3 (4.0-10.0)
[2024-10-16 08:12] LABS: BILIRUBIN,TOTAL 0.5 mg/dL (0.2-1); PHOSPHOROUS 3.3 mg/dL (2.5-4.9)
[2024-10-16] MEDS ORDERED: ASPIRIN 81 MG CHEWABLE TABLETS NGT SCH (10:00)
[2024-10-16] MEDS: ESCITALOPRAM OXALATE 20 MG TABLET PO SCH (11:19)
[2024-10-16] MEDS: ASPIRIN 81 MG CHEWABLE TABLETS PO SCH (11:19)
[2024-10-16] MEDS: PANTOPRAZOLE SODIUM 40 MG VIAL IVPUSH SCH (11:20)
[2024-10-16] MEDS: FUROSEMIDE 40 MG/4 ML INJECTABLE VIAL IVPUSH ONE (11:24)
[2024-10-16] MEDS: POTASSIUM CHLORIDE TABS 20 MEQ TABLET.ER (FP) PO ONE (15:23)
[2024-10-17 08:08] LABS: POTASSIUM 3.5 mmol/L (3.5-5.1)
[2024-10-17 08:10] LABS: CALCIUM 7.9 mg/dL (8.5-10.1)
[2024-10-17 08:12] LABS: BLOOD UREA NITROGEN 33.8 mg/dL (7-18); MAGNESIUM 1.8 mg/dL (1.8-2.4)
[2024-10-17 08:14] LABS: CREATININE 0.4 mg/dL (0.55-1.3); PHOSPHOROUS 3.4 mg/dL (2.5-4.9)
[2024-10-17] MEDS ORDERED: INSULIN ASPART SLIDING SCALE (NOVOLOG) 1 VIAL SQ ONE (16:51)
[2024-10-17] MEDS: methylPREDNISolone NA SUCC 40 MG/1 ML VIAL IVPUSH SCH (21:22)
[2024-10-18 07:41] LABS: HEMATOCRIT 30.1 % (32.4-45.2); MCH 30.2 pg (25.7-33.7); MCHC 33.1 g/dl (32.0-36.0); MEAN CELL VOLUME 91.2 fl (80-96); MEAN PLT VOLUME 9.2 fl (7.5-11.1); PLATELET COUNT 163 10^3/uL (134-434); RDW 14.6 % (11.6-15.6); WHITE BLOOD COUNT 11.8 K/mm3 (4.0-10.0)
[2024-10-18 07:55] LABS: CALCIUM 7.6 mg/dL (8.5-10.1); POTASSIUM 3.4 mmol/L (3.5-5.1)
[2024-10-18 07:56] LABS: BLOOD UREA NITROGEN 32.9 mg/dL (7-18)
[2024-10-18 07:59] LABS: CREATININE 0.4 mg/dL (0.55-1.3)
[2024-10-18] MEDS: POTASSIUM CHLORIDE ORAL LIQUID 20 MEQ/15 ML PO ONE (14:19)
[2024-10-19] MEDS: methylPREDNISolone NA SUCC 40 MG/1 ML VIAL IVPUSH SCH (09:04)
[2024-10-19] MEDS: PANTOPRAZOLE 40 MG TABLET PO SCH (09:04)
[2024-10-19 11:41] LABS: POTASSIUM 3.4 mmol/L (3.5-5.1)
[2024-10-19 11:44] LABS: BLOOD UREA NITROGEN 30.6 mg/dL (7-18); CALCIUM 8.1 mg/dL (8.5-10.1)
[2024-10-19 11:47] LABS: CREATININE 0.4 mg/dL (0.55-1.3)
[2024-10-19] MEDS: ALBUTEROL SO4 2.5/IPRATROPIUM 0.5 INH SOL 3 ML VIAL.NEB. NEB PRN (20:10)
[2024-10-19 22:18] VITALS: BP 144/63; PULSE 73; RESP 19; TEMP 98.1
== END 2024-10-19 22:39 | disposition home or self-care (01) | DRG 871 ==
LOC: JER 11:08 → JERBED 11:50 → JICU 14:19 → J4W 10-15 17:23
PROVIDERS: ADMIT Internal Medicine Pulmonary Disease; ATTEND Internal Medicine
PROC: 05HM33Z Insertion of Infusion Device into Right Internal Jugular Vein, Percutaneous Approach (ICD-10-PCS; principal; 2024-10-09)
PROC: 5A1945Z Respiratory Ventilation, 24-96 Consecutive Hours (ICD-10-PCS; 2024-10-09)
PROC: 0BH17EZ Insertion of Endotracheal Airway into Trachea, Via Natural or Artificial Opening (ICD-10-PCS; 2024-10-09)
DX: A41.9 Sepsis, unspecified organism (principal); I21.4 Non-ST elevation (NSTEMI) myocardial infarction; J96.22 Acute and chronic respiratory failure with hypercapnia; J96.21 Acute and chronic respiratory failure with hypoxia; J18.9 Pneumonia, unspecified organism; R65.21 Severe sepsis with septic shock; R53.2 Functional quadriplegia; N39.0 Urinary tract infection, site not specified; J44.1 Chronic obstructive pulmonary disease with (acute) exacerbation; J44.0 Chronic obstructive pulmonary disease with (acute) lower respiratory infection; I10 Essential (primary) hypertension; I25.10 Atherosclerotic heart disease of native coronary artery without angina pectoris; E78.5 Hyperlipidemia, unspecified; K21.9 Gastro-esophageal reflux disease without esophagitis; E87.6 Hypokalemia; D69.6 Thrombocytopenia, unspecified; D64.9 Anemia, unspecified; R19.7 Diarrhea, unspecified
CPT/HCPCS: 0241U-QW; 36415; 36600; 71045-TC-FY; 74018-TC-FY; 74176-TC; 80048; 80053; 81003; 82272; 82728; 82803; 83036; 83540; 83550; 83605; 83735; 83880; 84100; 84436; 84443; 84466; 84479; 84484; 85025; 85027; 85610; 85730; 86850; 86900; 86901; 87040; 87070; 87086; 87186; 87205; 87324; 87449; 87481; 93005; 93010; 93306-TC; 93971-TC; 94002; 94640; 97116-GP; 97162-GP; 99291; 99292; J0131